=== PATIENT | female | born 1940 | race Caucasian/White ===

== ENCOUNTER 2017-04-15 09:30 | Observation (INO) | payer OTHER, BC ==
[2017-04-15] VITALS (7 sets, daily range): BP systolic 116–139; BP diastolic 72–84; PULSE 72–89; TEMP 36.6–36.8; O2SAT 93–98; Ht 172.7 cm; Wt 76.1 kg
[~2017-04-15] VITALS: Ht 172.7 cm; Wt 76.1 kg
[~2017-04-15 09:30] MED LIST: AMOX500C3 PO; vitamin c
[2017-04-15] MEDS ORDERED: SODIUM CHLORIDE 0.9% 1000ML 1,000 ML IV STA (09:48)
--- NOTE | 2017-04-15 10:01 | EMERGENCY ROOM VISIT NOTE ---
History Report prepared by Maura: Alexsandra Ortega Under the Supervision of: Dr. Ephraim Don M.D. First contact with patient: 09:34 Chief Complaint: OTHER COMPLAINT Stated Complaint: cramping History of Present Illness The patient is a 76 year old female who presents to the Emergency Room with complaints of intermittent left sided numbness that began around 0815 this morning. The patient states that she woke this morning shortly after 0800 and states that around 0815 she developed what she thought was a left sided leg cramp. She states that she then began noticing the numbness in her left leg and left arm. The patient states that she felt weak in her left leg, noting that she could not walk and thought that her leg would give out from under her. She states that her symptoms subsided, but then came back another time. The patient states that last night she took her first dose of an antibiotic for a sinus infection. Source of History: patient Onset: around 0815 this morning Position: other (left sided) Quality: numbness Timing: intermittent Associated Symptoms: + weakness (left leg) Note: Associated symptoms: left leg cramp Review of Systems See HPI for pertinent positives & negatives. A total of 10 systems reviewed and were otherwise negative. Past Medical & Surgical Medical Problems: (1) No Known Active Medical Problems Family History Cancer Social History Marital Status: Occupation Status: retired Current/Historical Medications Scheduled Cefdinir (Omnicef), 12 ML PO BID Vitamins C & E (Vitamin C), 1 CAP PO DAILY Allergies Coded Allergies: Amoxicillin (Unverified Allergy, Unknown, ., 04/15/17) Doxycycline (Unverified Allergy, Unknown, ., 04/15/17) Tetracycline (Unverified Allergy, Unknown, 04/15/17) Prednisone (Verified Adverse Reaction, Mild, LOSES HER TASTE, 04/15/17) Physical Exam Vital Signs Date Time Temp Pulse Resp B/P (MAP) Pulse Ox O2 Delivery O2 Flow Rate FiO2 04/15/17 12:46 79 20 167/95 97 Room Air 04/15/17 10:58 83 04/15/17 10:30 84 15 170/93 04/15/17 10:21 78 14 172/96 95 Room Air 04/15/17 09:58 96 Room Air 04/15/17 09:40 36.9 92 18 168/96 96 Room Air Physical Exam GENERAL: Patient appears acutely agitated, well-nourished female HEAD: Normocephalic atraumatic EYES: Ocular movements intact pupils equal and react to light OROPHARYNX mucous membranes are moist no exudates present no erythema or edema present NECK: Supple no nuchal rigidity CHEST: Good equal expansion LUNGS: Clear and equal to auscultation CARDIAC: Normal S1 and S2 ABDOMEN: Soft nontender no guarding BACK: No CVA tenderness EXTREMITIES: No pain upon palpation normal muscle strength in all groups no clubbing cyanosis or edema NEURO: Patient is following commands and answering questions appropriately. Alert and oriented x3 Cranial Nerves 2-12 grossly intact, 4/5 strength in left arm. Medical Decision & Procedures ER Provider Diagnostic Interpretation: Radiology results as stated below per my review and radiologist interpretation: CT HEAD WITHOUT CONTRAST (CT) CLINICAL HISTORY: Stroke LEFT ARM AND LEG NUMBNESS. COMPARISON STUDY: No previous studies for comparison. TECHNIQUE: Axial CT of the brain is performed from the vertex to the skull base. IV contrast was not administered for this examination. A dose lowering technique was utilized adhering to the principles of ALARA. CT DOSE: 729.78 mGycm FINDINGS: No intra or extra-axial mass lesions are visualized. There is no CT evidence of acute cortical infarction. There is no evidence of midline shift. There is no acute hemorrhage. No calvarial fractures are visualized. There is no evidence of pathologic ventricular dilatation. There is no evidence of acute sinusitis. There is mild mucosal thickening within the maxillary sphenoid and frontal sinuses. IMPRESSION: No acute intracranial findings Electronically signed by: Fabian Robles M.D. 04/15/2017 10:16 AM Dictated Date/Time: 04/15/2017 10:15 AM CHEST ONE VIEW PORTABLE CLINICAL HISTORY: Stroke COMPARISON STUDY: No previous studies for comparison. FINDINGS: The heart is at the upper limits of normal in size. There is aortic tortuosity. There is no failure. There is no focal pulmonary consolidation. No pleural effusions are visualized.[ IMPRESSION: No active disease in the chest. Electronically signed by: Fabian Robles M.D. 04/15/2017 10:12 AM Dictated Date/Time: 04/15/2017 10:[address] NECK ANGIO WITH CONTRAST CLINICAL HISTORY: Left-sided weakness. Possible stroke. COMPARISON STUDY: No previous studies for comparison. TECHNIQUE: CT angiography was performed from the aortic arch to the skull base. MIP imaging was performed. The patient was scanned in a dynamic helical fashion during intravenous administration of 120 cc of Optiray 320. A dose lowering technique was utilized adhering to the principles of ALARA. CT DOSE: 626.03 mGy.cm Technique: CT angiogram of the carotid and vertebral arteries was obtained using intravenous contrast and 3-D reconstruction. NASCET criteria was utilized. Findings: The right carotid revealed no evidence of aneurysm and no evidence of dissection. There is no evidence of hemodynamic significant stenosis. There is atheromatous plaque present within the common carotid resulting a 30% diameter stenosis. There is no evidence of hemodynamic significant internal carotid artery stenosis. There is no evidence of aneurysm or dissection. There is no evidence of hemodynamically significant vertebral stenosis. There is no evidence of vertebral dissection. 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 No evidence of hemodynamically significant carotid or vertebral artery stenosis. No evidence of dissection. Electronically signed by: Fabian Robles M.D. 04/15/2017 11:44 AM Dictated Date/Time: 04/15/2017 11:[address] HEAD ANGIO WITH CONTRAST CLINICAL HISTORY: Left-sided weakness. Possible stroke. TECHNIQUE: CT angiography of the head was performed in a dynamic helical fashion during intravenous administration of 120. cc of Optiray 320. A dose lowering technique was utilized adhering to the principles of ALARA. MIP imaging was performed. CT DOSE: COMPARISON STUDY: Noncontrast head CT dated 04/13/2017 FINDINGS: There are no lesion suspicious for aneurysm. There are no major intracranial branch occlusions. The dural venous sinuses appear patent. IMPRESSION: Normal study. Electronically signed by: Fabian Robles M.D. 04/15/2017 11:32 AM Dictated Date/Time: 04/15/2017 11:29 AM Laboratory Results 04/15/17 10:00 Red Blood Count 4.79, Mean Corpuscular Volume 96.9, Mean Corpuscular Hemoglobin 35.1, Mean Corpuscular Hemoglobin Concent 36.2, Mean Platelet Volume 9.2, Neutrophils (%) (Auto) 46.9, Lymphocytes (%) (Auto) 41.9, Monocytes (%) (Auto) 7.4, Eosinophils (%) (Auto) 3.0, Basophils (%) (Auto) 0.7, Neutrophils # (Auto) 3.17, Lymphocytes # (Auto) 2.84, Monocytes # (Auto) 0.50, Eosinophils # (Auto) 0.20, Basophils # (Auto) 0.05 04/15/17 10:00 Test 04/15/17 10:00 04/15/17 10:16 04/15/17 10:18 04/15/17 11:30 White Blood Count 6.77 K/uL (4.8-10.8) Red Blood Count 4.79 M/uL (4.2-5.4) Hemoglobin 16.8 g/dL (12.0-16.0) Hematocrit 46.4 % (37-47) Mean Corpuscular Volume 96.9 fL (80-100) Mean Corpuscular Hemoglobin 35.1 pg (25-34) Mean Corpuscular Hemoglobin Concent 36.2 g/dl (32-36) Platelet Count 325 K/uL (130-400) Mean Platelet Volume 9.2 fL (7.4-10.4) Neutrophils (%) (Auto) 46.9 % Lymphocytes (%) (Auto) 41.9 % Monocytes (%) (Auto) 7.4 % Eosinophils (%) (Auto) 3.0 % Basophils (%) (Auto) 0.7 % Neutrophils # (Auto) 3.17 K/uL (1.4-6.5) Lymphocytes # (Auto) 2.84 K/uL (1.2-3.4) Monocytes # (Auto) 0.50 K/uL (0.11-0.59) Eosinophils # (Auto) 0.20 K/uL (0-0.5) Basophils # (Auto) 0.05 K/uL (0-0.2) RDW Standard Deviation 44.5 fL (36.4-46.3) RDW Coefficient of Variation 12.6 % (11.5-14.5) Immature Granulocyte % (Auto) 0.1 % Immature Granulocyte # (Auto) 0.01 K/uL (0.00-0.02) Prothrombin Time 10.6 SECONDS (9.0-12.0) Prothromb Time International Ratio 1.0 (0.9-1.1) Activated Partial Thromboplast Time 26.9 SECONDS (21.0-31.0) Partial Thromboplastin Ratio 1.0 Anion Gap 11.0 mmol/L (3-11) Est Creatinine Clear Calc Drug Dose 54.7 ml/min Estimated GFR () 72.0 Estimated GFR (Non- 62.2 BUN/Creatinine Ratio 10.4 (10-20) Calcium Level 9.3 mg/dl (8.5-10.1) Magnesium Level 2.3 mg/dl (1.8-2.4) Total Creatine Kinase 201 U/L (26-192) Creatine Kinase MB 4.2 ng/ml (0.5-3.6) Creatine Kinase MB Ratio 2.1 (0-3.0) Troponin I < 0.015 ng/ml (0-0.045) Ethyl Alcohol mg/dL < 3.0 mg/dl (0-3) Bedside Glucose 99 mg/dl (70-90) Urine Color YELLOW Urine Appearance CLEAR (CLEAR) Urine pH 5.5 (4.5-7.5) Urine Specific [place] 1.022 (1.000-1.030) Urine Protein NEG (NEG) Urine Glucose (UA) NEG (NEG) Urine Ketones NEG (NEG) Urine Occult Blood NEG (NEG) Urine Nitrite NEG (NEG) Urine Bilirubin NEG (NEG) Urine Urobilinogen NEG (NEG) Urine Leukocyte Esterase SMALL (NEG) Urine WBC (Auto) 1-5 /hpf (0-5) Urine RBC (Auto) 0-4 /hpf (0-4) Urine Hyaline Casts (Auto) 0 /lpf (0-5) Urine Epithelial Cells (Auto) 10-20 /lpf (0-5) Urine Bacteria (Auto) NEG (NEG) Urine Opiates Screen NEG (NEG) Urine Methadone, Qualitative NEG (NEG) Urine Barbiturates NEG (NEG) Urine Phencyclidine (PCP) Level NEG (NEG) Ur Amphetamine/Methamphetamine NEG (NEG) MDMA (Ecstasy) Screen NEG (NEG) Urine Benzodiazepines Screen NEG (NEG) Urine Cocaine Metabolite NEG (NEG) Urine Marijuana (THC) NEG (NEG) Labs reviewed by ED physician. Medications Administered Medications (Trade) Dose Ordered Sig/Davin Route Start Time Stop Time Status Last Admin Dose Admin Sodium Chloride 1,000 ml @ 999 mls/hr Q1H1M STAT IV 04/15/17 09:48 04/15/17 10:48 DC 04/15/17 09:48 999 MLS/HR Aspirin (Aspirin Chew) 324 mg NOW STAT PO 04/15/17 10:40 04/15/17 10:41 DC 04/15/17 10:40 324 MG ECG Indication: weakness (and numbness) Rate (beats per minute): 73 Rhythm: normal sinus Findings: no acute ischemic change, no ectopy ED Course 0939: Past medical records reviewed. The patient was evaluated in room A11B. A complete history and physical examination was performed. 0948: Ordered Sodium Chloride 1000 ml @ 999 mls/hr IV. 1020: I spoke to Jazmyn Kenney Neurology. She states that she will evaluate the patient via TeleStroke. 1022: I updated the patient and her friends and family at this time. 1039: I spoke to Jazmyn Kenney Neurology at this time. She would like the patient to have a CTA of the head and neck and for the patient to receive aspirin. 1040: Ordered Aspirin 324 mg PO. 1200: I reevaluated the patient and she is resting. I discussed the exam findings with her and I discussed the treatment plan. She verbalized complete understanding and agreement. She is going to be evaluated for further treatment. 1204: I discussed the patients case with Dr. [facility]eno [facility] [place]. She is going to evaluate the patient for further treatment. Medical Decision Differential diagnosis: Etiologies such as metabolic, infection, hypo/hyperglycemia, electrolyte abnormalities, cardiac sources, intracerebral event, toxicologic, neurologic, as well as others were entertained. This is a 76-year-old female who presents emergency department unable to move her left arm and left leg this morning. The history is difficult to obtained from the female and she is very anxious. On physical exam she appears to have 4 -5 strength both to her left arm as well as her left leg. Based on this finding a stroke alert was immediately initiated. The patient was sent for CAT scan of the head which did not show any acute process. I did discuss the case with Jazmyn neurologist who asked that the patient be sent for CTA of the head and neck and to be given 324 of aspirin. She was also given a bolus of fluid. I did discuss the case with the hospitalist service who agreed to admit the patient. Patient was in agreement with the treatment plan. Medication Reconcilliation Current Medication List: was personally reviewed by me Blood Pressure Screening Patient's blood pressure: Elevated blood pressure Blood pressure disposition: Referred to PCP Consults Time Called: 1018 Consulting Physician: Ayo Kenney Neurology Returned Call: 1020 I spoke to Jazmyn Kenney Neurology. She states that she will evaluate the patient via TeleStroke. Additional Consults: Time Called: 1200 Consulted Physician: AYAKA Saavedra Returned Call: 1204 Additional Comments: I discussed the patients case with AYAKA Saavedra. She is going to evaluate the patient for further treatment. Impression Primary Impression: TIA (transient ischemic attack) Scribe Attestation The scribe's documentation has been prepared under my direction and personally reviewed by me in its entirety. I confirm that the note above accurately reflects all work, treatment, procedures, and medical decision making performed by me. Departure Information Dispostion Being Evaluated By Hospitalist Referrals Ange Cohen D.O. (PCP) Problem Qualifiers Primary Impression: TIA (transient ischemic attack) Transient cerebral ischemia type: unspecified Qualified Codes: G45.9 - Transient cerebral ischemic attack, unspecified
--- NOTE | 2017-04-15 10:13 | DIAGNOSTIC IMAGING REPORT ---
CHEST ONE VIEW PORTABLE CLINICAL HISTORY: Stroke COMPARISON STUDY: No previous studies for comparison. FINDINGS: The heart is at the upper limits of normal in size. There is aortic tortuosity. There is no failure. There is no focal pulmonary consolidation. No pleural effusions are visualized.[ IMPRESSION: No active disease in the chest. Electronically signed by: Fabian Robles M.D. 04/15/2017 10:12 AM Dictated Date/Time: 04/15/2017 10:11 AM
[2017-04-15 10:16] LABS: BASO % 0.7 %; BASO ABS # 0.05 K/uL (0-0.2); COMPLETE YES; HEMATOCRIT 46.4 % (37-47); IG% 0.1 %; LYMPH % 41.9 %; LYMPH ABS # 2.84 K/uL (1.2-3.4); MEAN CELL VOLUME 96.9 fL (80-100); MEAN CORPUSCULAR HEMOGLOBIN 35.1 pg (25-34); MEAN CORPUSCULAR HGB CONC 36.2 g/dl (32-36); MEAN PLATELET VOLUME 9.2 fL (7.4-10.4); MONO % 7.4 %; NEUT % 46.9 %; PLATELET COUNT 325 K/uL (130-400); RED BLOOD COUNT 4.79 M/uL (4.2-5.4); WHITE BLOOD COUNT 6.77 K/uL (4.8-10.8)
--- NOTE | 2017-04-15 10:17 | DIAGNOSTIC IMAGING REPORT ---
CT HEAD WITHOUT CONTRAST (CT) CLINICAL HISTORY: Stroke LEFT ARM AND LEG NUMBNESS. COMPARISON STUDY: No previous studies for comparison. TECHNIQUE: Axial CT of the brain is performed from the vertex to the skull base. IV contrast was not administered for this examination. A dose lowering technique was utilized adhering to the principles of ALARA. CT DOSE: 729.78 mGycm FINDINGS: No intra or extra-axial mass lesions are visualized. There is no CT evidence of acute cortical infarction. There is no evidence of midline shift. There is no acute hemorrhage. No calvarial fractures are visualized. There is no evidence of pathologic ventricular dilatation. There is no evidence of acute sinusitis. There is mild mucosal thickening within the maxillary sphenoid and frontal sinuses. IMPRESSION: No acute intracranial findings Electronically signed by: Fabian Robles M.D. 04/15/2017 10:16 AM Dictated Date/Time: 04/15/2017 10:15 AM
[2017-04-15 10:25] LABS: PROTHROMBIN TIME (PATIENT) 10.6 SECONDS (9.0-12.0)
[2017-04-15 10:36] LABS: BLOOD UREA NITROGEN 9 mg/dl (7-18); BUN/CREATININE RATIO 10.4 (10-20); CALCIUM 9.3 mg/dl (8.5-10.1); CARBON DIOXIDE 22 mmol/L (21-32); CHLORIDE 106 mmol/L (98-107); CREATININE 0.91 mg/dl (0.60-1.20); GLUCOSE 99 mg/dl (70-99); MAGNESIUM 2.3 mg/dl (1.8-2.4); POTASSIUM 3.9 mmol/L (3.5-5.1); SODIUM 139 mmol/L (136-145)
[2017-04-15] MEDS ORDERED: ASPIRIN 81 MG CHEW PO STA (10:40)
[2017-04-15 10:41] LABS: CKMB/CK RATIO 2.1 (0-3.0)
[2017-04-15] MEDS ORDERED: OPTIRAY 320 IV PRN (10:45)
[2017-04-15] MEDS ORDERED: CEFD125S19 PO (11:04)
[2017-04-15] MEDS ORDERED: VITACAP26 PO (11:04)
--- NOTE | 2017-04-15 11:34 | DIAGNOSTIC IMAGING REPORT ---
CT HEAD ANGIO WITH CONTRAST CLINICAL HISTORY: Left-sided weakness. Possible stroke. TECHNIQUE: CT angiography of the head was performed in a dynamic helical fashion during intravenous administration of 120. cc of Optiray 320. A dose lowering technique was utilized adhering to the principles of ALARA. MIP imaging was performed. CT DOSE: COMPARISON STUDY: Noncontrast head CT dated 04/13/2017 FINDINGS: There are no lesion suspicious for aneurysm. There are no major intracranial branch occlusions. The dural venous sinuses appear patent. IMPRESSION: Normal study. Electronically signed by: Fabian Robles M.D. 04/15/2017 11:32 AM Dictated Date/Time: 04/15/2017 11:29 AM
--- NOTE | 2017-04-15 11:45 | DIAGNOSTIC IMAGING REPORT ---
CT NECK ANGIO WITH CONTRAST CLINICAL HISTORY: Left-sided weakness. Possible stroke. COMPARISON STUDY: No previous studies for comparison. TECHNIQUE: CT angiography was performed from the aortic arch to the skull base. MIP imaging was performed. The patient was scanned in a dynamic helical fashion during intravenous administration of 120 cc of Optiray 320. A dose lowering technique was utilized adhering to the principles of ALARA. CT DOSE: 626.03 mGy.cm Technique: CT angiogram of the carotid and vertebral arteries was obtained using intravenous contrast and 3-D reconstruction. NASCET criteria was utilized. Findings: The right carotid revealed no evidence of aneurysm and no evidence of dissection. There is no evidence of hemodynamic significant stenosis. There is atheromatous plaque present within the common carotid resulting a 30% diameter stenosis. There is no evidence of hemodynamic significant internal carotid artery stenosis. There is no evidence of aneurysm or dissection. There is no evidence of hemodynamically significant vertebral stenosis. There is no evidence of vertebral dissection. 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 No evidence of hemodynamically significant carotid or vertebral artery stenosis. No evidence of dissection. Electronically signed by: Fabian Robles M.D. 04/15/2017 11:44 AM Dictated Date/Time: 04/15/2017 11:40 AM
[2017-04-15 12:29] LABS: URINE APPEARANCE CLEAR (CLEAR); URINE BILIRUBIN NEG (NEG); URINE COLOR YELLOW; URINE NITRITE NEG (NEG); URINE PH 5.5 (4.5-7.5); URINE SPECIFIC GRAVITY 1.022 (1.000-1.030); UROBILINOGEN NEG (NEG); ZZUR CULT IF INDIC CLEAN CATCH NO
[2017-04-15 12:30] LABS: MANUAL MICROSCOPIC REQUIRED? NO; REVIEW REQ? NO
[2017-04-15 13:14] LABS: BENZODIAZEPINE, URINE NEG (NEG); COCAINE,URINE NEG (NEG); PHENCYCLIDINE, URINE NEG (NEG)
[2017-04-15] MEDS ORDERED: PHARMACIST DISCHARGE MED REC CONSULT PRN (13:30)
[2017-04-15] MEDS ORDERED: ONDANSETRON INJ 2 MG/ML 2 ML VIAL IV PRN (13:30)
[2017-04-15] MEDS ORDERED: ACETAMINOPHEN 325 MG TAB PO PRN (13:30)
[2017-04-15] MEDS ORDERED: MAGNESIUM HYDROXIDE SUSP 30 ML UDC PO PRN (13:30)
--- NOTE | 2017-04-15 14:01 | History and Physical ---
History & Physical Date & Time of Service: Apr 15, 2017 at 13:32 Chief Complaint: cramping Primary Care Physician: Ange Cohen D.O. History of Present Illness Source: patient 76 y/o F c/o UE/LE numbness and weakness. Pt states she woke up around 8am. She got up to use the bathroom and had no issues. She got back into bed but then decided to get up for travel plans with her friend who is visiting from [place]. She noted her L UE was numb. She could move it around as per usual, but it felt numb with tingling. She then attempted to get out of bed and found that her L LE was weak and could not support her. She stubbled to a dresser and called for her friend. She was able to catch herself with her L UE. This happened around 815. They called an ambulance, but pt's sx resolved prior to the ambulance arrival. She thinks the sx last about 15 minutes. About 10 minutes later, her sx returned, the same as prior. The ambulance was called again. Pt's sx had resolved prior to the ambulance arrival, however she did agree to further eval given the recurrence. Pt denies any sort of confusion with this episode. Her friend did not note any sort of facial droop, however he did apparently tell her that her speech was just a bit slurred. Apparently a policewoman who arrived to her home said the same thing regarding her speech. Pt states that she was seen at her PCP office yesterday for a "cold". She states that she has been having upper respiratory sx: cough, congestion since and they were not resolving. She then developed head congestion and was seen for possible sinusitis. She was given a prescription for cefdinir, and she took the first dose last night. She did not take it this AM due to the stroke like sx. Pt otherwise has felt at her usual. Pt denies fever, SOB, chest pain, abd pain , n/v/c/d, LE pain or swelling. Pt was evaluated [facility] telemed in the ED and there is concern for stuttering TIA. They have recommended admission with MRI/MRA. Past Medical/Surgical History Breast cancer, in remission x7 years, treated with radiation only Family History Family history was reviewed; no changes noted. Younger sister with CVA 1 year ago No other relatives with CVA Social History Smoking Status: Current Every Day Smoker (1/2ppd) Alcohol Use: drinks wine daily "I'm not sure how much because it is in a box, but I don't drink the whole box. Maybe 1 bottle a day." No hx of shakiness, withdrawals, seizires Drug Use: marijuana (once per week) Marital Status: Housing status: lives alone Occupational Status: retired Multi-Drug Resistant Organisms History of MDRO: No Allergies Coded Allergies: Amoxicillin (Unverified Allergy, Unknown, ., 04/15/17) Doxycycline (Unverified Allergy, Unknown, ., 04/15/17) Tetracycline (Unverified Allergy, Unknown, 04/15/17) Prednisone (Verified Adverse Reaction, Mild, LOSES HER TASTE, 04/15/17) Home Medications Scheduled Cefdinir (Omnicef), 12 ML PO BID Vitamins C & E (Vitamin C), 1 CAP PO DAILY Review of Systems Pertinent positives and negatives reviewed in HPI--all others negative Physical Exam Vital Signs Date Time Temp Pulse Resp B/P (MAP) Pulse Ox O2 Delivery O2 Flow Rate FiO2 04/15/17 12:46 79 20 167/95 97 Room Air 04/15/17 10:58 83 04/15/17 10:30 84 15 170/93 04/15/17 10:21 78 14 172/96 95 Room Air 04/15/17 09:58 96 Room Air 04/15/17 09:40 36.9 92 18 168/96 96 Room Air General Appearance: WD/WN, no apparent distress Head: normocephalic, atraumatic Eyes: normal inspection, PERRL, EOMI Respiratory/Chest: normal breath sounds, no respiratory distress Cardiovascular: regular rate, rhythm, no edema Abdomen/GI: non tender, soft Extremities/Musculoskelatal: no calf tenderness, no pedal edema Neurologic/Psych: recreational resort manager II-XII nml as tested, alert, oriented x 3, + pertinent finding (= optometric assistant strength 5/5 b/l, ambulating without issues, UE ROM is WNL, speech is appropriate, conversation is normal but hard to direct at times) Skin: normal color, warm/dry Diagnostics Laboratory Results Results Past 24 Hours Test 04/15/17 10:00 04/15/17 10:16 04/15/17 10:18 04/15/17 11:30 Range/Units White Blood Count 6.77 4.8-10.8 K/uL Red Blood Count 4.79 4.2-5.4 M/uL Hemoglobin 16.8 12.0-16.0 g/dL Hematocrit 46.4 37-47 % Mean Corpuscular Volume 96.9 80-100 fL Mean Corpuscular Hemoglobin 35.1 25-34 pg Mean Corpuscular Hemoglobin Concent 36.2 32-36 g/dl Platelet Count 325 130-400 K/uL Mean Platelet Volume 9.2 7.4-10.4 fL Neutrophils (%) (Auto) 46.9 % Lymphocytes (%) (Auto) 41.9 % Monocytes (%) (Auto) 7.4 % Eosinophils (%) (Auto) 3.0 % Basophils (%) (Auto) 0.7 % Neutrophils # (Auto) 3.17 1.4-6.5 K/uL Lymphocytes # (Auto) 2.84 1.2-3.4 K/uL Monocytes # (Auto) 0.50 0.11-0.59 K/uL Eosinophils # (Auto) 0.20 0-0.5 K/uL Basophils # (Auto) 0.05 0-0.2 K/uL RDW Standard Deviation 44.5 36.4-46.3 fL RDW Coefficient of Variation 12.6 11.5-14.5 % Immature Granulocyte % (Auto) 0.1 % Immature Granulocyte # (Auto) 0.01 0.00-0.02 K/uL Prothrombin Time 10.6 9.0-12.0 SECONDS Prothromb Time International Ratio 1.0 0.9-1.1 Activated Partial Thromboplast Time 26.9 21.0-31.0 SECONDS Partial Thromboplastin Ratio 1.0 Sodium Level 139 136-145 mmol/L Potassium Level 3.9 3.5-5.1 mmol/L Chloride Level 106 98-107 mmol/L Carbon Dioxide Level 22 21-32 mmol/L Anion Gap 11.0 3-11 mmol/L Blood Urea Nitrogen 9 7-18 mg/dl Creatinine 0.91 0.60-1.20 mg/dl Est Creatinine Clear Calc Drug Dose 54.7 ml/min Estimated GFR () 72.0 Estimated GFR (Non- 62.2 BUN/Creatinine Ratio 10.4 10-20 Random Glucose 99 70-99 mg/dl Calcium Level 9.3 8.5-10.1 mg/dl Magnesium Level 2.3 1.8-2.4 mg/dl Total Creatine Kinase 201 26-192 U/L Creatine Kinase MB 4.2 0.5-3.6 ng/ml Creatine Kinase MB Ratio 2.1 0-3.0 Troponin I < 0.015 0-0.045 ng/ml Ethyl Alcohol mg/dL < 3.0 0-3 mg/dl Bedside Glucose 99 70-90 mg/dl Urine Color YELLOW Urine Appearance CLEAR CLEAR Urine pH 5.5 4.5-7.5 Urine Specific [place] 1.022 1.000-1.030 Urine Protein NEG NEG Urine Glucose (UA) NEG NEG Urine Ketones NEG NEG Urine Occult Blood NEG NEG Urine Nitrite NEG NEG Urine Bilirubin NEG NEG Urine Urobilinogen NEG NEG Urine Leukocyte Esterase SMALL NEG Urine WBC (Auto) 1-5 0-5 /hpf Urine RBC (Auto) 0-4 0-4 /hpf Urine Hyaline Casts (Auto) 0 0-5 /lpf Urine Epithelial Cells (Auto) 10-20 0-5 /lpf Urine Bacteria (Auto) NEG NEG Urine Opiates Screen NEG NEG Urine Methadone, Qualitative NEG NEG Urine Barbiturates NEG NEG Urine Phencyclidine (PCP) Level NEG NEG Ur Amphetamine/Methamphetamine NEG NEG MDMA (Ecstasy) Screen NEG NEG Urine Benzodiazepines Screen NEG NEG Urine Cocaine Metabolite NEG NEG Urine Marijuana (THC) NEG NEG Diagnostic Radiology CT head neg for acute CXR neg for acute CTA neck: IMPRESSION: Atheromatous changes, most pronounced within the left common carotid artery. No evidence of hemodynamically significant carotid or vertebral artery stenosis. No evidence of dissection. CTA head neg for acute EKG NSR Impression Assessment and Plan 76 y/o F who was admitted for observation on 04/15 for stuttering TIA. Stuttering TIA: concerning for possible evolving CVA CTA head/neck noted with some artherosclerosis on 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 Y/N: Yes Risk Level: Low
[2017-04-15 14:30] LABS: ESTIMATED AVERAGE GLUCOSE 114 mg/dl; HA1C FLAG Normal (Normal)
[2017-04-15] MEDS ORDERED: LORAZEPAM 2 MG/ML 1 ML VIAL IV SCH (14:45)
[2017-04-15] MEDS ORDERED: NICOTINE 14 MG/24 HR TDSY TD PRN (15:00)
[2017-04-15] MEDS ORDERED: IV FLUIDS COMPLETED PRN (15:15)
--- NOTE | 2017-04-15 17:21 | DIAGNOSTIC IMAGING REPORT ---
MR ANGIOGRAM OF THE BRAIN CLINICAL HISTORY: Strokelike symptoms. COMPARISON STUDY: MRI of the brain performed concurrently on 04/15/2017. TECHNIQUE: 3-D [id number] MR angiography of the intracranial circulation is performed. 3-D tumble views are created and assessed. IV contrast was not administered for this examination. The examination is modestly degraded by motion artifact. FINDINGS: The [place] of [place] is developmentally complete with large bilateral posterior communicating arteries. The internal carotid arteries are widely patent bilaterally, as are the anterior and middle cerebral arteries. The vertebrobasilar system is diminutive but widely patent. The posterior cerebral arteries are clear. The vertebral arteries are codominant. There is no aneurysm, high-grade stenosis, or focal vessel cutoff seen throughout the intracranial circulation. The brain parenchyma is normal as visualized. IMPRESSION: Unremarkable MR angiogram of the brain. Electronically signed by: Rishi Kwon M.D. 04/15/2017 5:20 PM Dictated Date/Time: 04/15/2017 5:18 PM
--- NOTE | 2017-04-15 17:27 | DIAGNOSTIC IMAGING REPORT ---
MR ANGIOGRAM OF THE NECK COMBO CLINICAL HISTORY: Stroke-like symptoms. COMPARISON STUDY: CT angiogram of the neck performed 04/15/2017. TECHNIQUE: Axial 2-D [id number] MR angiography of the neck is performed. Subsequently, following the IV administration of 7 cc of Gadavist. Coronal MR angiogram of the neck was performed to corroborate the findings. 3-D reformats are created and assessed. All measurements were calculated based on NASCET criteria. FINDINGS: Visualized portions of the thoracic aorta are normal in caliber. The aortic arch demonstrates bovine variant anatomy. The subclavian arteries are widely patent bilaterally. The right common carotid artery is widely patent, as are the right internal and external carotid arteries. The left common carotid artery is widely patent, as are the left internal and external carotid arteries. The vertebral arteries are widely patent. The left vertebral artery is dominant. The visualized intracranial vessels at the skull base appear patent. IMPRESSION: Unremarkable MR angiogram of the neck. Electronically signed by: Rishi Kwon M.D. 04/15/2017 5:26 PM Dictated Date/Time: 04/15/2017 5:21 PM
[2017-04-15] MEDS ORDERED: GADAVIST IV PRN (17:30)
--- NOTE | 2017-04-15 17:34 | DIAGNOSTIC IMAGING REPORT ---
MRI OF THE BRAIN WITHOUT AND WITH IV CONTRAST CLINICAL HISTORY: Left arm and leg numbness. Evaluate for stroke. COMPARISON STUDY: Head CT and CTA of the head April 20, 2017. TECHNIQUE: Utilizing a 1.5 Catherine magnet and dedicated coil, multiplanar, multiecho imaging of the brain was performed pre and postcontrast administration. IV administration of 7 mL of Gadavist contrast was uneventful. FINDINGS: There are no areas of restricted diffusion. No acute intracranial hemorrhage, midline shift or mass effect is present. Ventricular system is normal for age. Basilar cisterns are patent. There are no extra-axial collections. Flow-voids for the major intracranial vessels are present. There is no intracranial mass or pathologic enhancement. Exam is mildly compromised by motion artifact. There is mild mucosal thickening of the sinuses. IMPRESSION: 1. No acute intracranial findings. 2. No intracranial mass or pathologic enhancement. Electronically signed by: Barrie Worley M.D. 04/15/2017 5:33 PM Dictated Date/Time: 04/15/2017 5:20 PM
[2017-04-15] MEDS: CEFDINIR 125 MG/5 ML 60 ML BTL PO SCH (20:15)
[2017-04-15] MEDS ORDERED: CEFDINIR 125 MG/5 ML 60 ML BTL PO SCH (21:00)
[2017-04-16] VITALS (7 sets, daily range): BP systolic 128–146; BP diastolic 78–86; PULSE 61–76; TEMP 36.4–36.9; O2SAT 94–96
[2017-04-16 03:51] LABS: BUN/CREATININE RATIO 13.8 (10-20); CALCIUM 8.7 mg/dl (8.5-10.1); CARBON DIOXIDE 26 mmol/L (21-32); CHLORIDE 105 mmol/L (98-107); CREATININE 0.99 mg/dl (0.60-1.20); GLUCOSE 91 mg/dl (70-99); POTASSIUM 3.9 mmol/L (3.5-5.1); SODIUM 137 mmol/L (136-145)
[2017-04-16 03:56] LABS: CHOLESTEROL 182 mg/dl (0-200); CHOLESTEROL/HDL RATIO 2.9; HDL CHOLESTEROL 63 mg/dl; LDL CHOLESTEROL CALCULATED 103 mg/dl; TRIGLYCERIDES 80 mg/dl (0-150); VERY LOW DENSITY LIPOPROT CALC 16 mg/dl
[2017-04-16 04:14] LABS: BLOOD UREA NITROGEN 14 mg/dl (7-18)
[2017-04-16 07:12] LABS: BASO % 0.6 %; BASO ABS # 0.04 K/uL (0-0.2); COMPLETE YES; EOS % 4.1 %; HEMATOCRIT 42.3 % (37-47); LYMPH % 48.1 %; LYMPH ABS # 3.17 K/uL (1.2-3.4); MEAN CELL VOLUME 98.8 fL (80-100); MEAN CORPUSCULAR HEMOGLOBIN 33.6 pg (25-34); MEAN PLATELET VOLUME 9.5 fL (7.4-10.4); MONO % 9.4 %; NEUT % 37.8 %; PLATELET COUNT 311 K/uL (130-400); RED BLOOD COUNT 4.28 M/uL (4.2-5.4); WHITE BLOOD COUNT 6.59 K/uL (4.8-10.8)
[2017-04-16] MEDS: CEFDINIR 125 MG/5 ML 60 ML BTL PO SCH (07:47)
[2017-04-16] MEDS ORDERED: ATORVASTATIN 40 MG TAB PO SCH (09:00)
[2017-04-16] MEDS ORDERED: NON-FORMULARY MEDICATION (Vitamins C & E (Vitamin C) 1 CAP) PO SCH (09:00)
[2017-04-16] MEDS ORDERED: ASPIRIN 81 MG ECTAB PO SCH (09:00)
--- NOTE | 2017-04-16 09:40 | Neurology Consultation ---
Neurology Consultation Date of Consultation: Apr 16, 2017. Attending Physician: Radha Bueno DO Primary Care Physician: Ange Cohen D.O. Reason for Consultation: Consultation for TIA History of Present Illness Source: patient, hospital records This is a 76-year-old right-handed female who presents for acute onset of left- sided numbness and weakness. She reports that she woke up yesterday in her normal state of health except for having an upper respiratory cold. She was on antibiotics for it but no pseudoephedrine product. She reports that she laid down to try to get an extra hour of sleep, and when she tried to get up again she had significant weakness and numbness in her left upper and lower extremity. It lasted for about 10 minutes and then resolved and then after another 5 minutes came back. By the time she arrived at the emergency room it had resolved again. She is uncertain whether there was any facial involvement. She did report that her friend thought that her speech sounded slurred at that time. No changes in vision. She did have a stroke alert called and was evaluated. Patient reports that she feels like she is at her normal baseline this morning. She denies any previous strokelike events. Denies any chest pain or shortness of breath. Denies any heart palpitations. She has walked around with physical therapy and feels stable. CTA of the head and neck was reviewed and noted some atherosclerotic changes but no critical stenosis MRI of the brain report and images reviewed by myself and appears normal for age. No signs of acute stroke Tox screen was negative Total cholesterol 182, LDL 103, HDL 63, triglycerides 80, hemoglobin A1c 5.6 Patient denies that she is taking any medications other than vitamins supplements at the time of this event. She does admit to smoking marijuana about one per week. She does smoke about half pack of cigarettes per day. She also admits to drinking approximately a bottle of wine per day. She denies ever having any DTs or withdrawal. She sometimes gets withdrawal caffeine headaches but otherwise denies any significant or new headaches. Past Medical/Surgical History Medical Problems: (1) TIA (transient ischemic attack) Status: Acute History of breast cancer in remission Family History Sister with a stroke Social History Patient is normally independent in her activities of daily living. Smokes about a half pack per day. Drinks about one bottle of wine. Smokes marijuana about one per week. Alcohol Use: drinks wine daily "I'm not sure how much because it is in a box, but I don't drink the whole box. Maybe 1 bottle a day." No hx of shakiness, withdrawals, seizires Drug Use: marijuana (once per week) Marital Status: Occupation Status: retired Allergies Coded Allergies: Amoxicillin (Unverified Allergy, Unknown, ., 04/15/17) Doxycycline (Unverified Allergy, Unknown, ., 04/15/17) Tetracycline (Unverified Allergy, Unknown, 04/15/17) Prednisone (Verified Adverse Reaction, Mild, LOSES HER TASTE, 04/15/17) Current Inpatient Medications Current Inpatient Medications Medications (Trade) Dose Ordered Sig/Davin Route Start Time Stop Time Status Last Admin Dose Admin Ioversol (Optiray 320) 100 ml UD PRN IV 04/15/17 10:45 04/19/17 10:44 Atorvastatin Calcium (Lipitor Tab) 40 mg QAM PO 04/16/17 09:00 05/16/17 08:59 04/16/17 07:46 40 MG Aspirin (Ecotrin Tab) 81 mg QAM PO 04/16/17 09:00 05/16/17 08:59 04/16/17 07:46 81 MG Miscellaneous Information (Pharmacist Discharge Med Rec Consult) 1 ea UD PRN N/A 04/15/17 13:30 05/15/17 13:29 Acetaminophen (Tylenol Tab) 650 mg Q4H PRN PO 04/15/17 13:30 05/15/17 13:29 Magnesium Hydroxide (Milk Of Magnesia Susp) 30 ml Q12H PRN PO 04/15/17 13:30 05/15/17 13:29 Ondansetron HCl (Zofran Inj) 4 mg Q6H PRN IV 04/15/17 13:30 05/15/17 13:29 Nicotine (Nicoderm Cq 14MG Patch) 1 patch QAM PRN TD 04/15/17 15:00 05/15/17 14:59 Miscellaneous (Remove Nicoderm Patch) 1 ea HS N/A 04/15/17 21:00 05/15/17 20:59 Miscellaneous (Iv Fluids Completed) 1 ea PRN PRN N/A 04/15/17 15:15 04/15/18 15:14 Gadobutrol (Gadavist) 7 mmol UD PRN IV 04/15/17 17:30 04/19/17 17:29 Cefdinir (Omnicef Susp) 300 mg BID PO 04/15/17 21:00 04/25/17 20:59 04/16/17 07:47 300 MG Review of Systems Complete review of systems otherwise negative except for the above-noted history of present illness Physical Exam Vital Signs (Past 24 Hrs): Date Time Temp Pulse Resp B/P (MAP) Pulse Ox O2 Delivery O2 Flow Rate FiO2 04/16/17 08:00 95 Room Air 04/16/17 07:12 36.9 76 18 132/78 (96) 95 Room Air 04/16/17 04:00 36.6 61 18 128/80 (96) 95 Room Air 04/16/17 04:00 Room Air 04/16/17 00:04 36.9 69 18 130/86 (101) 96 Room Air 04/15/17 23:59 Room Air 04/15/17 22:34 36.6 72 20 137/81 (99) 96 Room Air 04/15/17 20:00 36.7 87 16 116/72 (87) 93 Room Air 04/15/17 20:00 98 Room Air 04/15/17 18:34 36.8 89 18 118/80 (93) 95 Room Air 04/15/17 18:10 36.7 87 16 116/72 (87) 93 Room Air 04/15/17 14:34 36.6 76 18 139/84 (102) 96 Room Air 04/15/17 14:30 36.6 76 18 139/84 (102) 96 Room Air 04/15/17 14:19 36.6 76 18 139/84 96 Room Air 04/15/17 12:46 79 20 167/95 97 Room Air 04/15/17 10:58 83 04/15/17 10:30 84 15 170/93 04/15/17 10:21 78 14 172/96 95 Room Air 04/15/17 09:58 96 Room Air 04/15/17 09:40 36.9 92 18 168/96 96 Room Air Gen.: Patient is alert and sitting on the side of the bed, in no acute distress. HEENT: Normocephalic /atraumatic, no scleral icterus Heart: Regular rate and rhythm Extremities: No gross deformities or rashes noted Neurological examination: Mental status: Patient is alert and oriented x3. Attention and concentration normal for the situation. Good fund of knowledge. Remote and recent memory intact. Speech is fluent without any dysarthria or aphasia noted Cranial nerve: Funduscopic examination was unremarkable. No papilledema. Pupils equally round and reactive to light. Extraocular muscles intact without nystagmus. No facial asymmetry noted. Facial sensation intact. Tongue is midline. Good palatal elevation. Good shoulder shrug bilaterally. Hearing grossly intact to voice. Strength: 5/5 both proximal and distally in all extremities. There is no arm drift. Tone is normal. Sensation: Grossly intact to light touch in all extremities. Deep tendon reflexes: +1 in bilateral biceps, brachioradialis and patellar. Coordination: Patient had good finger to nose without dysmetria Station within the bed and standing was normal Laboratory Results Past 24 Hours: 04/16/17 05:50 Red Blood Count 4.28, Mean Corpuscular Volume 98.8, Mean Corpuscular Hemoglobin 33.6, Mean Corpuscular Hemoglobin Concent 34.0, Mean Platelet Volume 9.5, Neutrophils (%) (Auto) 37.8, Lymphocytes (%) (Auto) 48.1, Monocytes (%) (Auto) 9.4, Eosinophils (%) (Auto) 4.1, Basophils (%) (Auto) 0.6, Neutrophils # (Auto) 2.49, Lymphocytes # (Auto) 3.17, Monocytes # (Auto) 0.62, Eosinophils # (Auto) 0.27, Basophils # (Auto) 0.04 04/16/17 03:22 Test 04/15/17 10:00 04/15/17 10:16 04/15/17 11:30 04/15/17 20:22 Prothrombin Time 10.6 SECONDS (9.0-12.0) Prothromb Time International Ratio 1.0 (0.9-1.1) Activated Partial Thromboplast Time 26.9 SECONDS (21.0-31.0) Partial Thromboplastin Ratio 1.0 Estimated Average Glucose 114 mg/dl Hemoglobin A1c 5.6 % (4.5-5.6) Magnesium Level 2.3 mg/dl (1.8-2.4) Total Creatine Kinase 201 U/L (26-192) Creatine Kinase MB 4.2 ng/ml (0.5-3.6) Creatine Kinase MB Ratio 2.1 (0-3.0) Ethyl Alcohol mg/dL < 3.0 mg/dl (0-3) Urine Color YELLOW Urine Appearance CLEAR (CLEAR) Urine pH 5.5 (4.5-7.5) Urine Specific [place] 1.022 (1.000-1.030) Urine Protein NEG (NEG) Urine Glucose (UA) NEG (NEG) Urine Ketones NEG (NEG) Urine Occult Blood NEG (NEG) Urine Nitrite NEG (NEG) Urine Bilirubin NEG (NEG) Urine Urobilinogen NEG (NEG) Urine Leukocyte Esterase SMALL (NEG) Urine WBC (Auto) 1-5 /hpf (0-5) Urine RBC (Auto) 0-4 /hpf (0-4) Urine Hyaline Casts (Auto) 0 /lpf (0-5) Urine Epithelial Cells (Auto) 10-20 /lpf (0-5) Urine Bacteria (Auto) NEG (NEG) Urine Opiates Screen NEG (NEG) Urine Methadone, Qualitative NEG (NEG) Urine Barbiturates NEG (NEG) Urine Phencyclidine (PCP) Level NEG (NEG) Ur Amphetamine/Methamphetamine NEG (NEG) MDMA (Ecstasy) Screen NEG (NEG) Urine Benzodiazepines Screen NEG (NEG) Urine Cocaine Metabolite NEG (NEG) Urine Marijuana (THC) NEG (NEG) Bedside Glucose 109 mg/dl (70-90) Test 04/16/17 03:22 04/16/17 05:50 Anion Gap 6.0 mmol/L (3-11) Est Creatinine Clear Calc Drug Dose 50.3 ml/min Estimated GFR () 65.1 Estimated GFR (Non- 56.1 BUN/Creatinine Ratio 13.8 (10-20) Calcium Level 8.7 mg/dl (8.5-10.1) Troponin I < 0.015 ng/ml (0-0.045) Triglycerides Level 80 mg/dl (0-150) Cholesterol Level 182 mg/dl (0-200) HDL Cholesterol 63 mg/dl LDL Cholesterol, Calculated 103 mg/dl VLDL Cholesterol, Calculated 16 mg/dl Cholesterol/HDL Ratio 2.9 White Blood Count 6.59 K/uL (4.8-10.8) Red Blood Count 4.28 M/uL (4.2-5.4) Hemoglobin 14.4 g/dL (12.0-16.0) Hematocrit 42.3 % (37-47) Mean Corpuscular Volume 98.8 fL (80-100) Mean Corpuscular Hemoglobin 33.6 pg (25-34) Mean Corpuscular Hemoglobin Concent 34.0 g/dl (32-36) Platelet Count 311 K/uL (130-400) Mean Platelet Volume 9.5 fL (7.4-10.4) Neutrophils (%) (Auto) 37.8 % Lymphocytes (%) (Auto) 48.1 % Monocytes (%) (Auto) 9.4 % Eosinophils (%) (Auto) 4.1 % Basophils (%) (Auto) 0.6 % Neutrophils # (Auto) 2.49 K/uL (1.4-6.5) Lymphocytes # (Auto) 3.17 K/uL (1.2-3.4) Monocytes # (Auto) 0.62 K/uL (0.11-0.59) Eosinophils # (Auto) 0.27 K/uL (0-0.5) Basophils # (Auto) 0.04 K/uL (0-0.2) RDW Standard Deviation 45.4 fL (36.4-46.3) RDW Coefficient of Variation 12.7 % (11.5-14.5) Immature Granulocyte % (Auto) 0.0 % Immature Granulocyte # (Auto) 0.00 K/uL (0.00-0.02) Imaging As noted above in history of present illness Impression This is a 76-year-old female with a stuttering course of left-sided weakness and numbness which has resolved consistent with a TIA. Likely small vessel etiology based on history. Stroke risk factors include tobacco use and very mild dyslipidemia. Patient appears to also drink more than 3 glasses of wine on a regular basis which could also place her at increased risk for hemorrhagic strokes. Plan Follow-up echocardiogram results. If echocardiogram cannot be done today, reasonably could be done tomorrow as an outpatient if possible. Agree with initiation of aspirin 81 mg daily and statin medication for stroke prevention. Discussed importance of these medications in reducing her stroke risk. Also discussed other risk factor modifications with the patient including smoking cessation. I encouraged regular cardiovascular exercise. Also discussed that excess alcohol consumption greater than 3 glasses a day for women can't increase her risk for hemorrhagic strokes. Follow-up PT/OT for discharge planning. (My understanding is that physical therapy has not found any physical therapy needs at this time.) Blood pressure recommendations while in hospital 175/95-150/80 Avoid hypotension and dehydration Stroke risk factor modifications and recommendations: Blood pressure recommendations for the first month post hospital discharge 150/ 90-130/80, and after that blood pressure recommendations 130/80-110/70 Total cholesterol goal 100- 200 and LDL goal less than 100 Hemoglobin A1c goal less than 7 (at goal) Encourage cardiovascular exercise at least 3 times a week for 30 minutes. Follow-up in neurology clinic in 1 month for post TIA hospital follow-up. Instructed the patient that if she has any new acute strokelike symptoms, should go to the emergency room immediately for evaluation. If there is any questions or concerns, feel free to call/page me.
--- NOTE | 2017-04-16 12:26 | ECHOCARDIOGRAM REPORT ---
*NOTICE TO RECEIVING CONSTITUTION PARTY AGENCY This information is strictly Confidential and protected under [place] law. [place] law prohibits you from making any further disclosure of this information unless further disclosure is expressly permitted by the written consent of the person to whom it pertains or is authorized by law. A general authorization for the release of medical or other information is not sufficient for this purpose. Hospital accepts no responsibility if the information is made available to any other person, INCLUDING THE PATIENT. Interpretation Summary * Name: MARTY MCKEON Study Date: 04/16/2017 10:26 AM BP: 128/80 mmHg * Patient Location: .2T\S\S230\S\2 HR: 61 * : 1940 (M/d/yy) Gender: Female Height: 68 in * Age: 76 yrs Ethnicity: CA Weight: 165 lb * Ordering Physician: Radha Bueno * Referring Physician: Self, Referred * Performed By: Pamela Aguilar RDCS * * Reason For Study: Stroke like symptoms * BSA: 1.9 m2 * -- Conclusions -- * 1. Normal LV size and wall thickness. * 2. Normal LV systolic function. LVEF 60-65%. No regional wall motion abnormalities. * 3. Normal RV size and function. * 4. Mild aortic regurgitation. * 5. Negative saline contrast study for interatrial shunt. No cardioembolic sources indentified. * 6. Normal estimated CVP. * 7. No prior studies for comparison. Procedure Details * A complete two-dimensional transthoracic echocardiogram was performed (2D, M-mode, Doppler and color flow Doppler). * A saline contrast injection was performed to assess for cardiac shunting. * The injection was performed through an intravenous line in the right arm. * The attending nurse who injected the saline contrast was Heath Mclain RN. * A total of 20 cc of agitated saline was given. Left Ventricle * The left ventricle is grossly normal size. * There is normal left ventricular wall thickness. * Ejection Fraction = 60-65%. * No regional wall motion abnormalities noted. Right Ventricle * The right ventricle is grossly normal size. * The right ventricular systolic function is normal as assessed by tricuspid annular plane systolic excursion (TAPSE) (normal >1.5 cm). Atria * The left atrial size is normal. * Right atrial size is normal. * Injection of contrast documented no interatrial shunt. Mitral Valve * The mitral valve is grossly normal. * Mitral stenosis is absent. * There is trace mitral regurgitation. Tricuspid Valve * The tricuspid valve is not well visualized, but is grossly normal. * Tricuspid stenosis is absent. * Significant tricuspid regurgitation is absent. Aortic Valve * The aortic valve opens well. * The aortic valve is trileaflet. * No hemodynamically significant valvular aortic stenosis. * Mild aortic regurgitation. Pulmonic Valve * The pulmonary valve is inadequately visualized, but the Doppler data is adequate for interpretation. * There is no pulmonic valvular stenosis. * Trace pulmonic valvular regurgitation. Great Vessels * The aortic root and proximal ascending aorta are normal sized. Pericardium/Pleural * There is no pericardial effusion. Great Vessels * Normal inferior vena cava size and collapsability with sniff indicates a normal right atrial pressure of 3 mmHg MMode 2D Measurements and Calculations IVSd 0.90 cm LVIDd 4.8 cm LVIDs 3.0 cm LVPWd 0.84 cm IVS/LVPW 1.1 FS 36.9 % EDV(Teich) 107.3 ml ESV(Teich) 35.8 ml EF(Teich) 66.7 % EDV(cubed) 110.2 ml ESV(cubed) 27.7 ml EF(cubed) 74.9 % LV mass(C)d 141.1 grams LV mass(C)dI 74.9 grams/m\S\2 SV(Teich) 71.5 ml SI(Teich) 38.0 ml/m\S\2 SV(cubed) 82.5 ml SI(cubed) 43.8 ml/m\S\2 Ao root diam 3.2 cm Ao root area 8.1 cm\S\2 ACS 1.9 cm LA dimension 2.6 cm asc Aorta Diam 3.5 cm LA/Ao 0.82 LVOT diam 2.0 cm LVOT area 3.0 cm\S\2 LVAd ap4 25.7 cm\S\2 LVLd ap4 6.9 cm EDV(MOD-sp4) 78.4 ml EDV(sp4-el) 80.8 ml LVAs ap4 14.3 cm\S\2 LVLs ap4 5.6 cm ESV(MOD-sp4) 31.9 ml ESV(sp4-el) 30.9 ml EF(MOD-sp4) 59.3 % EF(sp4-el) 61.7 % LVAd ap2 24.2 cm\S\2 LVLd ap2 6.4 cm EDV(MOD-sp2) 76.7 ml EDV(sp2-el) 77.3 ml LVAs ap2 14.1 cm\S\2 LVLs ap2 5.8 cm ESV(MOD-sp2) 31.3 ml ESV(sp2-el) 29.2 ml EF(MOD-sp2) 59.2 % EF(sp2-el) 62.2 % LVLd %diff -7.42 % EDV(MOD-bp) 80.7 ml LVLs %diff 2.9 % ESV(MOD-bp) 31.9 ml EF(MOD-bp) 60.5 % SV(MOD-sp4) 46.5 ml SI(MOD-sp4) 24.7 ml/m\S\2 SV(MOD-sp2) 45.4 ml SI(MOD-sp2) 24.1 ml/m\S\2 SV(MOD-bp) 48.8 ml SI(MOD-bp) 25.9 ml/m\S\2 SV(sp4-el) 49.9 ml SI(sp4-el) 26.5 ml/m\S\2 SV(sp2-el) 48.0 ml SI(sp2-el) 25.5 ml/m\S\2 Doppler Measurements and Calculations MV E max jocelin 56.3 cm/sec MV A max jocelin 74.7 cm/sec MV E/A 0.75 MV dec time 0.21 sec Ao V2 max 116.4 cm/sec Ao max PG 5.4 mmHg Ao max PG (full) 2.4 mmHg CHATA(V,A) 2.3 cm\S\2 CHAAT(V,D) 2.3 cm\S\2 AI max jocelin 275.1 cm/sec AI max PG 30.3 mmHg AI dec slope 103.8 cm/sec\S\2 AI P1/2t 775.9 msec LV V1 max PG 3.0 mmHg LV V1 max 86.3 cm/sec PA V2 max 67.9 cm/sec PA max PG 1.8 mmHg PA acc slope 503.5 cm/sec\S\2 PA acc time 0.10 sec PI max jocelin 111.5 cm/sec PI max PG 5.0 mmHg PI dec slope 129.8 cm/sec\S\2 PI P1/2t 251.7 msec TR max jocelin 165.3 cm/sec PA pr(Accel) 33.1 mmHg
[2017-04-16] MEDS ORDERED: ASPEC81 PO (12:38)
[2017-04-16] MEDS ORDERED: NICO14DI5 TD (12:38)
[2017-04-16] MEDS ORDERED: LPT40 PO (12:38)
--- NOTE | 2017-04-16 12:46 | Discharge Instructions ---
Discharge Instructions Date of Service Apr 16, 2017. Admission Reason for Admission: TIA Discharge Discharge Diagnosis / Problem: TIA Discharge Goals Goal(s): Improve disease control, Diagnostic testing, Therapeutic intervention Activity Recommendations Activity Limitations: resume your previous activity Lifting Limitations: none Exercise/Sports Limitations: none Shower/Bathe: no limitations Driving or Machine Use: no limitations . Instructions / Follow-Up Instructions / Follow-Up You were admitted with left sided weakness and diagnosed with a Transient Ischemic Attack (TIA). It is very important that you take a baby Aspirin 81 mg once daily, a new medicine to lower cholesterol called Lipitor (atorvastatin), and QUIT SMOKING. You should have follow up with your PCP within 1-2 weeks. The Neurologist, Dr. Marcia Winter, also would like to see you in her office in 1 month. Risk Factors for Stroke: You can reduce your chances of stroke by working with your medical provider to adopt a healthy lifestyle. Some specific ways to lower your chance of stroke are: * If you are a smoker, now is the time to stop smoking cigarettes * If you are diabetic, improve the control of your blood sugars * Avoid excessive amounts of alcohol * Control high blood pressure * Lose weight if you are overweight * Be sure to lead an active lifestyle * Eat a healthy diet low in salt, cholesterol and fat You should know about other risk factors for stroke that you are unable to control. These include: * Age 55 years or older * Male gender * Certain racial groups: , or / * Family History of Stroke, Mini stroke or Heart Attack * Sickle Cell Disease Follow Up: It is important for you to keep your follow up appointments with your medical provider. Current Hospital Diet Patient's current hospital diet: AHA Diet (Heart Healthy), Vegetarian Diet Discharge Diet Recommended Diet: AHA Diet (Heart Healthy), Vegetarian Diet Procedures Procedures Performed: MRI Brain MRA Head/Neck CTA head/neck Echocardiogram Chest xrya CT Head Pending Studies Studies pending at discharge: no Laboratory Results Hemoglobin A1c Test 04/15/17 10:00 Range/Units Estimated Average Glucose 114 mg/dl Hemoglobin A1c 5.6 4.5-5.6 % Lipid Panel Test 04/16/17 03:22 Range/Units Triglycerides Level 80 0-150 mg/dl Cholesterol Level 182 0-200 mg/dl HDL Cholesterol 63 mg/dl Cholesterol/HDL Ratio 2.9 LDL Cholesterol, Calculated 103 mg/dl Medical Emergencies . Who to Call and When: Medical Emergencies: Call 911 immediately if you experience any of the following warning signs and symptoms of Stroke: * Sudden numbness or weakness of the face, arm or leg, especially on one side of the body * Sudden confusion, trouble speaking or understanding * Sudden trouble seeing in one or both eyes * Sudden trouble walking, dizziness, loss of balance or coordination * Sudden severe headache with no cause Do not delay calling 911 if you experience any warning signs or symptoms of a stroke. Delay in seeking medical attention may affect what treatments can be given to you. . Non-Emergent Contact Non-Emergency issues call your: Primary Care Provider Call Non-Emergent contact if: you have any medication questions you have severe muscle aches or for any other acute concerns. . . "Provider Documentation" section prepared by Leslie Demarco. . Stroke Core Measures Reason no t-PA for Stroke: Treatment not indicated Reason no antithrom by day 2: Treatment provided - N/A Reason no antithrom at D/C: Treatment provided - N/A Reason no statin at D/C: Treatment provided - N/A Reason no anticoag w/a fib: Treatment not indicated VTE Core Measure Inpt VTE Proph given/why not?: SCD's
--- NOTE | 2017-04-16 12:59 | Discharge Summary ---
Discharge Summary Date of Service Apr 16, 2017. Discharge Summary Admission Date: Apr 15, 2017 at 13:32 Discharge Date: Apr 16, 2017 Discharge Disposition: Home Principal Diagnosis: TIA Problems/Secondary Diagnoses: Current smoker alcohol abuse Mild aortic insufficiency Marijuana abuse Acute sinusitis Procedures: MRI Brain MRA Head/Neck CTA Head/Neck CXR ECHO CT Head Consultations: Neurologist Medication Reconciliation New Medications: Aspirin (Aspirin EC Low Dose) 81 Mg Ectab 81 MG PO QAM for 30 Days Atorvastatin (Atorvastatin Calcium) 40 Mg Tab 40 MG PO QAM for 30 Days, #30 TAB Nicotine (Nicoderm Cq 14MG Patch) 14 Mg/24 Hr Dis 1 PATCH TD QAM PRN for nicotine withdrawal for 14 Days Can buy this OTC Continued Medications: Cefdinir (Omnicef) 125 Mg/5 Ml Susp 12 ML PO BID Vitamins C & E (Vitamin C) 1 Cap Cap 1 CAP PO DAILY Referrals At Discharge Follow up Referrals: Neurologist Referral - Within a Month with Marcia Winter D.O. Discharge Exam Pt feels completely normal. Tele with a brief 5 beat run of atrial tachycardia. Pt denies any weakness or numbness, no CP. She is committed to quitting smoking and EtOH. Review of Systems: Constitutional: No fever Eyes: No problem reported ENT: No problem reported Respiratory: No problem reported Cardiovascular: No problem reported Abdomen: No problem reported Musculoskeletal: No problem reported Genitourinary - Female: No problem reported Neurologic: No problem reported Psychiatric: + substance abuse (marijuana smoking) Endocrine: No problem reported Hematologic / Lymphatic: No problem reported Integumentary: No problem reported Physical Exam: General Appearance: WD/WN, no apparent distress Eyes: normal inspection, EOMI, sclerae normal ENT: hearing grossly normal Neck: trachea midline Respiratory/Chest: lungs clear, normal breath sounds, no respiratory distress, no accessory muscle use Cardiovascular: regular rate, rhythm, no edema, no gallop, no murmur Abdomen / GI: normal bowel sounds, non tender, soft, no organomegaly Extremities: normal inspection, no calf tenderness, normal capillary refill , no pedal edema, normal range of motion Neurologic/Psychiatric: cam maker II-XII nml as tested, no motor/sensory deficits , alert, normal mood/affect, oriented x 3 Skin: normal color, warm/dry, no rash Hospital Course This pt is a 76 y/o female who was admitted for observation on 04/15 for stuttering TIA after having a couple episodes of left sided weakness. Stuttering TIA: MRI Brain, MRA Head/Neck, CTA Head/Neck all normal, no acute CVA. Seen by Neuro and diagnosed with TIA. ECHO with mild AI, no thrombus. Telemetry with only 5 beats atrial tachycardia, not significant. ECG NSR, troponin negative x 3. Urine tox screen and UA, CBC, BMP within normal limits. -plan to continue aspirin 81mg (pt not taking [employer]) indefinitely for future CVA prevention -started atorvastatin 40mg daily, check LFTs and lipid panel in 4-6 weeks with PCP -Highly encouraged smoking cessation which she is committed to doing -f/u Neuro in 1 month -Neuro recommendations: "Stroke risk factor modifications and recommendations: Blood pressure recommendations for the first month post hospital discharge 150/90-130/80, and after that blood pressure recommendations 130/80-110/70 Total cholesterol goal 100- 200 and LDL goal less than 100 Hemoglobin A1c goal less than 7 (at goal) Encourage cardiovascular exercise at least 3 times a week for 30 minutes." Elevated BP on admission: no known dx of HTN BP at PCP yesterday was 124/84 Likely labile in the setting of acute stressor, monitored and normalized after admission Tobacco use: advised session Declines patch, ordered PRN Alcohol abuse: declines hx of withdrawal sx, however cannot clearly define her daily intake -pt committed to quitting EtOH use after discharge Acute Sinus infection: continue abx as prescribed prior to admission CT head neg for acute, however does have sinus thickening Discharged to home, no PT/OT needs identified Total Time Spent: Greater than 30 minutes This includes examination of the patient, discharge planning, medication reconciliation, and communication with other providers. Discharge Instructions Please refer to the electronic Patient Visit Report (Discharge Instructions) for additional information. Follow-Up Neuro in 1 month PCP within 1-2 weeks Additional Copies To Ange Cohen D.O.; Marcia Winter D.O.
--- NOTE | 2017-04-16 13:27 | Pharmacy Progress Note ---
Pharmacist Stroke Counseling Date of Service Apr 16, 2017. Scope Pharmacy has been consulted to provide medication discharge counseling for this patient admitted with ischemic stroke/hemorrhagic stroke/ transient ischemic attack as per the Pharmacist Discharge Counseling for Stroke Patients Protocol. Medications on Discharge New Medications: Aspirin (Aspirin EC Low Dose) 81 Mg Ectab 81 MG PO QAM for 30 Days Atorvastatin (Atorvastatin Calcium) 40 Mg Tab 40 MG PO QAM for 30 Days, #30 TAB Nicotine (Nicoderm Cq 14MG Patch) 14 Mg/24 Hr Dis 1 PATCH TD QAM PRN for nicotine withdrawal for 14 Days Can buy this OTC Continued Medications: Cefdinir (Omnicef) 125 Mg/5 Ml Susp 12 ML PO BID Vitamins C & E (Vitamin C) 1 Cap Cap 1 CAP PO DAILY Action The above medications, specifically ones for stroke treatment/prophylaxis, have been reviewed in detail with the patient prior to discharge. This includes indication, common adverse reactions, drug interactions, and medication administration. Medication counseling has been employed using the teach-back method to ensure understanding. Patient plans to buy aspirin as a chewable and put atorvastatin in applesauce to be able to swallow. Outcome The patient has demonstrated understanding of the medications. Please note, they are aware that the pharmacist will call them within 72 hours post-discharge to confirm that the appropriate medications are being taken and answer any further medication related questions the patient might have at that time. Pt aware we will call on Thursday d/t Thanksving holiday and weekend. Contact information Individual to be contacted: PATIENT Phone number: [phone] Best time to call: anytime Thank you for allowing pharmacy to be involved in the care of this patient. Please call [phone] or [phone] with any additional questions
--- NOTE | 2017-04-21 16:09 | Pharmacy Progress Note ---
Pharmacist Post D/C Phone Note April 21, 2017 The patient and/or patient car sales representative(s) were unable to be reached for a follow-up phone call within the 72 hour time frame. Attempted to reach patient via telephone on 04.20 and 04/21. Each phone attempt a message was left for the patient to call when available. Discharge counseling pharmacist contact information has already been provided to the patient should questions arise. Thank you for allowing us to be involved in the care of this patient.
== END 2017-04-16 13:21 | disposition home or self-care (01) ==
LOC: EDBD 09:30 → C.EDA 09:33 → C.2T 13:32 → EDBEDREQ 13:38 → ENRESERV 13:45
PROVIDERS: ADMIT Family Medicine; ATTEND Family Medicine
DX: G45.9 Transient cerebral ischemic attack, unspecified (principal); F17.200 Nicotine dependence, unspecified, uncomplicated; F10.10 Alcohol abuse, uncomplicated; J01.90 Acute sinusitis, unspecified; E78.5 Hyperlipidemia, unspecified; Z79.899 Other long term (current) drug therapy; Z79.82 Long term (current) use of aspirin; Z88.1 Allergy status to other antibiotic agents; Z88.0 Allergy status to penicillin; Z80.9 Family history of malignant neoplasm, unspecified; Z82.3 Family history of stroke

== ENCOUNTER 2021-04-08 15:17 | Inpatient (IN) ==
[2021-04-08 17:39] LABS: Basophils # (auto) 0.06 K/uL (0-0.2); Basophils % (auto) 0.7 %; Eosinophils # (auto) 0.24 K/uL (0-0.5); Eosinophils % (auto) 2.6 %; Hematocrit (blood only) 46.1 % (37-47); Hemoglobin 15.6 g/dL (12.0-16.0); Immature Granulocytes # (auto) 0.01 K/uL (0.00-0.02); Immature Granulocytes % (auto) 0.1 %; Lymphocytes # (auto) 2.26 K/uL (1.2-3.4); Lymphocytes % (auto) 24.5 %; Mean Corpuscular Hemoglobin 29.7 pg (25-34); Mean Corpuscular Hgb Conc 33.8 g/dL (32-36); Mean Corpuscular Volume 87.8 fL (80-100); Mean Platelet Volume 9.6 fL (7.4-10.4); Monocytes # (auto) 0.77 K/uL (0.11-0.59); Monocytes % (auto) 8.4 %; Neutrophils # (auto) 5.88 K/uL (1.4-6.5); Neutrophils % (auto) 63.7 %; Platelet Count 431 K/uL (130-400); RDW Coefficient of Variation 14.2 % (11.5-14.5); RDW Standard Deviation 45.8 fL (36.4-46.3); Red Blood Count 5.25 M/uL (4.2-5.4); White Blood Count 9.22 K/uL (4.8-10.8)
[2021-04-08 17:58] LABS: Albumin Level 3.6 gm/dl (3.4-5.0); BUN Creatinine Ratio 7.8 (10-20); Calcium 10.5 mg/dl (8.5-10.1); Creatinine Clr Calc Pharmacy 44.1 ml/min; Est GFR (African American) 56.9 ml/min; Est GFR (Non-African American) 49.1 ml/min
[2021-04-08 18:03] LABS: Albumin Globulin Ratio 0.7 (0.9-2); Bilirubin,Total 3.6 mg/dl (0.2-1); Total Protein 8.6 gm/dl (6.4-8.2)
--- NOTE | 2021-04-08 19:54 | History & Physical Report ---
Date of Service April 08, 2021 Assessment & Plan (1) Abdominal pain: Plan: Abdominal pain -Elevated bilirubin 3.6, alkaline phosphatase 185- suggestive of biliary obstruction/pathology -CTAP: gallbladder distension with extra/intrahepatic biliary ductal dilation, narrowing at CBD without stone visualized -Low suspicion for acute cholangitis/cholecystitis given afebrile, normal CBC, hemodynamic stability- holding off on antibiotics for now. 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 GI consulted, Possible ERCP will keep patient NPO at midnight -Toradol PRN for pain Liver metastasis with history of breast cancer -R breast lumpectomy 10+ years ago -CTAP: multifocal hepatic metastases new from 01/2020 CT -Will need staging CT Chest this admission -Oncology consulted -INR level ordered, calculate MELD score once obtained Transaminitis -AST/ALT 198/173, likely due to liver metastasis, low suspicion for acute liver failure at this time -Trend LFTs History of TIA -Holding home aspirin for ERCP tomorrow Anxiety -Not on any home medications (2) Liver metastases: (3) Transaminitis: (4) History of right breast cancer: (5) Transient ischemic attack (TIA): History of Present Illness Chief Complaint: Abdominal pain Primary Care Provider: Ange Cohen, DO 80 yo F with PMH R breast cancer s/p lumpectomy with radiation 10+ years ago, chronic neuropathic pain, TIA, previous alcohol use disorder presenting with abdominal pain. Over past several weeks pt has had mild-moderate generalized abdominal pain, bloating, nausea, vomiting, decreased appetite and feelings of indigestion that responded minimally to antacids. Also some minor RUQ pain. 2 days prior pt experienced severe RUQ pain at night and called [facility]'s on-call nursing service who assessed her and recommended going to ED if symptoms continued. Pt's pain slightly decreased over next day as she was taking Tylenol every 6 hours and saw PCP Ange Cohen for appt at clinic earlier today. Pt sent to ED for emergency CT scan by PCP. Denies fevers, chills, fatigue, night sweats, diarrhea, yellowing of skin over this time. Did not have any vomiting over past few days. On evaluation, pt reports mild discomfort and feeling bloated but explicitly denies pain. Denies any associated symptoms at present. Allergies Allergy/AdvReac Type Severity Reaction Status Date / Time amoxicillin Allergy Unknown . Verified 01/29/20 13:54 doxycycline Allergy Unknown . Verified 01/29/20 13:54 tetracycline Allergy Unknown Verified 01/29/20 13:54 prednisone AdvReac Mild LOSES HER Verified 01/29/20 13:54 TASTE Home Medications Medication Instructions Recorded Confirmed Type aspirin 81 mg tablet,delayed 81 mg PO QAM 07/02/18 01/29/20 History release ascorbic acid 1,000 1 ea PO QAM 01/26/20 01/29/20 History nv-yhgfgbejklmi-zhdsyvqv powder effervescent pack (Emergen-C) multivitamin 2 tab PO QAM 01/26/20 01/29/20 History hydrocodone 5 mg-acetaminophen 325 1 tab PO Q6H PRN #10 tab 01/29/20 Rx mg tablet ([place]) Past Med/Surg History Medical History (Updated 04/09/21 @ 00:16 by Alexsandra Moran DO) Acute anxiety Alcohol abuse Chronic back pain Chronic neuropathic pain Herniated disc History of right breast cancer S/P LUMPECTOMY, RADIATION Hyperlipidemia Marijuana abuse Osteoarthritis Spinal stenosis Severe at L4-5 Tinnitus Transient ischemic attack (TIA) X 2 (03/2017 & 09/2017) Surgical History History of breast biopsy History of colonoscopy History of dilatation and curettage Hx of lumpectomy RT BREAST Social History Smoking Status: Never smoker Tobacco Type: Cigarettes Second Hand Exposure: No; Hx Alcohol Use: Yes Alcohol type: wine Hx Substance Use: Yes Last Used Substance Other:: 1 WEEK AGO Preferred Language: Bangladeshi Communication Ability: Effective Head Banquet Waitress Required: No Beliefs That Will Affect Care: None Current Living Situation: Alone Current Living Situation Comment: [facility]ATE Other Information That Helps Us Care for You: Yes Feels Safe at Home: Yes Safety Concerns: Feels Safe At This Time Assistive Devices: Contacts and Glasses Review of Systems Review of Systems: Per HPI- +bloating, RUQ abdominal pain Physical Exam Physical Exam: General: well-appearing, laying in bed in no acute distress HEENT: anicteric sclerae, moist mucous membranes, no lymphadenopathy CV: RRR, normal S1 and S2, no murmurs noted Resp: CTAB, no accessory muscle use, unlabored respirations Abdomen: moderate tenderness of RUQ, negative Huang's sign, slight distension, no fluid wave or tympany on percussion, no rebound or guarding, no hepatomegaly Neuro: AOx3, no gross focal motor deficits, no sensory deficits Psych: +anxious, sardonic affect Skin: no jaundice or rashes, warm and dry Extremities: no peripheral edema, cap refill <2s, +2 distal pulses Breast exam per Dr. Moran: firm immobile mass on right lower outer quadrant of R breast Results & Data Results & Data ([facility]) Vital Signs (Past 12 Hours) Vital Signs Temp Pulse Pulse Resp BP BP Pulse Ox 04/08/21 19:15 93 H 20 162/92 H 97 04/08/21 15:51 36.6 C 97 H 18 104/85 95 Laboratory Results Laboratory Results WBC 9.22 K/uL (4.8-10.8) 04/08/21 17:32 RBC 5.25 M/uL (4.2-5.4) 04/08/21 17:32 Hgb 15.6 g/dL (12.0-16.0) 04/08/21 17:32 Hct 46.1 % (37-47) 04/08/21 17:32 MCV 87.8 fL (80-100) 04/08/21 17:32 MCH 29.7 pg (25-34) 04/08/21 17:32 MCHC 33.8 g/dL (32-36) 04/08/21 17:32 RDW Std Deviation 45.8 fL (36.4-46.3) 04/08/21 17:32 RDW Coeff of Marques 14.2 % (11.5-14.5) 04/08/21 17:32 Plt Count 431 K/uL (130-400) H 04/08/21 17:32 MPV 9.6 fL (7.4-10.4) 04/08/21 17:32 Immature Gran % (Auto) 0.1 % 04/08/21 17:32 Neut % (Auto) 63.7 % 04/08/21 17:32 Lymph % (Auto) 24.5 % 04/08/21 17:32 [place] % (Auto) 8.4 % 04/08/21 17:32 Eos % (Auto) 2.6 % 04/08/21 17:32 Baso % (Auto) 0.7 % 04/08/21 17:32 Neut # (Auto) 5.88 K/uL (1.4-6.5) 04/08/21 17:32 Lymph # (Auto) 2.26 K/uL (1.2-3.4) 04/08/21 17:32 [place] # (Auto) 0.77 K/uL (0.11-0.59) H 04/08/21 17:32 Eos # (Auto) 0.24 K/uL (0-0.5) 04/08/21 17:32 Baso # (Auto) 0.06 K/uL (0-0.2) 04/08/21 17:32 Immature Gran # (Auto) 0.01 K/uL (0.00-0.02) 04/08/21 17:32 Sodium 137 mmol/L (136-145) 04/08/21 17:32 Potassium 4.0 mmol/L (3.5-5.1) 04/08/21 17:32 Chloride 105 mmol/L (98-107) 04/08/21 17:32 Carbon Dioxide 25 mmol/L (21-32) 04/08/21 17:32 Anion Gap 7.0 (3-11) 04/08/21 17:32 BUN 8 mg/dl (7-18) 04/08/21 17:32 Creatinine 1.08 mg/dl (0.6-1.2) 04/08/21 17:32 Est Cr Clr Drug Dosing 44.1 ml/min 04/08/21 17:32 Est GFR ( Amer) 56.9 ml/min 04/08/21 17:32 Est GFR (Non-Af Amer) 49.1 ml/min 04/08/21 17:32 BUN/Creatinine Ratio 7.8 (10-20) L 04/08/21 17:32 Glucose 96 mg/dl (70-99) 04/08/21 17:32 Calcium 10.5 mg/dl (8.5-10.1) H 04/08/21 17:32 Total Bilirubin 3.6 mg/dl (0.2-1) H 04/08/21 17:32 AST 198 U/L (15-37) H 04/08/21 17:32 ALT 173 U/L (12-78) H 04/08/21 17:32 Alkaline Phosphatase 185 U/L (45-117) H 04/08/21 17:32 Total Protein 8.6 gm/dl (6.4-8.2) H 04/08/21 17:32 Albumin 3.6 gm/dl (3.4-5.0) 04/08/21 17:32 Globulin 5.0 gm/dl (2.5-4.0) H 04/08/21 17:32 Albumin/Globulin Ratio 0.7 (0.9-2) L 04/08/21 17:32 COVID-19 Eval Order Covid19 at [facility] 04/08/21 18:42 SARS-CoV-2 (PCR) NEGATIVE (Negative) 04/08/21 18:42 Laboratory Results WBC 9.22 K/uL (4.8-10.8) 04/08/21 17:32 RBC 5.25 M/uL (4.2-5.4) 04/08/21 17:32 Hgb 15.6 g/dL (12.0-16.0) 04/08/21 17:32 Hct 46.1 % (37-47) 04/08/21 17:32 MCV 87.8 fL (80-100) 04/08/21 17:32 MCH 29.7 pg (25-34) 04/08/21 17:32 MCHC 33.8 g/dL (32-36) ABDOMEN AND PELVIS CT WITH IV CONTRAST CT DOSE: 692.73 mGycm HISTORY: Acute severe generalized abdominal pain SEVERE ABD PAIN, R/O MASS TECHNIQUE: Multiaxial CT images of the abdomen and pelvis were performed following the IV administration of 98 cc of Optiray, A dose lowering technique was utilized adhering to the principles of ALARA. COMPARISON STUDY: CT abdomen and pelvis 01/31/2020 and 01/26/2020. FINDINGS: Imaged inferior cardiac chambers are mildly enlarged. Mild subsegmental bibasilar atelectasis. No pneumatosis or pneumoperitoneum. Unremarkable spleen, pancreas and adrenal glands. Moderately distended gallbladder without associated wall thickening. There is intrahepatic and extrahepatic biliary ductal dilation with abrupt narrowing of the common bile duct on image 155 series 3. No obstructing lesion or definite stone identified. The common bile duct measures up to 1.5 cm transversely. No pancreatic ductal dilation. Multifocal confluent hepatic metastasis are new from prior. The main portal vein appears patent. Unremarkable kidneys. No hydronephrosis. Unremarkable urinary bladder with mild wall thickening and partial distention. 2.0 cm calcification involving the right fundal aspect of a calcified leiomyoma. No adnexal mass lesions. Atherosclerosis of the aorta without aneurysm. There is no definite adenopathy identified. No bowel obstruction or bowel wall thickening. Colonic diverticulosis. Moderate fecal retention. Normal appendix. Air and fluid-filled nondilated loops of small bowel likely physiologic. Unremarkable soft tissues. The previously described mass of the right breast is not imaged on this study. Healed chronic left-sided rib fractures. Severe multilevel facet arthrosis. No acute fracture, subluxation or suspicious bone lesion identified. IMPRESSION: 1. Multifocal hepatic metastasis are new from the 01/29/2020 exam. This may be secondary to the right breast mass described on the 01/29/[address] Mammographic workup recommended if not already conducted. 2. Moderately distended gallbladder with intrahepatic and extrahepatic biliary ductal dilation. There is abrupt narrowing at the level of the mid common bile duct without obstructing stone or lesion identified. This could be correlated with ERCP. 3. No bowel obstruction or bowel wall thickening. 4. Colonic diverticulosis. 5. Additional findings as above. Supervising Physician Co-Signing Physician Notes Patient seen and examined, chart reviewed, case discussed with Dr. Obrien and I agree with his assessment and plan as documented above. In brief, patient is a 80yo female with history of infiltrating ductal carcinoma of the right breast diagnosed in March 2008. ER+, VT+ and HER2/eduardo NEGATIVE. She had a right breast lumpectomy with sentinel node biopsy which revealed well differentiated infiltrating ductal carcinoma. One central node showed focal histocytosis. Patient completed XRT. She had been doing well. Reports noting a firm mass of her right breast "a while ago". She was seen by her PCP today for worsening abdominal pain and fullness. CT was ordered, findings suggestive of metastases to liver Labs as above with cholestatic pattern - elevated AP and Tbili On exam she is afebrile, HD stable, nontoxic in appearance Firm, fixed mass in right breast palpated RUQ tenderness Labs and images reviewed INR=1.1 Acetaminophen level - send out due to icteric specimen Lipase = 280 MRCP - per STAT rad - multiple hepatic masses, consistent with metastatic disease. Medial left lobe mass projects towards the chiki hepatis compressing and obstructing the upper common bile duct. Resulting in marked biliary dilation. Assessment/Plan - 80yo female with remote history of infiltrating ductal carcinoma of the right breast (03/2008) ER+, VT+, HER2/eduardo NEG s/p lumpectomy, XRT presenting with abdominal discomfort. Found with multiple lesions of the liver most consistent with hepatic metastases resulting in biliary obstruction -Admit to medical -GI consultation for possible ERCP with stent placement -Will keep patient NPO -Oncology consultation appreciated -Remainder of plan as above Resident Activity Tracking Resident Involvement: Resident Care Provided Care Provided: Adult Hospital Medicine (1) Abdominal pain Abdominal location: right upper quadrant Qualified Code(s): R10.11 - Right upper quadrant pain
--- NOTE | 2021-04-08 20:17 | Emergency Department Note ---
Impression & Plan Total bilirubin, elevated, Abdominal pain, Transaminitis, Liver metastases, Common bile duct (CBD) stricture, Nausea ED Provider Note Provider: Dustin Chery MD DATE OF SERVICE: 04/08/2021 CHIEF COMPLAINT: Abdominal pain, CT abnormalities HISTORY OF PRESENT ILLNESS: Patient is a 80-year-old female history of right- sided breast cancer lumpectomy over a decade ago presenting here today referred after an abnormal outpatient CT. Patient evidently reports over the past several weeks to months has been experiencing some nausea and vomiting with eating and decreased intake as well as some pain in the right upper back and right upper abdominal region. Given worsening she saw her doctor's office this morning and an outpatient CT scan. CT was concerning for new finding of liver metastasis as well as some gallbladder enlargement and possible CBD stenosis. Radiology report questions possible metastatic disease. Patient states he received some pain medicine earlier and the pain is not too bad now after shot at the office. Patient denies severe nausea at this time but states she has not been eating well. States she is had some bump an issue around her right breast for a while but had bad experiences before and has not followed up on this and now is angry at herself as this is likely causing her issue today. REVIEW OF SYSTEMS: A total of 10 review of systems was obtained and negative except as stated above in the HPI. PAST MEDICAL HISTORY: As noted above MEDICATIONS: Reviewed home medications SOCIAL HISTORY: Former smoker, lives at home PHYSICAL EXAM: GENERAL: alert and oriented in no acute distress on stretcher Head: normocephalic and atraumatic EYES: No injection, discharge or icterus. NECK: Trachea midline. LUNGS: Airway patent. No retractions no tachypnea HEART: Regular rate and rhythm. ABDOMEN: Soft minimal right upper quadrant tenderness. No guarding or rebound. Not peritoneal. SKIN: Acyanotic, warm, dry, without rashes EXTREMITIES: Without swelling, tenderness or deformity NEUROLOGICAL: No focal deficits. No aphasia. No facial droop or slurred speech. Ambulatory. EK bpm normal sinus rhythm with sinus arrhythmia. QTc 429. No acute ST segment elevation or depression. Patient's laboratory studies and imaging reviewed. Differential includes Infection, dehydration, metabolic abnormality, hypo/hyperglycemia, electrolyte disturbance, anemia, hypoxia, cardiac sources, intracerebral event, toxicologic, neurologic, as well as other pathologies. IMPRESSION/MEDICAL DECISION MAKING: Patient presents abnormal CT finding. Records reviewed. Blood work shows an elevated bilirubin LFTs concerning for possible CBD either stenosis or de veloping occlusion from likely metastatic liver disease. Question of this may be result of prior breast cancer. Patient not severely anemic. Not peritoneal and do not believe requires emergent surgery. Do not believe this is cholangitis or infected at this point. Given the elevated bilirubin and CBD findings feel that further observation here and GI consultation the morning for possible ERCP and biopsy/stent placement may be very beneficial for the patient. Patient was in agreement with this. We did discuss at length the findings and likely oncological process behind this. DIAGNOSIS: Elevated bilirubin, liver metastasis, common bile duct stricture DISPOSITION: Hospitalist will evaluate Patient was agreeable with this plan. Past Med/Surg History Medical History (Updated 04/08/21 @ 20:17 by Dustin Chery M.D.) Abdominal pain Acute anxiety Alcohol abuse Chronic back pain Chronic neuropathic pain Herniated disc History of right breast cancer S/P LUMPECTOMY, RADIATION Hyperlipidemia Hyperlipidemia Marijuana abuse Osteoarthritis Spinal stenosis Severe at L4-5 Tinnitus Transient ischemic attack (TIA) X 2 (03/2017 & 09/2017) Surgical History History of breast biopsy History of colonoscopy History of dilatation and curettage Hx of lumpectomy RT BREAST Social History Smoking Status: Never smoker Tobacco Type: Cigarettes Second Hand Exposure: No; Hx Alcohol Use: Yes Alcohol type: wine Hx Substance Use: Yes Last Used Substance Other:: 1 WEEK AGO Preferred Language: Jordanian Communication Ability: Effective Photo Offset Printer Required: No Beliefs That Will Affect Care: None Current Living Situation Comment: [facility] Feels Safe at Home: Yes Assistive Devices: Contacts Allergies Allergies Allergy/AdvReac Type Severity Reaction Status Date / Time amoxicillin Allergy Unknown . Verified 01/29/20 13:54 doxycycline Allergy Unknown . Verified 01/29/20 13:54 tetracycline Allergy Unknown Verified 01/29/20 13:54 prednisone AdvReac Mild LOSES HER Verified 01/29/20 13:54 TASTE Home Meds Home Medications Medication Instructions Recorded Confirmed aspirin 81 mg tablet,delayed 81 mg PO QAM 07/02/18 01/29/20 release ascorbic acid 1,000 1 ea PO QAM 01/26/20 01/29/20 dk-prtcpiuzrvct-toezszmu powder effervescent pack (Emergen-C) multivitamin 2 tab PO QAM 01/26/20 01/29/20 Previous Rx's Medication Instructions Recorded hydrocodone 5 mg-acetaminophen 325 1 tab PO Q6H PRN #10 tab 01/29/20 mg tablet ([place]) Results & Data (ED) Vital Signs Vital Signs - 24 hr 04/08/21 15:51 04/08/21 19:15 Temperature 36.6 C Temperature Source Temporal Artery Scan Pulse Rate 97 H Pulse Rate [Right Finger] 93 H Respiratory Rate 18 20 Respiratory Effort / Characteristics Non-Labored Respiratory Depth Normal Blood Pressure 104/85 Blood Pressure [Right Arm] 162/92 H Blood Pressure Mean 91 Blood Pressure Mean [Right Arm] 115 Blood Pressure Position [Right Arm] Sitting Pulse Oximetry 95 97 Oxygen Delivery Method Room Air Sepsis Recent Fever Within 48 Hours No Sepsis New/Unexplained Change in Mental Status No Sepsis Action Taken by Nursing No Action Required Laboratory Data Result diagrams: 04/08/21 17:32 04/08/21 17:32 Lab Results 04/08/21 04/08/21 04/08/21 Range/Units 17:32 17:32 17:32 WBC 9.22 (4.8-10.8) K/uL RBC 5.25 (4.2-5.4) M/uL Hgb 15.6 (12.0-16.0) g/dL Hct 46.1 (37-47) % MCV 87.8 (80-100) fL MCH 29.7 (25-34) pg MCHC 33.8 (32-36) g/dL RDW Std Deviation 45.8 (36.4-46.3) fL RDW Coeff of Marques 14.2 (11.5-14.5) % Plt Count 431 H (130-400) K/uL MPV 9.6 (7.4-10.4) fL Immature Gran % (Auto) 0.1 % Neut % (Auto) 63.7 % Lymph % (Auto) 24.5 % [place] % (Auto) 8.4 % Eos % (Auto) 2.6 % Baso % (Auto) 0.7 % Neut # (Auto) 5.88 (1.4-6.5) K/uL Lymph # (Auto) 2.26 (1.2-3.4) K/uL [place] # (Auto) 0.77 H (0.11-0.59) K/uL Eos # (Auto) 0.24 (0-0.5) K/uL Baso # (Auto) 0.06 (0-0.2) K/uL Immature Gran # (Auto) 0.01 (0.00-0.02) K/uL Sodium 137 (136-145) mmol/L Potassium 4.0 (3.5-5.1) mmol/L Chloride 105 (98-107) mmol/L Carbon Dioxide 25 (21-32) mmol/L Anion Gap 7.0 (3-11) BUN 8 (7-18) mg/dl Creatinine 1.08 (0.6-1.2) mg/dl Est Cr Clr Drug Dosing 44.1 ml/min Est GFR ( Amer) 56.9 ml/min Est GFR (Non-Af Amer) 49.1 ml/min BUN/Creatinine Ratio 7.8 L (10-20) Glucose 96 (70-99) mg/dl Calcium 10.5 H (8.5-10.1) mg/dl Total Bilirubin 3.6 H (0.2-1) mg/dl AST 198 H (15-37) U/L ALT 173 H (12-78) U/L Alkaline Phosphatase 185 H (45-117) U/L Total Protein 8.6 H (6.4-8.2) gm/dl Albumin 3.6 (3.4-5.0) gm/dl Globulin 5.0 H (2.5-4.0) gm/dl Albumin/Globulin Ratio 0.7 L (0.9-2) Lipase 280 (73-393) U/L COVID-19 Eval Order SARS-CoV-2 (PCR) (Negative) 04/08/21 04/08/21 Range/Units 18:42 18:42 WBC (4.8-10.8) K/uL RBC (4.2-5.4) M/uL Hgb (12.0-16.0) g/dL Hct (37-47) % MCV (80-100) fL MCH (25-34) pg MCHC (32-36) g/dL RDW Std Deviation (36.4-46.3) fL RDW Coeff of Marques (11.5-14.5) % Plt Count (130-400) K/uL MPV (7.4-10.4) fL Immature Gran % (Auto) % Neut % (Auto) % Lymph % (Auto) % [place] % (Auto) % Eos % (Auto) % Baso % (Auto) % Neut # (Auto) (1.4-6.5) K/uL Lymph # (Auto) (1.2-3.4) K/uL [place] # (Auto) (0.11-0.59) K/uL Eos # (Auto) (0-0.5) K/uL Baso # (Auto) (0-0.2) K/uL Immature Gran # (Auto) (0.00-0.02) K/uL Sodium (136-145) mmol/L Potassium (3.5-5.1) mmol/L Chloride (98-107) mmol/L Carbon Dioxide (21-32) mmol/L Anion Gap (3-11) BUN (7-18) mg/dl Creatinine (0.6-1.2) mg/dl Est Cr Clr Drug Dosing ml/min Est GFR ( Amer) ml/min Est GFR (Non-Af Amer) ml/min BUN/Creatinine Ratio (10-20) Glucose (70-99) mg/dl Calcium (8.5-10.1) mg/dl Total Bilirubin (0.2-1) mg/dl AST (15-37) U/L ALT (12-78) U/L Alkaline Phosphatase (45-117) U/L Total Protein (6.4-8.2) gm/dl Albumin (3.4-5.0) gm/dl Globulin (2.5-4.0) gm/dl Albumin/Globulin Ratio (0.9-2) Lipase (73-393) U/L COVID-19 Eval Order Covid19 at [facility] SARS-CoV-2 (PCR) NEGATIVE (Negative) Administered Medications Lorazepam (Ativan) 1 mg in 2 mls @ 2 mls/min IV PRN ONE Stop: 04/09/21 21:16 Last Admin: 04/08/21 21:48 Dose: 2 mls/min Documented by: [id number] Discharge Plan Visit Data Chief Complaint: Abnormal Labs/Diagnostic Testing Stated Complaint: POSITIVE CT SCAN ED Provider: Dustin Chery Discharge Problem: Total bilirubin, elevated, Abdominal pain, Transaminitis, Liver metastases, Common bile duct (CBD) stricture, Nausea Patient Disposition: Admitted As Inpatient Discharge Instructions Interventions: ED Discharge Assessment Last Done: 04/08/21 22:09 Discharge Problem: Abdominal pain Qualifiers: Abdominal location: right upper quadrant Qualified Code(s): R10.11 - Right upper quadrant pain
[2021-04-08] MEDS ORDERED: KETOROLAC TROMETHAMINE 15 MG/ML VIAL IV PRN (20:24)
[2021-04-08 21:32] LABS: INR 1.1 (0.9-1.1); Prothrombin Time 11.2 Seconds (9.0-12.0)
[2021-04-08] MEDS ORDERED: LORazepam 2 MG/4 ML VIAL ONE (21:40)
[2021-04-09] MEDS ORDERED: POLYETHYLENE (MIRALAX) 17 GM PACK PO PRN (00:13)
[2021-04-09] MEDS ORDERED: ONDANSETRON INJ 2 MG/ML 2 ML VIAL IV PRN ×2 (00:13→15:37)
[2021-04-09] MEDS ORDERED: ZOLPIDEM TARTRATE 5 MG TAB PO PRN (00:13)
[2021-04-09] MEDS: MAGNESIUM HYDROXIDE SUSP 30 ML UDC PO PRN ×2 (00:46→23:41)
--- NOTE | 2021-04-09 01:34 | Billing Data ---
Date of Service April 08, 2021 Coding Level of Care Code 27667 Initial Inpt Care Lvl 2
[2021-04-09 03:05] LABS: Appearance Urine Clear (Clear); Bacteria Urine Automated Negative (Negative); Blood Urine Negative (Negative); Color Urine Dark Yellow; Epithelial Cell Urine Auto >30 /lpf (0-5); Glucose Urine UA Negative (Negative); Ketones Urine Trace (Negative); Leukocyte Esterase Urine 1+ (Negative); Nitrite Urine Positive (Negative); Protein Urine 1+ (Negative); Specific Gravity Urine > 1.045 (1.000-1.030); Urobilinogen Urine Negative (Negative)
[2021-04-09 03:13] LABS: Bilirubin Urine 2+ (Negative)
[2021-04-09 03:23] LABS: Cast Urine Automated 0 /lpf (0-5)
--- NOTE | 2021-04-09 07:43 | Electrocardiogram Report ---
Test Reason : Blood Pressure : / mmHG Vent. Rate : 072 BPM Atrial Rate : 072 BPM P-R Int : 174 ms QRS Dur : 088 ms QT Int : 392 ms P-R-T Axes : 062 -28 009 degrees QTc Int : 429 ms Poor data quality, interpretation may be adversely affected Normal sinus rhythm with sinus arrhythmia Minimal voltage criteria for LVH, may be normal variant Nonspecific T wave abnormality Anterior leads Abnormal ECG When compared with ECG of 25-OCT-2017 21:02, QRS axis Shifted left Nonspecific T wave abnormality now evident in Anterior leads Confirmed by Winston Feldman ([id number]) on 04/09/2021 7:43:35 AM Referred By: Ange Cohen Confirmed By:Winston Feldman
[2021-04-09] MEDS ORDERED: INFLUENZA VACCINE HIGH DOSE PF 65+ 0.7 ML SYR IM ONE (08:00)
--- NOTE | 2021-04-09 08:38 | Gastrointestinal Consultation ---
Date of Consultation April 09, 2021 Assessment & Plan (1) Elevated LFTs: Elevated LFTs and abnormal imaging most likely secondary to metastatic liver lesions encroaching the bile ducts. ERCP today by Dr. Morales with tissue sampling if possible. ERCP was explained in detail. Patient agrees with going forward with the procedure. Keep n.p.o. until after the procedure. Further recommendations to follow procedure. (2) Bile duct obstruction: Supervising Physician Co-Signing Physician Notes Attg add: I interviewed and examined pt, reviewed chart and labs. Pt with remote h/o breast cancer now with breast mass, and imaging which showed liver mass, glenys dil, labs show increased LFT's. No cholangitis by exam/labs. Plan ERCP, consider EUS of liver bx if amenable. History of Present Illness Reason for Consultation: Potential biliary obstruction requiring ERCP Requesting Physician: Dr. Ry Cohen Attending Physician: José Miguel Johnson History of Present Illness Ms. Alexsandra Griffin is a 80 yr old female pt of Dr. Ange Cohen with a hx infiltrating ductal carcinoma of the right breast (2007, S/P lumpectomy, XRT) who has had recent abdominal pain. OP CT yesterday with suggestion of liver mets and possible bile duct obstruction, though w/o specific lesion, the bile duct is dilated to 1.5 cm and there is an abrupt cut off. MRCP is pending. On arrival, LFTs are elevated:T Bili 3.6, AST 198, ALT 173, Alk Phos 175. Pt tells us that she has had abdominal bloating times approximately 2 weeks. Believes she noticed some yellow eyes and skin a few days ago. No nausea vomiti ng diarrhea or fevers, has had some constipation. Allergies Allergy/AdvReac Type Severity Reaction Status Date / Time amoxicillin Allergy Unknown . Verified 01/29/20 13:54 doxycycline Allergy Unknown . Verified 01/29/20 13:54 tetracycline Allergy Unknown Verified 01/29/20 13:54 prednisone AdvReac Mild LOSES HER Verified 01/29/20 13:54 TASTE Home Medications Medication Instructions Recorded Confirmed Type aspirin 81 mg tablet,delayed 81 mg PO QAM 07/02/18 01/29/20 History release ascorbic acid 1,000 1 ea PO QAM 01/26/20 01/29/20 History yt-fweqjtqoujiu-brdibnuf powder effervescent pack ([facility]) multivitamin 2 tab PO QAM 01/26/20 01/29/20 History hydrocodone 5 mg-acetaminophen 325 1 tab PO Q6H PRN #10 tab 01/29/20 Rx mg tablet ([place]) Patient History Medical History (Updated 04/09/21 @ 11:22 by AC Nina) Acute anxiety Alcohol abuse Chronic back pain Chronic neuropathic pain Herniated disc History of right breast cancer S/P LUMPECTOMY, RADIATION Hyperlipidemia Marijuana abuse Osteoarthritis Spinal stenosis Severe at L4-5 Tinnitus Transient ischemic attack (TIA) X 2 (03/2017 & 09/2017) Surgical History History of breast biopsy History of colonoscopy History of dilatation and curettage Hx of lumpectomy RT BREAST Social History Smoking Status: Never smoker Tobacco Type: Cigarettes Second Hand Exposure: No; Hx Alcohol Use: Yes Alcohol type: wine Hx Substance Use: Yes Last Used Substance Other:: 1 WEEK AGO Preferred Language: Citizen Of [place] Communication Ability: Effective Supplier Quality Specialist Required: No Beliefs That Will Affect Care: None Current Living Situation: Alone Current Living Situation Comment: [facility] Other Information That Helps Us Care for You: Yes Feels Safe at Home: Yes Safety Concerns: Feels Safe At This Time Assistive Devices: None Review of Systems Review of Systems: ROS: Gen: Denies weakness, fevers, weight loss Eyes: No eye redness, or pain, no recent vision changes Resp: No SOB, no cough Cardio: No palpitations/irregular beats, no chest pain GI: As per HPI, otherwise (-) : Denies pain on urination Skin: No jaundice, itching or new rashes Physical Exam Constitutional: well developed and cooperative Eyes: PERRL, conjunctivae normal, anicteric sclerae Respiratory: normal respiratory effort, lungs clear to auscultation Cardiovascular: RRR, no murmur, no edema Gastrointestinal (Abdomen): Percussion/Palpation: + abdomen tender (Mild diffuse adbdominal msk tenderness. No signs of acute abdomen.) and abdomen soft; no guarding and abdomen not rigid Skin: no rashes, warm and dry normal turgor Neurologic: PERRL, EOMI, accommodation nl, no face palsy, no dysarthria awake; not confused Psychiatric: A+Ox3, euthymic affect Orientation: alert, oriented x 3 and cooperative Results & Data ([facility]) Vital Signs (Past 12 Hours) Vital Signs Temp Pulse Resp BP Pulse Ox 04/09/21 07:29 36.8 C 78 16 108/67 95 04/08/21 23:00 36.3 C L 91 H 18 146/92 H 95 Laboratory Results WBC 9.2, Hb 15.6, Hct46.1, plts 431. Na 137, K 4.0, Cl 105, CO2 25, BUN 8, Cr 1.08. INR 1.1 Diagnostic Findings CTAP 04/08/21: . Multifocal hepatic metastasis are new from the 01/29/2020 exam. This may be secondary to the right breast mass described on the 01/29/[address] Mammographic workup recommended if not already conducted. 2. Moderately distended gallbladder with intrahepatic and extrahepatic biliary ductal dilation. There is abrupt narrowing at the level of the mid common bile duct without obstructing stone or lesion identified. This could be correlated with ERCP. 3. No bowel obstruction or bowel wall thickening. 4. Colonic diverticulosis. 5. Additional findings as above.
[2021-04-09] MEDS ORDERED: NON-FORMULARY MEDICATION (Ascorbic Acid-Multivit-Min [Emergen-C] 1,000 mg Powder Effervesc PO SCH (09:00)
[2021-04-09] MEDS: MULTIVITAMIN CHEWABLE TAB PO SCH (09:22)
--- NOTE | 2021-04-09 09:43 | Emergency Department Note ---
Impression & Plan Total bilirubin, elevated, Abdominal pain, Transaminitis, Liver metastases, Common bile duct (CBD) stricture, Nausea ED Provider Note This note has been copied without alteration from the original completed for IT purposes other than to remove a co-signer (somehow that was added to the note in the EMR) from the note who is from the inpatient team who did not provide care with myself in the ER but provided inpatient care here. Provider: Dustin Chery MD DATE OF SERVICE: 04/08/2021 CHIEF COMPLAINT: Abdominal pain, CT abnormalities HISTORY OF PRESENT ILLNESS: Patient is a 80-year-old female history of right- sided breast cancer lumpectomy over a decade ago presenting here today referred after an abnormal outpatient CT. Patient evidently reports over the past several weeks to months has been experiencing some nausea and vomiting with eating and decreased intake as well as some pain in the right upper back and right upper abdominal region. Given worsening she saw her doctor's office this morning and an outpatient CT scan. CT was concerning for new finding of liver metastasis as well as some gallbladder enlargement and possible CBD stenosis. Radiology report questions possible metastatic disease. Patient states he received some pain medicine earlier and the pain is not too bad now after shot at the office. Patient denies severe nausea at this time but states she has not been eating well. States she is had some bump an issue around her right breast for a while but had bad experiences before and has not followed up on this and now is angry at herself as this is likely causing her issue today. REVIEW OF SYSTEMS: A total of 10 review of systems was obtained and negative except as stated above in the HPI. PAST MEDICAL HISTORY: As noted above MEDICATIONS: Reviewed home medications SOCIAL HISTORY: Former smoker, lives at home PHYSICAL EXAM: GENERAL: alert and oriented in no acute distress on stretcher Head: normocephalic and atraumatic EYES: No injection, discharge or icterus. NECK: Trachea midline. LUNGS: Airway patent. No retractions no tachypnea HEART: Regular rate and rhythm. ABDOMEN: Soft minimal right upper quadrant tenderness. No guarding or rebound. Not peritoneal. SKIN: Acyanotic, warm, dry, without rashes EXTREMITIES: Without swelling, tenderness or deformity NEUROLOGICAL: No focal deficits. No aphasia. No facial droop or slurred speech. Ambulatory. EK bpm normal sinus rhythm with sinus arrhythmia. QTc 429. No acute ST segment elevation or depression. Patient's laboratory studies and imaging reviewed. Differential includes Infection, dehydration, metabolic abnormality, hypo/hyperglycemia, electrolyte disturbance, anemia, hypoxia, cardiac sources, intracerebral event, toxicologic, neurologic, as well as other pathologies. IMPRESSION/MEDICAL DECISION MAKING: Patient presents abnormal CT finding. Records reviewed. Blood work shows an elevated bilirubin LFTs concerning for possible CBD either stenosis or developing occlusion from likely metastatic liver disease. Question of this may be result of prior breast cancer. Patient not severely anemic. Not peritoneal and do not believe requires emergent surgery. Do not believe this is cholangitis or infected at this point. Given the elevated bilirubin and CBD findings feel that further observation here and GI consultation the morning for possible ERCP and biopsy/stent placement may be very beneficial for the patient . Patient was in agreement with this. We did discuss at length the findings and likely oncological process behind this. DIAGNOSIS: Elevated bilirubin, liver metastasis, common bile duct stricture DISPOSITION: Hospitalist will evaluate Patient was agreeable with this plan. Past Med/Surg History Medical History (Updated 04/09/21 @ 00:16 by Alexsandra Moran DO) Acute anxiety Alcohol abuse Chronic back pain Chronic neuropathic pain Herniated disc History of right breast cancer S/P LUMPECTOMY, RADIATION Hyperlipidemia Marijuana abuse Osteoarthritis Spinal stenosis Severe at L4-5 Tinnitus Transient ischemic attack (TIA) X 2 (03/2017 & 09/2017) Surgical History History of breast biopsy History of colonoscopy History of dilatation and curettage Hx of lumpectomy RT BREAST Social History Smoking Status: Never smoker Tobacco Type: Cigarettes Second Hand Exposure: No; Hx Alcohol Use: Yes Alcohol type: wine Hx Substance Use: Yes Last Used Substance Other:: 1 WEEK AGO Preferred Language: E[place] Communication Ability: Effective High School Tutor Required: No Beliefs That Will Affect Care: None Current Living Situation: Alone Current Living Situation Comment: [place] Other Information That Helps Us Care for You: Yes Feels Safe at Home: Yes Safety Concerns: Feels Safe At This Time Assistive Devices: Contacts and Glasses Allergies Allergies Allergy/AdvReac Type Severity Reaction Status Date / Time amoxicillin Allergy Unknown . Verified 01/29/20 13:54 doxycycline Allergy Unknown . Verified 01/29/20 13:54 tetracycline Allergy Unknown Verified 01/29/20 13:54 prednisone AdvReac Mild LOSES HER Verified 01/29/20 13:54 TASTE Home Meds Home Medications Medication Instructions Recorded Confirmed aspirin 81 mg tablet,delayed 81 mg PO QAM 07/02/18 01/29/20 release ascorbic acid 1,000 1 ea PO QAM 01/26/20 01/29/20 qr-plaguhuijqso-ihttcfki powder effervescent pack ([facility]) multivitamin 2 tab PO QAM 01/26/20 01/29/20 Previous Rx's Medication Instructions Recorded hydrocodone 5 mg-acetaminophen 325 1 tab PO Q6H PRN #10 tab 01/29/20 mg tablet ([place]) Results & Data (ED) Vital Signs Vital Signs - 24 hr 04/08/21 15:51 04/08/21 19:15 Temperature 36.6 C Temperature Source Temporal Artery Scan Pulse Rate 97 H Pulse Rate [Right Finger] 93 H Respiratory Rate 18 20 Respiratory Effort / Characteristics Non-Labored Respiratory Depth Normal Blood Pressure 104/85 Blood Pressure [Right Arm] 162/92 H Blood Pressure Mean 91 Blood Pressure Mean [Right Arm] 115 Blood Pressure Position [Right Arm] Sitting Pulse Oximetry 95 97 Oxygen Delivery Method Room Air Sepsis Recent Fever Within 48 Hours No Sepsis New/Unexplained Change in Mental Status No Sepsis Action Taken by Nursing No Action Required Laboratory Data Result diagrams: 04/08/21 17:32 04/08/21 17:32 Lab Results 04/08/21 04/08/21 04/08/21 Range/Units 17:32 17:32 17:32 WBC 9.22 (4.8-10.8) K/uL RBC 5.25 (4.2-5.4) M/uL Hgb 15.6 (12.0-16.0) g/dL Hct 46.1 (37-47) % MCV 87.8 (80-100) fL MCH 29.7 (25-34) pg MCHC 33.8 (32-36) g/dL RDW Std Deviation 45.8 (36.4-46.3) fL RDW Coeff of [place] 14.2 (11.5-14.5) % Plt Count 431 H (130-400) K/uL MPV 9.6 (7.4-10.4) fL Immature Gran % (Auto) 0.1 % Neut % (Auto) 63.7 % Lymph % (Auto) 24.5 % [place] % (Auto) 8.4 % Eos % (Auto) 2.6 % Baso % (Auto) 0.7 % Neut # (Auto) 5.88 (1.4-6.5) K/uL Lymph # (Auto) 2.26 (1.2-3.4) K/uL [place] # (Auto) 0.77 H (0.11-0.59) K/uL Eos # (Auto) 0.24 (0-0.5) K/uL Baso # (Auto) 0.06 (0-0.2) K/uL Immature Gran # (Auto) 0.01 (0.00-0.02) K/uL Sodium 137 (136-145) mmol/L Potassium 4.0 (3.5-5.1) mmol/L Chloride 105 (98-107) mmol/L Carbon Dioxide 25 (21-32) mmol/L Anion Gap 7.0 (3-11) BUN 8 (7-18) mg/dl Creatinine 1.08 (0.6-1.2) mg/dl Est Cr Clr Drug Dosing 44.1 ml/min Est GFR ( Amer) 56.9 ml/min Est GFR (Non-Af Amer) 49.1 ml/min BUN/Creatinine Ratio 7.8 L (10-20) Glucose 96 (70-99) mg/dl Calcium 10.5 H (8.5-10.1) mg/dl Total Bilirubin 3.6 H (0.2-1) mg/dl AST 198 H (15-37) U/L ALT 173 H (12-78) U/L Alkaline Phosphatase 185 H (45-117) U/L Total Protein 8.6 H (6.4-8.2) gm/dl Albumin 3.6 (3.4-5.0) gm/dl Globulin 5.0 H (2.5-4.0) gm/dl Albumin/Globulin Ratio 0.7 L (0.9-2) Lipase 280 (73-393) U/L COVID-19 Eval Order SARS-CoV-2 (PCR) (Negative) 04/08/21 04/08/21 Range/Units 18:42 18:42 WBC (4.8-10.8) K/uL RBC (4.2-5.4) M/uL Hgb (12.0-16.0) g/dL Hct (37-47) % MCV (80-100) fL MCH (25-34) pg MCHC (32-36) g/dL RDW Std Deviation (36.4-46.3) fL RDW Coeff of Marques (11.5-14.5) % Plt Count (130-400) K/uL MPV (7.4-10.4) fL Immature Gran % (Auto) % Neut % (Auto) % Lymph % (Auto) % [place] % (Auto) % Eos % (Auto) % Baso % (Auto) % Neut # (Auto) (1.4-6.5) K/uL Lymph # (Auto) (1.2-3.4) K/uL [place] # (Auto) (0.11-0.59) K/uL Eos # (Auto) (0-0.5) K/uL Baso # (Auto) (0-0.2) K/uL Immature Gran # (Auto) (0.00-0.02) K/uL Sodium (136-145) mmol/L Potassium (3.5-5.1) mmol/L Chloride (98-107) mmol/L Carbon Dioxide (21-32) mmol/L Anion Gap (3-11) BUN (7-18) mg/dl Creatinine (0.6-1.2) mg/dl Est Cr Clr Drug Dosing ml/min Est GFR ( Amer) ml/min Est GFR (Non-Af Amer) ml/min BUN/Creatinine Ratio (10-20) Glucose (70-99) mg/dl Calcium (8.5-10.1) mg/dl Total Bilirubin (0.2-1) mg/dl AST (15-37) U/L ALT (12-78) U/L Alkaline Phosphatase (45-117) U/L Total Protein (6.4-8.2) gm/dl Albumin (3.4-5.0) gm/dl Globulin (2.5-4.0) gm/dl Albumin/Globulin Ratio (0.9-2) Lipase (73-393) U/L COVID-19 Eval Order Covid19 at [facility] SARS-CoV-2 (PCR) NEGATIVE (Negative) Administered Medications Lorazepam (Ativan) 1 mg in 2 mls @ 2 mls/min IV PRN ONE Stop: 04/09/21 21:16 Last Admin: 04/08/21 21:48 Dose: 2 mls/min Documented by: [id number] Magnesium Hydroxide (Magnesium Hydroxide Susp 30 Ml Udc) 30 ml PO Q6H PRN PRN Reason: Constipation Stop: 05/09/21 00:12 Last Admin: 04/09/21 00:46 Dose: 30 ml Documented by: [id number] Multivitamins/Folic Acid/Vitamin C (Multivitamin Chewable Tab) 2 tab PO QAM ELYSE Stop: 05/09/21 08:59 Last Admin: 04/09/21 09:22 Dose: Not Given Documented by: [id number] Zolpidem Tartrate (Zolpidem Tartrate 5 Mg Tab) 5 mg PO HS PRN PRN Reason: Sleep Stop: 05/09/21 00:12 Last Admin: 04/09/21 00:50 Dose: 5 mg Documented by: [id number] Discontinued Medications Influenza Virus Vaccine (Influenza Vaccine High Dose Pf 65+ 0.7 Ml Syr) 0.7 ml IM .ONCE ONE Stop: 04/09/21 08:01 Last Admin: 04/09/21 09:22 Dose: Not Given Documented by: [id number] Lorazepam (Lorazepam 2 Mg/4 Ml Vial) Confirm Administered Dose 2 mg .ROUTE .STK- MED ONE Stop: 04/08/21 21:41 Last Admin: 04/09/21 00:15 Dose: Not Given Documented by: [id number] Discharge Plan Visit Data Chief Complaint: Abnormal Labs/Diagnostic Testing Stated Complaint: POSITIVE CT SCAN ED Provider: Dustin Chery Discharge Problem: Total bilirubin, elevated, Abdominal pain, Transaminitis, Liver metastases, Common bile duct (CBD) stricture, Nausea Patient Disposition: Admitted As Inpatient Discharge Instructions Interventions: ED Discharge Assessment Last Done: 04/08/21 22:09 Discharge Problem: Abdominal pain Qualifiers: Abdominal location: right upper quadrant Qualified Code(s): R10.11 - Right upper quadrant pain
--- NOTE | 2021-04-09 10:22 | Magnetic Resonance Report ---
MRCP CLINICAL HISTORY: Biliary obstruction. COMPARISON STUDY: Abdominal CT dated 04/08/2021. TECHNIQUE: Abdominal MRCP is performed utilizing various T1 and T2-weighted sequences in the axial an d coronal planes. IV contrast was not administered for this examination. 3-D reformats are created an d assessed. The examination is compromised by motion artifact. FINDINGS: The liver is top normal in size and there is evidence of diffuse/multifocal hepatic metastatic diseas e. Lesions measure up to 8 cm with associated mass effect. There is moderate to severe intrahepatic b iliary ductal dilatation. The common bile duct is dilated measuring up to 1.6 cm in diameter. There i s focal beaking of the distal common bile duct above the ampulla, and an obstructing mass lesion is n ot excluded. There are no intraluminal filling defects to suggest choledocholithiasis. The pancreatic duct is normal in caliber. The unenhanced spleen, adrenal glands, and kidneys are grossly unremarkable. The gallbladder is diste nded but otherwise normal in appearance. No gallstones are identified. The abdominal aorta is normal in caliber. No bowel obstruction is identified. There is no evidence of destructive bony lesion. No p leural effusion is identified. IMPRESSION: 1. There is moderate to severe intra and extrahepatic biliary ductal dilatation as above. There is fo terrance beaking of the common bile duct above the ampulla, and findings are suspicious for an obstructing mass lesion. This may be related to extrinsic mass effect from a left lobe hepatic mass abutting the common bile duct. ERCP correlation is recommended. 2. There is no clear evidence of choledocholithiasis. 3. There is evidence of multifocal hepatic metastatic disease. 4. The pancreatic duct is normal in caliber. 5. Additional findings as above. Dictated: 04/09/2021 9:49 AM Transcribed: 04/09/2021 10:12 AM Mena [id number] [email or web address] Electronically signed by: Rishi Kwon M.D. 04/09/2021 10:20 AM
--- NOTE | 2021-04-09 15:08 | History & Physical Bridge Note ---
Date of Service April 09, 2021 History & Physical Bridge Note I have examined the patient, reviewed the History & Physical and in the interval since the performance of the History & Physical I have noted the following changes of clinical significance: no changes noted EUS and ERCP today Patient was explained in detail regarding risks, benefits, limitations and alternatives of the above endoscopic procedure. Risks of intravenous sedation used for procedure were also explained. Risks include, but not limited to perforation, bleeding, infection, respiratory distress, cardiac arrest and . Patient is also aware about the possibility of missed lesion. Patient's questions were answered. The patient verbalized understanding the information and agreed to undergo the procedure.
[2021-04-09] MEDS ORDERED: fentaNYL citrate 100 MCG/2 ML VIAL ONE (15:11)
[2021-04-09] MEDS ORDERED: SUCCINYLCHOLINE CHLORIDE 20 MG/ML 10 ML VIAL IV ONE (15:11)
[2021-04-09] MEDS ORDERED: DEXAMETHASONE SOD INJ 4 MG/ML VIAL ONE (15:11)
[2021-04-09] MEDS ORDERED: ONDANSETRON INJ 2 MG/ML 2 ML VIAL ONE (15:11)
[2021-04-09] MEDS ORDERED: PROPOFOL IV EMULSION 10 MG/ML 20 ML VIAL IV ONE (15:11)
[2021-04-09] MEDS ORDERED: CIPROFLOXACIN / D5W 400 MG/200 ML BAG IV STA (15:12)
[2021-04-09] MEDS ORDERED: CIPROFLOXACIN 400MG / 200ML D5W IV ONE (15:13)
[2021-04-09] MEDS ORDERED: INDOMETHACIN 50 MG SUPP PR ONE (15:16)
--- NOTE | 2021-04-09 15:36 | Anesthesiology Consultation ---
Date of Service April 09, 2021 Assessment & Plan Chart Review Chart Review: Acceptable Risk for Surgery and Patient NOT seen in Pre Admission Testing Consults Requested none ASA ASA4 Proposed Anesthesia Anesthesia Type: General Risk / Benefits Reviewed With: PT / POA / Parent / Guardian, Accepts Plan and Informed Consent Obtained History Surgery Operation Date: 04/09/21 09:10 Proposed Procedures p Endoscopic Retrograde Cholangiopancreatogram - Dong Morales MD s Endoscopic Ultrasonography Upper - Dong Morales MD Height/Weight Height: 5 ft 8.5 in Weight: 69.4 kg Allergies Allergy/AdvReac Type Severity Reaction Status Date / Time amoxicillin Allergy Unknown . Verified 01/29/20 13:54 doxycycline Allergy Unknown . Verified 01/29/20 13:54 tetracycline Allergy Unknown Verified 01/29/20 13:54 prednisone AdvReac Mild LOSES HER Verified 01/29/20 13:54 TASTE Medications Home Medications Medication Instructions Recorded Confirmed Last Taken aspirin 81 mg tablet,delayed 81 mg PO QAM 07/02/18 01/29/20 01/29/20 release ascorbic acid 1,000 1 ea PO QAM 01/26/20 01/29/20 01/29/20 yj-qgfrkzykywcu-rpyieyiz powder effervescent pack ([facility]) multivitamin 2 tab PO QAM 01/26/20 01/29/20 01/29/20 hydrocodone 5 mg-acetaminophen 325 1 tab PO Q6H PRN #10 tab 01/29/20 Unknown mg tablet ([place]) Active Medications Generic Name Dose Route Start Last Admin Trade Name Freq PRN Reason Stop Dose Admin Lorazepam 1 mg in 2 mls @ 2 mls/min 04/09/21 21:15 04/08/21 21:48 Ativan IV 04/09/21 21:16 2 mls/min PRN ONE Administration Ciprofloxacin 400 mg in 200 mls @ 100 mls/hr 04/09/21 15:12 04/09/21 15:25 Cipro / D5w IV 04/09/21 17:11 100 mls/hr NOW STA Administration Protocol Magnesium Hydroxide 30 ml 04/09/21 00:13 04/09/21 00:46 Magnesium Hydroxide Susp 30 Ml Udc PO 05/09/21 00:12 30 ml Q6H PRN Administration Constipation Multivitamins/Folic Acid/Vitamin C 2 tab 04/09/21 09:00 04/09/21 09:22 Multivitamin Chewable Tab PO 05/09/21 08:59 Not Given QAM ELYSE Zolpidem Tartrate 5 mg 04/09/21 00:13 04/09/21 00:50 Zolpidem Tartrate 5 Mg Tab PO 05/09/21 00:12 5 mg HS PRN Administration Sleep NPO Date Last Intake of Fluids: 04/08/21 Time Last Intake of Fluids: 18:30 Date Last Intake of Solids: 04/08/21 Time Last Intake of Solids: 18:30 Past Medical History Medical History Acute anxiety Alcohol abuse Chronic back pain Chronic neuropathic pain Herniated disc History of right breast cancer S/P LUMPECTOMY, RADIATION Hyperlipidemia Marijuana abuse Osteoarthritis Spinal stenosis Severe at L4-5 Tinnitus Transient ischemic attack (TIA) X 2 (03/2017 & 09/2017) Exercise / Class Metabolic Activity II 4-5 Yardwork/Stairs/Walk up hill Past Surgical History Surgical History History of breast biopsy History of colonoscopy History of dilatation and curettage Hx of lumpectomy RT BREAST Past Anesthesia History No Hx of Anesthesia Complications and No Family Hx of Anesthesia Complications History of PONV No Hx of PONV and No Hx of Motion Sickness Social History Smoking Status: Never smoker Hx Alcohol Use: Yes Alcohol type: wine alcohol intake frequency: a few times a week Hx Substance Use: Yes substance use type: marijuana Last Used Substance Other:: 1 WEEK AGO Physical Exam Vital Signs Last Vital Signs Temp 36 C L 04/09/21 14:41 Pulse 81 04/09/21 14:41 Resp 20 04/09/21 14:41 BP 133/88 04/09/21 14:41 Pulse Ox 97 04/09/21 14:41 ENMT Mouth: no dentition abnormality Thyromental Distance: > or= 3.5 Finger Breadths Mallampati Class: II Neck normal visual inspection Respiratory normal respiratory effort Auscultation: lungs clear to auscultation bilaterally Cardiovascular Rate/Rhythm: regular rate and regular rhythm Psychiatric Orientation: alert Testing Laboratory Results 04/08/21 17:32 04/08/21 17:32 PT 11.2 Seconds (9.0-12.0) 04/08/21 21:13 INR 1.1 (0.9-1.1) 04/08/21 21:13 Urine Color Dark Yellow 04/09/21 02:45 Urine Appearance Clear (Clear) 04/09/21 02:45 Urine pH 5.0 (4.5-7.5) 04/09/21 02:45 Ur Specific [place] > 1.045 (1.000-1.030) H 04/09/21 02:45 Urine Protein 1+ (Negative) H 04/09/21 02:45 Urine Glucose (UA) Negative (Negative) 04/09/21 02:45 Urine Ketones Trace (Negative) H 04/09/21 02:45 Urine Nitrite Positive (Negative) A 04/09/21 02:45 Ur Leukocyte Esterase 1+ (Negative) H 04/09/21 02:45 Urine WBC (Auto) 5-10 /hpf (0-5) H 04/09/21 02:45 Urine RBC (Auto) 5-10 /hpf (0-4) H 04/09/21 02:45 U Hyaline Cast (Auto) 0 /lpf (0-5) 04/09/21 02:45 U Epithel Cells (Auto) >30 /lpf (0-5) H 04/09/21 02:45 Urine Bacteria (Auto) Negative (Negative) 04/09/21 02:45
[2021-04-09] MEDS ORDERED: fentaNYL citrate 100 MCG/2 ML VIAL IV PRN (15:37)
[2021-04-09] MEDS ORDERED: ePHEDrine sulfate 50 MG/ML AMP IV PRN (15:37)
[2021-04-09] MEDS ORDERED: ATROPINE SULFATE 0.1 MG/ML 10ML SYR IV PRN (15:37)
--- NOTE | 2021-04-09 16:00 | Consultation Report ---
MEDICAL ONCOLOGY CONSULTATION DATE OF SERVICE: 04/09/2021 REASON FOR CONSULTATION: Metastatic carcinoma, primary unknown, suspect breast origin. HISTORY OF PRESENT ILLNESS: Alexsandra is a pleasant 80-year-old postmenopausal female with history o f right-sided breast cancer, status post lumpectomy and adjuvant radiation therapy, she estimates, 10 years ago. She was admitted to [facility] on 04/08 because of increased abdominal pain and bloating, specifically over the past couple of days experienced some minor right upper quad rant pain and she had contacted [facility]'s manager transportation planning nursing service who assessed her and recommended s he come to the Emergency Room. Apparently, radiograph (CT scan) was done by her primary provider, ich revealed multiple hepatic mets, prompting her admission. Again, I tried to extract specifics reg arding her breast cancer and will go to our pathology department to see if records from decade plus a go can be obtained. From what she is saying, her breast cancer was early stage. She underwent lumpe ctomy by Dr. Nader Felton who has since retired followed by adjuvant radiation therapy. She does n ot recall if endocrine therapy was recommended or taken. She does not report skeletal pain, but defi nitely her appetite has waned over the past several weeks. She sees Dr. Ange Cohen primarily. Cheryl louie is on very few prescription medications and she readily admits had not followed with medical oncolo gy for at least 5 or 6 years. PAST MEDICAL HISTORY: Significant for alcohol abuse, chronic back pain, chronic neuropathic pain, he rniated disk, right-sided breast cancer, hyperlipidemia, marijuana abuse, osteoarthritis, spinal sten osis, tinnitus, and TIA x2. PAST SURGICAL HISTORY: Includes a lumpectomy, original breast biopsy, colonoscopy and dilatation and curettage. MEDICATIONS PRIOR TO ADMISSION: Include aspirin 81 mg p.o. daily, vitamin C 1000 mg p.o. daily, mult ivitamin 2 tablets p.o. daily, hydrocodone 5/325 one tablet p.o. q.6 hours p.r.n. ALLERGIES: LISTED INCLUDE PREDNISONE, TETRACYCLINE, DOXYCYCLINE AND AMOXICILLIN. SOCIAL HISTORY: The patient is . She is actively drinking alcohol, she prefers wine. She i s a nonsmoker and does use marijuana. She apparently has a daughter who is engaged with helping her out on occasion. REVIEW OF SYSTEMS: CONSTITUTIONAL: As per HPI, most notably for bloating, abdominal pain, some nausea, mild anorexia, u ndefined weight loss. SKIN: No rashes or lesions. No history of dermatoses. HEENT: She reports no headaches, lightheadedness or dizziness. No dysphagia or sore throat. No sin us symptoms. LYMPH NODES: No history of lymphoproliferative disease. CARDIAC: No history of coronary artery disease, no angina or palpitations. PULMONARY: Negative for COPD. She is not short of breath, dyspneic or orthopneic. No cough or hemo ptysis reported. GASTROINTESTINAL: As per HPI. GENITOURINARY: No hematuria, dysuria, or urinary incontinence. PSYCHIATRIC: Positive for anxiety by history. Positive for substance abuse. ENDOCRINE: No diabetes or thyroid disease. NEUROLOGIC: Negative for seizure, stroke or migraine headache. MUSCULOSKELETAL: No arthralgias or myalgias. No focal muscle weakness. HEMATOLOGIC: Negative for anemia, thrombophilia or bleeding diathesis. PHYSICAL EXAMINATION: GENERAL: Very pleasant 80-year-old female, awake, alert, appropriate, in no acute distress. VITAL SIGNS: Temperature 36.8, pulse 78, respiratory rate 16, blood pressure 108/67. SKIN: Warm, dry, noncyanotic without petechia, rash or ecchymosis. HEENT: Atraumatic, normocephalic. Eyes: PERRLA. EOMI. Sclerae are nonicteric. No conjunctival in jection. Nares patent without rhinorrhea or discharge. Throat clear. Tongue midline. Mucous membr anes are moist. NECK: Supple without JVD or thyromegaly. LYMPH NODES: No cervical or supraclavicular palpable nodes. HEART: Regular rate and rhythm. No clicks, rubs, murmurs or gallops. LUNGS: Clear to auscultation bilaterally. ABDOMEN: Some tenderness in the right upper quadrant. No rigidity or guarding. Bowel sounds are hy poactive. EXTREMITIES: Musculoskeletal strength and pulses are equal in all 4 quadrants. No clubbing, cyanosis or edema. NEUROLOGIC: Grossly intact. LABORATORY DATA: WBC count 9220, hemoglobin 15.6, platelet count 431,000. PT and INR are normal. S odium 137, potassium 4.0, chloride 105, carbon dioxide 25, creatinine 1.08, BUN 8. Calcium is mildly elevated at 10.5, albumin 3.6, total bilirubin 3.6, AST 198, ALT 173, alkaline phosphatase 185. RADIOGRAPHIC DATA: CT scan of the abdomen and pelvis with IV contrast reveals multifocal hepatic met astatic disease, which is new as compared to scans from 01/2020. Reviewed report from a CT scan done in 01/2020, which also pointed out a spiculated mass in the right breast of 2.9 cm suggestive of neop lasia. There were also nondisplaced fractures of the lateral left sixth and seventh ribs. These iss ues apparently were not followed upon per the patient. IMPRESSION: 1. Right upper quadrant abdominal pain. 2. Liver metastatic disease, primary unknown, suspect breast origin. 3. Liver transaminitis. 4. History of transient ischemic attack. 5. Anxiety. PLAN: It was my pleasure to visit with Alexsandra Griffin who is a 80-year-old postmenopausal femal e, not yet established at [facility]. The patient was diagnosed with what she claims as early stage breast cancer she estimates in 2007 or 2008, underwent lumpectomy by Dr. Nader Felton who subsequently is retired. She recalls undergoing adjuvant radiation therapy, did not receive chemo nor does she recal l endocrine therapy. We will petition our pathology department to see if I can locate her original b reast cancer diagnostic report. This will not alleviate the need for a liver biopsy moving forward. My suspicion is significant for metastatic breast cancer. I advised Alexsandra at the bedside that c ertainly this is not a favorable picture, but would be happy to offer her palliative treatment with t he goal to extend life while perhaps maintaining some life quality moving forward. The patient is am enable to outpatient followup. In the meantime, we will obtain a CA 27-29 and 15-3 and plan for outp atient pet scanning to evaluate her bones as well as visceral involvement. I have nothing further to add and agree with current medical management. Any questions or concerns, please feel free to conta ct me at any time. Job ID: [id number]
--- NOTE | 2021-04-09 16:35 | Operative Report ---
Post Operative Report Pre & Post Diagnosis Operation Date: 04/09/21 09:10 Pre-Op Diagnosis: Elevated Liver Function Tests Post-Op Diagnosis: Elevated Liver Function Tests, Common Bile Duct Obstruction, Liver Metastasis I identified the patient and participated in the time-out.: Yes Procedure Operation Date: 04/09/21 09:10 Actual Procedures p Endoscopic Retrograde Cholangiopancreatography, Common Bile Duct Stent Placement(Not Applicable) - Dong Morales MD s Upper Endoscopic Ultrasonography with Biopsies(Not Applicable) - Dong Morales MD Surgeon Dong Morales MD Heating Operators Engineer None Estimated Blood Loss 0 Findings See Below (Liver mets, biliary obstruction, pancreas mass, CBD stent placed) Specimens Liver mass FNA Description of Procedure EUS/ERCP I attest to the content of the Intraoperative Record and any orders documented therein. Any exceptions are noted below.
--- NOTE | 2021-04-09 16:46 | GI REPORT ---
Patient Name: Alexsandra Griffin Procedure Date: 04/09/2021 3:20 PM Date of : 1940 Admit Type: Inpatient Age: 80 Gender: Female Attending MD: Dong Morales MD Procedure: Upper GI endoscopy Providers: Dong Morales MD Referring MD: José Miguel Fair M.d. Indications: Abnormal CT of the GI tract Medicines: Propofol per Anesthesia Complications: No immediate complications. Estimated Blood Loss: Estimated blood loss: none. Procedure: Pre-Anesthesia Assessment: - Prior to the procedure, a History and Physical was performed, and patient medications, allergies and sensitivities were reviewed. The patient's tolerance of previous anesthesia was reviewed. - The risks and benefits of the procedure and the sedation options and risks were discussed with the patient. All questions were answered and informed consent was obtained. - Patient identification and proposed procedure were verified prior to the procedure by the physician and the nurse. The procedure was verified in the procedure room. - Pre-procedure physical examination revealed no contraindications to sedation. After obtaining informed consent, the endoscope was passed under direct vision. Throughout the procedure, the patient's blood pressure, pulse, and oxygen saturations were monitored continuously. The Endoscope was introduced through the mouth, and advanced to the second part of duodenum. The upper GI endoscopy was accomplished without difficulty. The patient tolerated the procedure well. Findings: The examined esophagus was normal. The entire examined stomach was normal. The duodenal bulb and second portion of the duodenum were normal. Impression: - Normal esophagus. - Normal stomach. - Normal duodenal bulb and second portion of the duodenum. Recommendation: - Perform an upper endoscopic ultrasound (UEUS) today. Dong Morales MD 04/09/2021 4:46:05 PM This report has been signed electronically. Note Initiated On: 04/09/2021 3:20 PM Number of Addenda: 0 I attest to the content of the Intraoperative Record and orders documented therein, exceptions below {[id number]}
--- NOTE | 2021-04-09 16:57 | GI REPORT ---
Patient Name: Alexsandra Griffin Procedure Date: 04/09/2021 3:39 PM Date of : 1940 Admit Type: Inpatient Age: 80 Gender: Female Attending MD: Dong Morales MD Procedure: Upper EUS Providers: Dong Morales MD Referring MD: José Miguel Fair M.d. Indications: Suspected mass in liver on CT scan Medicines: General Anesthesia Complications: No immediate complications. Estimated Blood Loss: Estimated blood loss: none. Procedure: Pre-Anesthesia Assessment: - Prior to the procedure, a History and Physical was performed, and patient medications, allergies and sensitivities were reviewed. The patient's tolerance of previous anesthesia was reviewed. - The risks and benefits of the procedure and the sedation options and risks were discussed with the patient. All questions were answered and informed consent was obtained. - Patient identification and proposed procedure were verified prior to the procedure by the physician and the nurse. The procedure was verified in the procedure room. - Pre-procedure physical examination revealed no contraindications to sedation. After obtaining informed consent, the endoscope was passed under direct vision. Throughout the procedure, the patient's blood pressure, pulse, and oxygen saturations were monitored continuously. The scope was introduced through the mouth, and advanced to the second part of duodenum. The upper EUS was accomplished without difficulty. The patient tolerated the procedure well. Findings: ENDOSONOGRAPHIC FINDING: : There was no sign of significant endosonographic abnormality in the ampulla. No masses were identified. There was dilation in the common bile duct which measured up to 15 mm. There was a suggestion of a stricture in the lower third of the main bile duct. Moderate amount of hyperechoic material consistent with sludge was visualized endosonographically in the common bile duct and in the gallbladder. Multiple round lesions were identified endosonographically in the left lobe of the liver. The endosonographic appearance was suggestive of metastases. The lesions were hypoechoic. The largest lesion measured 20 mm in maximal cross-sectional diameter. The endosonographic borders were well-defined. Fine needle biopsy was performed. Color Doppler imaging was utilized prior to needle puncture to confirm a lack of significant vascular structures within the needle path. Four passes were made with the 25 gauge Hammerless EchoTip biopsy needle using a transgastric approach. A visible core of tissue was obtained. A preliminary cytologic examination was performed. The cellularity of the specimen was adequate. Final cytology results are pending. Verification of patient identification for the specimen was done by the physician and nurse using the patient's name and date. A round mass was identified in the pancreatic head. The mass was hypoechoic. The mass measured 25 mm in maximal cross-sectional diameter. The endosonographic borders were well-defined. An intact interface was seen between the mass and the adjacent structures suggesting a lack of invasion. This was staged T3 N1 M1 (based on endosonographic criteria of metastasis to the liver). The staging applies if malignancy is confirmed. There was no sign of significant endosonographic abnormality in the visualized portion of the left adrenal gland. There was no sign of significant endosonographic abnormality involving the celiac trunk. Impression: - Multiple metastatic lesions were found in the liver. Fine needle biopsy performed. - A mass was identified in the pancreatic head causing biliary obstruction. This could be a either a primary malignancy Vs metastatic lesion. - There was dilation in the common bile duct which measured up to 15 mm due to distal stricture. . - Hyperechoic material consistent with sludge was visualized endosonographically in the common bile duct and in the gallbladder. Recommendation: - Await cytology results. - Perform an ERCP today. Dong Morales MD 04/09/2021 4:56:58 PM This report has been signed electronically. Note Initiated On: 04/09/2021 3:39 PM Number of Addenda: 0 I attest to the content of the Intraoperative Record and orders documented therein, exceptions below {[id number]}
--- NOTE | 2021-04-09 16:59 | Fluoroscopy Report ---
FL ERCP biliary ductal HISTORY: 80 years-old Female EXPLORE DUCTS COMPARISON: CT abdomen and pelvis and MRCP 04/08/2021 TECHNIQUE: 12 spot fluoroscopic images of the abdominal right upper quadrant were obtained utilizing 86.8 seconds fluoroscopy time. FINDINGS: Endoscope is noted within the duodenum. Cannulation of the common bile duct with retrograde injection of contrast. Intrahepatic and extrahepatic biliary ductal dilation redemonstrated with abrupt narrow ing at the level of the mid common bile duct. Subsequent images demonstrate deployment of a metallic common bile duct stent which appears to be in satisfactory positioning. IMPRESSION: Fluoroscopic assistance as above. ACT 112: Negative or not required by law. The above report was generated using voice recognition software. It may contain grammatical, syntax o r spelling errors. Electronically signed by: Gregg Sifuentes M.D. 04/09/2021 4:57 PM
--- NOTE | 2021-04-09 17:03 | GI REPORT ---
Patient Name: Alexsandra Griffin Procedure Date: 04/09/2021 4:05 PM Date of : 1940 Admit Type: Inpatient Age: 80 Gender: Female Attending MD: Dong Morales MD Procedure: ERCP Providers: Dong Morales MD Referring MD: José Miguel Fair M.d. Indications: Jaundice, Bile duct stricture Medicines: General Anesthesia Complications: No immediate complications. Estimated Blood Loss: Estimated blood loss: none. Procedure: Pre-Anesthesia Assessment: - Prior to the procedure, a History and Physical was performed, and patient medications, allergies and sensitivities were reviewed. The patient's tolerance of previous anesthesia was reviewed. - The risks and benefits of the procedure and the sedation options and risks were discussed with the patient. All questions were answered and informed consent was obtained. - Patient identification and proposed procedure were verified prior to the procedure by the physician and the nurse. The procedure was verified in the procedure room. - Pre-procedure physical examination revealed no contraindications to sedation. After obtaining informed consent, the scope was passed under direct vision. Throughout the procedure, the patient's blood pressure, pulse, and oxygen saturations were monitored continuously. The Scope was introduced through the mouth, and advanced to the duodenum and used to inject contrast into the bile duct. The ERCP was accomplished without difficulty. The patient tolerated the procedure well. Findings: The health information technician film was normal. The esophagus was successfully intubated under direct vision. The scope was advanced to a normal major papilla in the descending duodenum without detailed examination of the pharynx, larynx and associated structures, and upper GI tract. The upper GI tract was grossly normal. A 0.025 inch x 270 cm angled Visiglide wire was passed into the biliary tree. The Fusion OMNI sphincterotome was passed over the guidewire and the bile duct was then deeply cannulated. Contrast was injected. I personally interpreted the bile duct images. Ductal flow of contrast was adequate. Image quality was adequate. Contrast extended to the main bile duct. Opacification of the entire biliary tree was successful. The maximum diameter of the ducts was 15 mm. The lower third of the main bile duct contained a single severe stenosis 30 mm in length. Biliary sphincterotomy was made with a monofilament traction (standard) sphincterotome using ERBE electrocautery. There was no post-sphincterotomy bleeding. One 10 mm by 8 cm uncovered metal biliary stent was placed into the common bile duct. Bile flowed through the stent. The stent was in good position. Impression: - A single severe malignant appearing biliary stricture was found in the lower third of the main bile duct with upstream ductal dilation. - A biliary sphincterotomy was performed. - One uncovered metal biliary stent was placed into the common bile duct. Recommendation: - Return patient to [facility] for ongoing care. - Refer to an oncologist. Dong Morales MD 04/09/2021 5:02:30 PM This report has been signed electronically. Note Initiated On: 04/09/2021 4:05 PM Number of Addenda: 0 I attest to the content of the Intraoperative Record and orders documented therein, exceptions below {[id number]}
--- NOTE | 2021-04-09 17:40 | Anesthesiology Progress Note ---
Date of Service April 09, 2021 Anesthesia Post Procedure Vital Signs Vital Signs: Temp Pulse Pulse Resp BP BP Pulse Ox 04/09/21 17:35 70 25 H 151/87 H 94 04/09/21 17:25 36.4 C L 66 23 152/91 H 95 04/09/21 17:15 68 18 158/93 H 100 04/09/21 17:05 69 22 161/96 H 100 04/09/21 16:55 72 25 H 167/100 H 100 04/09/21 16:45 36.9 C 80 14 167/97 H 96 04/09/21 14:41 36 C L 81 20 133/88 97 04/09/21 14:00 36.4 C L 93 H 16 156/94 H 97 04/09/21 07:29 36.8 C 78 16 108/67 95 04/08/21 23:00 36.3 C L 91 H 18 146/92 H 95 04/08/21 19:15 93 H 20 162/92 H 97 Pain Intensity Right Abdomen: Pain Intensity: 5 Abdomen: Pain Intensity: 4 Transfer of Care Handoff Completed per policy Notes Mental Status: alert / awake / arousable and participated in evaluation Patient Amnestic to Procedure: Yes Nausea / Vomiting: adequately controlled Pain: adequately controlled Airway Patency, RR, SpO2: stable & adequate BP & HR: stable & adequate Hydration State: stable & adequate Anesthetic Complications: no major complications apparent and Pt Satisfied with anesthetic care
[2021-04-09] MEDS: ALUMINUM/MAGNESIUM SUSP 30 ML UDC PO PRN (19:47)
[2021-04-09] MEDS: HYDROCODONE/ACETAMOPHEN 5/325MG TAB PO PRN (19:57)
--- NOTE | 2021-04-09 20:50 | Hospitalist Progress Note ---
Date of Service April 09, 2021 Assessment & Plan (1) Abdominal pain: Plan: Abdominal pain -Elevated bilirubin 3.6, alkaline phosphatase 185- suggestive of biliary obstruction/pathology -CTAP: gallbladder distension with extra/intrahepatic biliary ductal dilation, n arrowing at CBD without stone visualized -Low suspicion for acute cholangitis/cholecystitis given afebrile, normal CBC, hemodynamic stability- holding off on antibiotics for now. Likely choledocholith iasis -Lipase level, acetaminophen level ordered -MRCP ordered. GI consulted, -Will obtain ERCP today. -Patient states she may seek second opinion and followup at [facility] where her daughter lives. -explained that for now most improtant thing is to obtain abiopsy. D/W radioolgy that biopsy with ultrasound guidance sole be plan B if ERCP is unsuccessful. -Toradol PRN for pain Liver metastasis with history of breast cancer -R breast lumpectomy 10+ years ago -CTAP: multifocal hepatic metastases new from 01/2020 CT -Will need staging CT Chest this admission -Oncology consulted -INR level ordered, calculate MELD score once obtained Transaminitis -AST/ALT 198/173, likely due to liver metastasis, low suspicion for acute liver failure at this time -Trend LFTs History of TIA -Holding home aspirin for ERCP today Anxiety -Not on any home medications (2) Liver metastases: Plan: as above, will obtain biopsy through ERCP (3) Transaminitis: (4) History of right breast cancer: Plan: Patient has h/o of lumpectomy and hamm radiation treatment. This occurred 10 years ago and patient was lost to followup after 5 years as she did not feel the need to get mammograms. Lat year patient was told she had a lesion in her breast, but was noncompliant with workup. (5) Transient ischemic attack (TIA): Admission and Anticipated Discharge Date Admission Date: April 08, 2021 Subjective 80 yo female reports feeling well. She has no new complaints. Review of Systems Review of Systems: All systems reviewed & are unremarkable except as noted in HPI & below Physical Exam Physical Exam: General: well-appearing, laying in bed in no acute distress HEENT: anicteric sclerae, moist mucous membranes, no lymphadenopathy CV: RRR, normal S1 and S2, no murmurs noted Resp: CTAB, no accessory muscle use, unlabored respirations Abdomen: moderate tenderness of RUQ, negative Huang's sign, slight distension Neuro: AOx3, no gross focal motor deficits, no sensory deficits Psych: +anxious Skin: no jaundice or rashes, warm and dry Extremities: no peripheral edema, cap refill <2s, +2 distal pulses Results & Data Results & Data ([facility]) Vital Signs (Past 12 Hours) Vital Signs Temp Pulse Pulse Resp BP BP Pulse Ox 04/09/21 20:14 36.2 C L 96 H 16 150/97 H 95 04/09/21 18:49 36.2 C L 79 16 166/94 H 92 04/09/21 18:12 76 16 156/90 H 95 04/09/21 17:45 36.5 C 67 16 145/81 H 97 04/09/21 17:35 70 25 H 151/87 H 94 04/09/21 17:25 36.4 C L 66 23 152/91 H 95 04/09/21 17:15 68 18 158/93 H 100 04/09/21 17:05 69 22 161/96 H 100 04/09/21 16:55 72 25 H 167/100 H 100 04/09/21 16:45 36.9 C 80 14 167/97 H 96 04/09/21 14:41 36 C L 81 20 133/88 97 04/09/21 14:00 36.4 C L 93 H 16 156/94 H 97 PG Care Time/CCT Total # of Minutes Spent Total Time Spent with Patient: Total time spent is greater than 50% in coordination of care (as documented) at patient's floor/unit and/or counseling patient: Coding Level of Care Code 01814 Subseq Hosp Care Lvl 3 Diagnoses Abdominal pain R10.11 Abdominal location: right upper quadrant Liver metastases C78.7 Transaminitis R74.01 History of right breast cancer Z85.3 Transient ischemic attack (TIA) G45.9 Time Spent (min) 35 (1) Abdominal pain Abdominal location: right upper quadrant Qualified Code(s): R10.11 - Right upper quadrant pain
[2021-04-09] MEDS ORDERED: LORazepam 1 MG/2 ML VIAL IV ONE (21:15)
[2021-04-10] MEDS ORDERED: bisacodyL 10 MG SUPP PR STA (02:15)
[2021-04-10] MEDS: ALUMINUM/MAGNESIUM SUSP 30 ML UDC PO PRN ×2 (02:34→09:41)
[2021-04-10] MEDS: HYDROCODONE/ACETAMOPHEN 5/325MG TAB PO PRN (02:42)
[2021-04-10 06:23] LABS: Hematocrit (blood only) 39.9 % (37-47); Hemoglobin 13.4 g/dL (12.0-16.0); Mean Corpuscular Hemoglobin 29.1 pg (25-34); Mean Corpuscular Hgb Conc 33.6 g/dL (32-36); Mean Corpuscular Volume 86.7 fL (80-100); Mean Platelet Volume 9.7 fL (7.4-10.4); Platelet Count 401 K/uL (130-400); RDW Coefficient of Variation 14.3 % (11.5-14.5); RDW Standard Deviation 45.8 fL (36.4-46.3); White Blood Count 12.37 K/uL (4.8-10.8)
[2021-04-10 06:52] LABS: Calcium 9.5 mg/dl (8.5-10.1); Creatinine Clr Calc Pharmacy 46.2 ml/min; Est GFR (African American) 60.3 ml/min; Potassium 4.1 mmol/L (3.5-5.1)
[2021-04-10 06:56] LABS: Albumin Globulin Ratio 0.7 (0.9-2); Bilirubin,Total 1.7 mg/dl (0.2-1); Globulin 4.4 gm/dl (2.5-4.0); Total Protein 7.4 gm/dl (6.4-8.2)
[2021-04-10] MEDS: MULTIVITAMIN CHEWABLE TAB PO SCH (08:51)
[2021-04-10] MEDS: MAGNESIUM HYDROXIDE SUSP 30 ML UDC PO PRN (09:00)
--- NOTE | 2021-04-10 13:11 | Gastroenterology Progress Note ---
Date of Service April 10, 2021 Assessment & Plan (1) Mass of pancreas: Plan: With bile duct obstruction - relieved with stenting of the main bile duct, yesterday by ERCP. WBC 12 today but doubt new cholangitis - pt instructed to seek medical attn if any fevers, chills, body aches, yellow eyes/skin or other signs of infection. We will watch for path results. OP f/u with oncology and PCP for further w/u tx of pancreas mass and breast mass (per pt there is a breast mass requiring f/u mammography). Admission and Anticipated Discharge Date Admission Date: April 08, 2021 Subjective 80 yr old female admitted on 04/08 with diffuse abd discomfort and elevated LFTs. MRCP with bile duct obstruction. EUS yesterday with pancreas head mass ? new malignancy vs related to remote hx of breast cancer (S/P lumpectomy and radiation). ERCP yesterday by Dr. Morales with placement of metal stent in the main bile duct. Saw the pt this morning prior to her discharge. Was feeling much better. Up walking around. Tolerated a regular consistency breakfast though not much appetite. LFTs much better today, though WBC 12. Pt denying and chills. Afebrile. Has not been other evidence of cholangitis, so likely secondary to stress of undergoing procedure. Review of Systems Review of Systems: ROS: (today's symptoms): Gen: Denies weakness, fevers, weight loss Eyes: No eye redness, or pain, no recent vision changes Resp: No SOB, no cough Cardio: No palpitations/irregular beats, no chest pain GI: No abdominal pain, no nausea/vomiting : Denies pain on urination Skin: No jaundice, itching or new rashes Ext: No edema Physical Exam Constitutional: well developed, + ill appearing and cooperative Eyes: PERRL, conjunctivae normal, anicteric sclerae Respiratory: normal respiratory effort, lungs clear to auscultation Cardiovascular: RRR, no murmur, no edema Gastrointestinal (Abdomen): Percussion/Palpation: + abdomen tender (Mild diffuse adbdominal msk tenderness. No signs of acute abdomen.) and abdomen soft; no guarding and abdomen not rigid Skin: no rashes, warm and dry normal turgor Neurologic: PERRL, EOMI, accommodation nl, no face palsy, no dysarthria awake; not confused Psychiatric: A+Ox3, euthymic affect Orientation: alert, oriented x 3 and cooperative Results & Data ([facility]) Vital Signs (Past 12 Hours) Vital Signs Temp Pulse Resp BP BP Pulse Ox 04/10/21 08:41 36.6 C 69 16 160/81 H 96 04/10/21 03:42 36.5 C 68 20 168/95 H 96 Laboratory Results T Bili 3.6->1.7, AST 198->150, ALT 173->131, Alk Phos 185->167, WBC 12, Hb 13, Hct 39, Plts 401, Na 134, K 4.1, Cl 103, CO2 26, BUN 15, Cr 1.03, glucose 182. Diagnostic Findings ERCP yesterday: A single severe malignant appearing biliary stricture was found in the lower third of the main bile duct with upstream ductal dilation. - A biliary sphincterotomy was performed. - One uncovered metal biliary stent was placed into the common bile duct.
--- NOTE | 2021-04-15 00:37 | Discharge Summary ---
Date of Service April 10, 2021 Admission HPI Per Admitting Provider 80 yo F with PMH R breast cancer s/p lumpectomy with radiation 10+ years ago, chronic neuropathic pain, TIA, previous alcohol use disorder presenting with abdominal pain. Over past several weeks pt has had mild-moderate generalized abdominal pain, bloating, nausea, vomiting, decreased appetite and feelings of indigestion that responded minimally to antacids. Also some minor RUQ pain. 2 days prior pt experienced severe RUQ pain at night and called [facility] on-call nursing service who assessed her and recommended going to ED if symptoms continued. Pt's pain slightly decreased over next day as she was taking Tylenol every 6 hours and saw PCP Ange Cohen for appt at clinic earlier today. Pt sent to ED for emergency CT scan by PCP. Denies fevers, chills, fatigue, night sweats, diarrhea, yellowing of skin over this time. Did not have any vomiting over past few days. On evaluation, pt reports mild discomfort and feeling bloated but explicitly denies pain. Denies any associated symptoms at present. Principal Diagnosis breast cancer mets to liver. Discharge Exam General: well-appearing, laying in bed in no acute distress HEENT: anicteric sclerae, moist mucous membranes, no lymphadenopathy CV: RRR, normal S1 and S2, no murmurs noted Resp: CTAB, no accessory muscle use, unlabored respirations Abdomen: moderate tenderness of RUQ, negative Huang's sign, slight distension Neuro: AOx3, no gross focal motor deficits, no sensory deficits Psych: +anxious Skin: no jaundice or rashes, warm and dry Extremities: no peripheral edema, cap refill <2s, +2 distal pulses Discharge Data Allergies Allergy/AdvReac Type Severity Reaction Status Date / Time amoxicillin Allergy Unknown . Verified 01/29/20 13:54 doxycycline Allergy Unknown . Verified 01/29/20 13:54 tetracycline Allergy Unknown Verified 01/29/20 13:54 prednisone AdvReac Mild LOSES HER Verified 01/29/20 13:54 TASTE Consultations 04/08/21 19:23 ED Decision to Admit Stat 04/08/21 20:23 Consult Oncology Routine 04/09/21 00:13 Consult Gastroenterology Routine Procedures Performed Operation Date: 04/09/21 09:10 Actual Procedures p Endoscopic Retrograde Cholangiopancreatography, Common Bile Duct Stent Placement(Not Applicable) - Dong Morales MD s Upper Endoscopic Ultrasonography with Biopsies(Not Applicable) - Dong Morales MD Ordered Studies 04/08/21 20:33 MR MRCP Urgent 04/09/21 15:00 FL ERCP biliary ductal Routine 04/09/21 15:18 US upper EUS PACS images Routine Hospital Course (1) Abdominal pain: Abdominal pain -Elevated bilirubin 3.6, alkaline phosphatase 185- suggestive of biliary obstruction/pathology -CTAP: gallbladder distension with extra/intrahepatic biliary ductal dilation, narrowing at CBD without stone visualized -Low suspicion for acute cholangitis/cholecystitis given afebrile, normal CBC, hemodynamic stability- holding off on antibiotics for now. Likely choledocholithiasis -Lipase level, acetaminophen level ordered -MRCP ordered. GI consulted, -Will obtain ERCP today. -Patient states she may seek second opinion and followup at [facility] where her daughter lives. -explained that for now most improtant thing is to obtain a biopsy. D/W radioolgy that biopsy with ultrasound guidance sole be plan B if ERCP is unsuccessful. Thankfully, ERCP appears to have been successful in obtaining a biopsy. 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 - The metastatic adenocarcinoma is estrogen receptor positive and progesterone receptor negative. - The metastatic adenocarcinoma fails to over-express the HER-2/eduardo protein and a fluorescent in situ hybridization test in search of amplification of the HER- 2/eduardo gene is pending in this case. - The Ki-67 proliferation index is 20%. - Please see microscopic description. Liver metastasis with history of breast cancer -R breast lumpectomy 10+ years ago -CTAP: multifocal hepatic metastases new from 01/2020 CT -Will need staging CT Chest this admission -Oncology consulted -will followup with Oncology at discharge. Transaminitis -AST/ALT 198/173, likely due to liver metastasis, low suspicion for acute liver failure at this time History of TIA -Holding home aspirin for ERCP today. will resume at discharge. Anxiety -Not on any home medications (2) Liver metastases: as above, will obtain biopsy through ERCP (3) Transaminitis: (4) History of right breast cancer: Patient has h/o of lumpectomy and hamm radiation treatment. This occurred 10 years ago and patient was lost to followup after 5 years as she did not feel the need to get mammograms. Lat year patient was told she had a lesion in her breast, but was noncompliant with workup. (5) Transient ischemic attack (TIA): Total Time Total Time Spent Total Time Spent (In Minutes): 32 Discharge Plan Discharge Items Patient Disposition: Home - Self-Care Reason For Visit: POSITIVE CT SCAN Discharge Diagnosis: lesions Activity: Resume your previous activity Non-emergency contact: Primary Care Provider Call non-emergency contact if: you have any medication questions Follow-up/Referrals: Ramon Patino DO [Physician] - 04/23/21 2:10 pm Ange Cohen DO [Primary Care Provider] - 04/17/21 1:30 pm (APPT WITH DR TYLER) Diet: Regular and Low Fat Addtl Attending Provider Instructions: Sadly we found multiple lesions in your liver. This is likely to be malignant. We obtained a tissue biopsy through the ERCP. Your biliary duct was also opened. You will need to followup with Oncology in a week or 2 once tissue results are obtained. Will recommend followup with PCP in 1-[address] for next 5 days while taking tramadol Pending Studies at Discharge: No Stand-Alone Forms: My [facility], Opioid Pain Management, Smoking Cessation Medications and DC Order Prescriptions: New polyethylene glycol 3350 [Miralax] 17 gram Powder In Packet 17 g PO DAILY PRN (Reason: constipation) Qty: 30 RF: 0 tramadol 50 mg tablet 50 mg PO Q8H PRN (Reason: severe pain (scale score 7-10)) Qty: 14 RF: 0 Continued multivitamin Tablet,Chewable 2 tab PO QAM RF: 0 Emergen-C 1,000 mg Powder Effervescent In Packet 1 ea PO QAM RF: 0 aspirin 81 mg Tablet,Delayed Release (Dr/Ec) 81 mg PO QAM RF: 0 Discontinued hydrocodone-acetaminophen [G[place]on] 5-325 mg tablet 1 tab PO Q6H PRN (Reason: pain) Qty: 10 RF: 0 Discharge Orders: Discharge Order (Routine); Ordered 04/10/21 Ordered By: José Miguel Johnson Admission Data Admit Date/Time: 04/08/21 20:23 Attending Provider: José Miguel Johnson Admit Provider: Ry Obrien Primary Care Provider: Ange Cohen Other Providers: Alexsandra Moran ; Ramon Patino V. ; Danielle Duenas Other Interventions: Discharge Summary Assessment (RN) Last Done: 04/10/21 09:46 Coding Level of Care Code D/C DAY MANAGEMENT >30 MINS Diagnoses Abdominal pain R10.11 Abdominal location: right upper quadrant Liver metastases C78.7 Transaminitis R74.01 History of right breast cancer Z85.3 Transient ischemic attack (TIA) G45.9
[2021-04-16 10:57] LABS: CA 27.29 66 U/mL (<38); CA15-3 Breast Antigen 43 U/mL (<32)
== END 2021-04-10 12:21 | disposition home or self-care (01) | DRG 420 ==
LOC: ED 15:17 → 3E 20:23 → SUATTDRO 20:23 → 3E 22:09

== ENCOUNTER 2022-04-25 20:50 | Inpatient (IN) ==
[2022-04-25] MEDS ORDERED: MEROPENEM 1,000 MG in SYRINGE 0 ML IV STA (22:04)
[2022-04-25] MEDS ORDERED: SODIUM CHLORIDE 0.9% 500 ML IV ONE (22:21)
[2022-04-25 22:23] LABS: Hematocrit (blood only) 30.5 % (34.1-44.9); Hemoglobin 11.2 g/dl (12.0-16.0); Mean Corpuscular Hemoglobin 37.8 pg (25.0-34.0); Mean Corpuscular Hgb Conc 36.7 g/dL (32.0-36.0); Mean Platelet Volume 9.8 fL (9.4-12.3); Nucleated RBC # (auto) 0.09 K/uL (0-0); Nucleated RBC % (auto) 0.5 %; Platelet Count 225 K/uL (130-400); RDW Coefficient of Variation 19.4 % (11.5-14.5); Red Blood Count 2.96 M/uL (3.93-5.22); White Blood Count 16.64 K/ul (4.8-10.8)
[2022-04-25] MEDS ORDERED: ALBUT/IPRATROP 3MG/0.5MG NEB 3 ML VIAL NEB STA (22:33)
[2022-04-25 22:34] LABS: INR 1.3 (0.9-1.1); Partial Thromboplastin Ratio 1.1; Partial Thromboplastin Time 29.4 Seconds (21.0-31.0); Prothrombin Time 13.5 Seconds (9.0-12.0)
[2022-04-25 22:41] LABS: Albumin Globulin Ratio 0.9 (0.9-2); BUN Creatinine Ratio 60.8 (10-20); Bilirubin,Total 1.4 mg/dl (0.2-1.0); Creatinine Clr Calc Pharmacy 37.1 ml/min; Est GFR (African American) 64.4 ml/min; Est GFR (Non-African American) 55.5 ml/min; Globulin 3.5 gm/dl (2.5-4.0); Magnesium 2.3 mg/dl (1.7-2.4); Potassium 3.2 mmol/L (3.5-5.1); Total Protein 6.5 gm/dl (6.0-8.3)
--- NOTE | 2022-04-25 22:45 | XRay Report ---
SINGLE VIEW CHEST CLINICAL HISTORY: Dyspnea FINDINGS: An AP, portable, upright chest radiograph is compared to study dated 04/22/2022. Correlatio n is made with chest CT dated 01/29/2020. The examination is degraded by portable technique and patient rotation. The heart is enlarged noting atherosclerotic calcification of the thoracic aorta. The pul monary vasculature is noncongested. Airspace consolidation is present in both lung bases. A small rig ht pleural effusion is noted. No pneumothorax is seen. The skeletal structures are osteopenic. There are chronic rib fractures. A bile duct stent is noted in the right upper quadrant. IMPRESSION: 1. Bibasilar airspace consolidation is typical for pneumonia/aspiration pneumonitis. Clinical correla tion will be required and radiographic follow-up to resolution is recommended. 2. Small right pleural effusion. 3. Cardiomegaly without radiographic evidence of congestive failure.. ACT 112: Negative or not required by law. Electronically signed by: Rishi Kwon M.D. 04/25/2022 10:43 PM
[2022-04-25 22:57] LABS: Basophils # (auto) 0.08 K/uL (0-0.2); Basophils % (auto) 0.5 %; Echinocytes 1+; Eosinophils # (auto) 0.01 K/uL (0-0.50); Eosinophils % (auto) 0.1 %; Immature Granulocytes % (auto) 4.8 %; Lymphocytes # (auto) 0.46 K/uL (1.2-3.4); Lymphocytes % (auto) 2.8 %; Monocytes # (auto) 0.71 K/uL (0.24-0.82); Monocytes % (auto) 4.3 %; Neutrophils # (auto) 14.58 K/uL (1.4-6.5); Neutrophils % (auto) 87.5 %
[2022-04-25 23:06] LABS: Base Excess VBG 8.6 mEq/L; HCO3 VBG 34 mmol/L; Oxygen Saturation VBG < 60.0 %; PCO2 VBG 46 mmHg (38-50); PO2 VBG 29 mmHg; pH VBG 7.47 (7.36-7.41)
[2022-04-25] MEDS ORDERED: OPTIRAY 320 500ml IV ONE (23:13)
[2022-04-26 00:03] LABS: Adenovirus PCR Not Detected (NotDetected); Bordetella parapertussis PCR Not Detected (NotDetected); Bordetella pertussis PCR Not Detected (NotDetected); Chlamydia pneumoniae PCR Not Detected (NotDetected); Coronavirus 229E PCR Not Detected (NotDetected); Coronavirus CoV-2 (COVID19)PCR Not Detected (NotDetected); Coronavirus HKU1 PCR Not Detected (NotDetected); Coronavirus NL63 PCR Not Detected (NotDetected); Coronavirus OC43PCR Not Detected (NotDetected); Human Metapneumovirus PCR Not Detected (NotDetected); Influenza A PCR Not Detected (NotDetected); Influenza B PCR Not Detected (NotDetected); Mycoplasma pneumoniae PCR Not Detected (NotDetected); Parainfluenza Virus 1 PCR Not Detected (NotDetected); Parainfluenza Virus 2 PCR Not Detected (NotDetected); Parainfluenza Virus 3 PCR Not Detected (NotDetected); Parainfluenza Virus 4 PCR Not Detected (NotDetected); Respiratory Syncytial VirusPCR Not Detected (NotDetected); Rhinovirus/Enterovirus PCR Not Detected (NotDetected)
--- NOTE | 2022-04-26 00:15 | CT Scan Report ---
UNENHANCED CT OF THE BRAIN; CT ANGIOGRAM OF THE BRAIN; CT ANGIOGRAM OF THE NECK CLINICAL HISTORY: Strokelike symptoms. COMPARISON STUDY: CT of the brain dated 01/29/2020. PET CT dated 05/01/2021. MR angiogram of the head a nd neck dated 04/15/2017. TECHNIQUE: Unenhanced axial CT scan of the brain is performed. Subsequently, following the IV adminis tration of 106 of [address] 320, CT angiogram of the head and neck was performed from the aortic arch t o the vertex. Images are reviewed in the axial, sagittal, and coronal planes. 3-D MIPS images are cre ated and assessed. IV contrast was administered without complication. All measurements were calculate d based on NASCET criteria. A dose lowering technique was utilized adhering to the principles of ALA RA. FINDINGS: Brain parenchyma: There is age-related involutional change noting mild subcortical and periventricula r microangiopathic disease. There is no hemorrhage, mass effect, or evidence of acute territorial isc hemia by CT criteria. There is no evidence of enhancing mass lesion on the angiogram phase images. Th e ventricles, sulci, and cisterns are normal in configuration. Myrick-white matter differentiation is p reserved. No extra-axial fluid collection is seen. Thoracic aorta: Visualized portions of the thoracic aorta are normal in caliber. The aortic arch demo nstrates standard 3-vessel anatomy. Right carotid arterial system: The right common carotid artery is widely patent, as are the right int ernal and external carotid arteries. Left carotid arterial system: The left common carotid artery is widely patent, as are the left international tax manager al and external carotid arteries. Minimal calcified plaque is seen in the carotid bulb. Vertebral arteries: The right vertebral artery is widely patent. The proximal and mid portions of the T11 are patent. 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 This is reconstituted at the skull base. Subclavian arteries: Widely patent bilaterally. Intracranial vasculature: The internal carotid arteries are patent at the skull base, as are the ante rior and middle cerebral arteries bilaterally. The vertebrobasilar system and posterior cerebral yani lupe are widely patent. There are bilateral posterior communicating arteries. The right vertebral art afsaneh is dominant. There is no aneurysm, high-grade stenosis, or focal vessel cut off seen throughout t he intracranial circulation. Jugular veins: Patent bilaterally. Dural sinuses: Patent. Lung apices: Partially visualized upper lobe lung parenchyma appears clear. Soft tissues: The visualized pharyngeal soft tissues are normal in appearance noting angiographic pha se technique. The oropharyngeal airway appears widely patent. The thyroid gland is heterogeneous. The salivary glands are normal in appearance. No cervical lymphadenopathy is seen. Skeletal structures: The skeletal structures are osteopenic. The calvarium appears intact. The cervic al spine is maintained noting moderate multilevel cervical spondylosis. There are numerous osteolytic foci throughout the calvarium and cervical spine which are new from previous and typical for bony me tastatic disease. Orbits: The bony orbits are intact. Orbital contents are normal as visualized. Sinuses and mastoids: The paranasal sinuses are clear. The mastoid air cells are well pneumatized. IMPRESSION: 1. There is no hemorrhage, mass effect, or evidence of acute territorial ischemia by CT criteria. 2. Unremarkable CT angiogram of the brain. 3. 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 This is marisela nstituted at the skull base. 4. Otherwise unremarkable CT angiogram of the neck. The carotid arteries and right vertebral artery a re widely patent. 5. 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 ACT 112: Negative or not required by law. Electronically signed by: Rishi Kwon M.D. 04/26/2022 12:12 AM
--- NOTE | 2022-04-26 00:17 | History & Physical Report ---
Date of Service April 26, 2022 Assessment & Plan (1) Pneumonia: Plan: 81yo female with history of breast cancer with metastases to the liver, spine and bone presenting with sepsis (Tachycardic, Leukocytosis, Tachypnea), elevated procalcitonin at 8.76, secondary to multifocal PNA. Patient hypoxic on arrival requiring supplemental O2, brief use of BiPAP. -Admit to PCU -Follow cultures -Check MRSA nares -Supplemental O2 as needed with humidity -Tylenol PRN -Mucinex BID -Ceftriaxone 1gm IV daily -Azithromycin -Albuterol nebs as needed (2) Atrial fibrillation with rapid ventricular response: Plan: Patient with atrial fibrillation with RVR s/p diltiazem bolus and gtt. HR now controlled, presently 83 bpm -Continue Diltiazem -Telemetry monitoring (3) Elevated LFTs: Plan: Patient with known liver metastases. Not significantly worse than prior. -Repeat LFTs in AM (4) History of right breast cancer: Plan: Patient with metastatic breast cancer with involvement of liver and spine as well as skull. No brain mets to the knowledge of patient's daughter. However, her history of gait imbalance and speech deficit is concerning. -Xeloda on hold while being treated for active infection -Continue home Dilaudid as needed - 2mg po q 4 hours. Daughter states she doesn't typically need this -Continue Methadone 5mg po BID -Continue Compazine as needed -Continue Calcitonin nasal spray BID -Zofran as needed -Magic Mouthwash for oral discomfort -Consider MRI brain to evaluate for metastatic disease when patient is more clinically stable from a HD and respiratory standpoint. (5) Depression: Plan: Chronic -Continue Duloxetine 60mg po daily F/E/N -LR at 100mL/hr + 20mEq KCL x 2 liters, repeat chemistry in AM, pureed diet as tolerated Ppx - Lovenox 30mg daily Code - Full. Given her advanced disease with progression while on Xeloda tx, patient may benefit from a Palliative Care consultation. Did not discuss this option with daughter at time of admission. Dispo - Admit to PCU History of Present Illness Chief Complaint: somnolent Primary Care Provider: DO Mukesh Crowleymeg Griffin is a 81yo female with metastatic breast cancer with involvement of the liver and spine. Patient receives her cancer [facility] at [facility]. She has received XRT to spinal lesions in her thoracic as well as cervical spine. She is on Xeloda currently. Patient was seen by her PCP several days ago with complaint of imbalance and difficulty with speech ongoing for the last several weeks. She has had progressive decline in her balance and ambulation, however, daughter notes a marked decline over the last week. She also has difficulty speaking. She was told that she has PNA and was started on Levaquin on 04/23. Her Xeloda was held during acute infection. This evening patient developed shortness of breath. Also with some confusion and somnolence. She has not had fever or chills. No cough. No complaint of abdominal pain, nausea, vomiting. She did have a loose stool x 1, otherwise no GI complaints. No additional complaints at this time. In the ER she is tachycardic, hypoxic to 85% on room air. She was placed on 5L Oxymask. Patient had an episode of atrial fibrillation and decline in saturation. She was given Cardizem bolus and started on a drip and placed on BiPAP. ER Course: Azithromycin 500mg IV Ceftriaxone 1gm IV LR + KCl Diltiazem 10mg IV then gtt Albuterol neb NSS x 1.5L Meropenem x 1 gm Allergies Allergy/AdvReac Type Severity Reaction Status Date / Time amoxicillin Allergy Unknown . Verified 04/26/22 00:54 doxycycline Allergy Unknown . Verified 04/26/22 00:54 tetracycline Allergy Unknown Unknown Verified 04/26/22 00:54 prednisone AdvReac Mild LOSES HER Verified 04/26/22 00:54 TASTE Home Medications Medication Instructions Recorded Confirmed Type aspirin 81 mg tablet,delayed 81 mg PO QAM 07/02/18 04/26/22 History release polyethylene glycol 3350 17 gram 17 g PO DAILY PRN constipation #30 04/10/21 04/26/22 Rx oral powder packet (Miralax) ea calcitonin (salmon) 200 1 spray intranasal (ALT) DAILY 04/25/22 04/26/22 History unit/actuation nasal spray duloxetine 60 mg capsule,delayed 60 mg PO DAILY 04/25/22 04/26/22 History release furosemide 40 mg tablet 80 mg PO QAM 04/25/22 04/26/22 History hydromorphone 2 mg tablet 2 - 4 mg PO Q4 PRN Pain 04/25/22 04/26/22 History levofloxacin 500 mg tablet 500 mg PO DAILY 04/25/22 04/26/22 History methadone 5 mg tablet 5 mg PO BID 04/25/22 04/26/22 History multivitamin-ferrous 1 tab PO DAILY 04/25/22 04/26/22 History fumarate-folic acid 18 mg-400 mcg tablet (Sentry) pantoprazole 40 mg tablet,delayed 40 mg PO DAILY 04/25/22 04/26/22 History release prochlorperazine maleate 5 mg 5 mg PO Q6 PRN Nausea 04/25/22 04/25/22 History tablet sennosides 8.6 mg tablet (senna) 17 mg PO BID 04/25/22 04/26/22 History vit C 250 mg-vit E 90 mg-zinc 40 1 tab PO BID 04/26/22 04/26/22 History mg-copper 1 [id number] capsule (PreserVision AREDS-2) vitamin B complex 1 tab PO DAILY 04/26/22 04/26/22 History Past Med/Surg History Medical History Acute anxiety Alcohol abuse Chronic back pain Chronic neuropathic pain Herniated disc History of right breast cancer S/P LUMPECTOMY, RADIATION Hyperlipidemia Marijuana abuse Osteoarthritis Spinal stenosis Severe at L4-5 Tinnitus Transient ischemic attack (TIA) X 2 (03/2017 & 09/2017) Surgical History History of breast biopsy History of colonoscopy History of dilatation and curettage Hx of lumpectomy RT BREAST Family History Aunt Breast cancer Social History Smoking Status: Former smoker Tobacco Type: Cigarettes Second Hand Exposure: No; Do You Dip or Chew Tobacco: No; Tobacco Cessation Education Requested by Patient: No Hx Alcohol Use: Yes Alcohol type: wine Hx Substance Use: Yes Last Used Substance Other:: 1 WEEK AGO Preferred Language: [place] Citizen Communication Ability: Effective Professional Development Director Required: No Beliefs That Will Affect Care: None marital status: / Current Living Situation: Alone Current Living Situation Comment: [facility] How many Children do You have: 2 Other Information That Helps Us Care for You: No Feels Safe at Home: Yes Safety Concerns: Feels Safe At This Time during the past year weight has: decreased > 10 lbs Assistive Devices: Glasses Review of Systems Review of Systems: All systems reviewed & are unremarkable except as noted in HPI & below Physical Exam Physical Exam: General: ill appearing, cachectic, somnolent but arousable Skin: thin, no bruising HEENT: NC/AT, PERRL, EOMI, anicteric sclera, conjunctiva without injection, external ear normal to inspection and nontender, nares patent, dry mucus membranes, tongue tender, dentition intact, no oropharyngeal lesions, neck supple, trachea midline, no LAD, no thyromegaly, no JVD Heart: +S1/S2, regular, no m/r/g Lungs: equal air entry bilaterally, coarse breath sounds bilaterally with anterior crackles left, no wheeze Abd: +BS, soft, NT/ND, no masses/organomegaly/ascites Ext: warm, 2+ pulses in UE/LE bilaterally, no clubbing/cyanosis or edema Neuro: somnolent, arousable, generalized weakness, moving all extremities with equal strength Results & Data Results & Data ([facility]) Vital Signs (Past 12 Hours) Vital Signs Temp Pulse Pulse Resp BP BP Pulse Ox 04/25/22 23:32 95 H 24 107/58 L 100 04/25/22 23:25 96 04/25/22 22:32 36.4 C L 102 H 21 125/77 100 04/25/22 22:19 102 H 24 92 04/25/22 22:19 85 L 04/25/22 20:54 36.1 C L 97 H 26 H 106/58 L 98 O2 Del Method O2 Flow Rate 04/25/22 23:32 Aerosol Mask 04/25/22 23:25 Nasal Cannula 2 04/25/22 22:32 Oxymask 5 04/25/22 22:19 Oxymask 7 04/25/22 22:19 Room Air 0 04/25/22 20:54 Room Air Laboratory Results Laboratory Results WBC 16.64 K/ul (4.8-10.8) H 04/25/22 22:00 RBC 2.96 M/uL (3.93-5.22) L 04/25/22 22:00 Hgb 11.2 g/dl (12.0-16.0) L 04/25/22 22:00 Hct 30.5 % (34.1-44.9) L 04/25/22 22:00 MCV 103.0 fL (80.0-100.0) H 04/25/22 22:00 MCH 37.8 pg (25.0-34.0) H 04/25/22 22:00 MCHC 36.7 g/dL (32.0-36.0) H 04/25/22 22:00 RDW Std Deviation 73.0 fL (36.4-46.3) H 04/25/22 22:00 RDW Coeff of Marques 19.4 % (11.5-14.5) H 04/25/22 22:00 Plt Count 225 K/uL (130-400) 04/25/22 22:00 MPV 9.8 fL (9.4-12.3) 04/25/22 22:00 Immature Gran % (Auto) 4.8 % 04/25/22 22:00 Neut % (Auto) 87.5 % 04/25/22 22:00 Lymph % (Auto) 2.8 % 04/25/22 22:00 Brooks % (Auto) 4.3 % 04/25/22 22:00 Eos % (Auto) 0.1 % 04/25/22 22:00 Baso % (Auto) 0.5 % 04/25/22 22:00 Neut # (Auto) 14.58 K/uL (1.4-6.5) H 04/25/22 22:00 Lymph # (Auto) 0.46 K/uL (1.2-3.4) L 04/25/22 22:00 Brooks # (Auto) 0.71 K/uL (0.24-0.82) 04/25/22 22:00 Eos # (Auto) 0.01 K/uL (0-0.50) 04/25/22 22:00 Baso # (Auto) 0.08 K/uL (0-0.2) 04/25/22 22:00 Immature Gran # (Auto) 0.80 K/uL (0.00-0.02) H 04/25/22 22:00 Absolute Nucleated RBC 0.09 K/uL (0-0) H 04/25/22 22:00 Nucleated RBC % (auto) 0.5 % 04/25/22 22:00 Echinocytes 1+ 04/25/22 22:00 PT 13.5 Seconds (9.0-12.0) H 04/25/22 22:00 INR 1.3 (0.9-1.1) H 04/25/22 22:00 APTT 29.4 Seconds (21.0-31.0) 04/25/22 22:00 PTT Ratio 1.1 04/25/22 22:00 VBG pH 7.47 (7.36-7.41) H 04/25/22:44 VBG pCO2 46 mmHg (38-50) 04/25/22:44 VBG pO2 29 mmHg 04/25/22:44 VBG HCO3 34 mmol/L 04/25/22:44 VBG O2 Saturation < 60.0 % 04/25/22:44 VBG Base Excess 8.6 mEq/L 04/25/22:44 Sodium 134 mmol/L (136-145) L 04/25/22 22:00 Potassium 3.2 mmol/L (3.5-5.1) L 04/25/22 22:00 Chloride 93 mmol/L (98-107) L 04/25/22 22:00 Carbon Dioxide 31 mmol/L (21-32) 04/25/22 22:00 Anion Gap 10 (3-11) 04/25/22 22:00 BUN 59 mg/dl (6-23) H 04/25/22 22:00 Creatinine 0.97 mg/dl (0.6-1.2) 04/25/22 22:00 Est Cr Clr Drug Dosing 37.1 ml/min 04/25/22 22:00 Est GFR ( Amer) 64.4 ml/min 04/25/22 22:00 Est GFR (Non-Af Amer) 55.5 ml/min 04/25/22 22:00 BUN/Creatinine Ratio 60.8 (10-20) H 04/25/22 22:00 Glucose 97 mg/dl (70-99(Fasting)) 04/25/22 22:00 Calcium 9.0 mg/dl (8.5-10.1) 04/25/22 22:00 Magnesium 2.3 mg/dl (1.7-2.4) 04/25/22 22:00 Magnesium Cancelled 04/25/22 22:00 Total Bilirubin 1.4 mg/dl (0.2-1.0) H 04/25/22 22:00 AST 85 U/L (13-39) H 04/25/22 22:00 ALT 47 U/L (7-52) 04/25/22 22:00 Alkaline Phosphatase 163 U/L (34-104) H 04/25/22 22:00 Troponin I High Sens 20.6 pg/ml (0-14) H 04/26/22 01:00 B-Natriuretic Peptide 325 pg/ml (0-100) H 04/25/22 22:44 Total Protein 6.5 gm/dl (6.0-8.3) 04/25/22 22:00 Albumin 3.0 gm/dl (3.4-5.0) L 04/25/22 22:00 Globulin 3.5 gm/dl (2.5-4.0) 04/25/22 22:00 Albumin/Globulin Ratio 0.9 (0.9-2) 04/25/22 22:00 Procalcitonin 8.76 ng/ml (0-0.5) H 04/25/22 22:00 Adenovirus (PCR) Not Detected (NotDetected) 04/25/22 22:35 B. pertussis DNA (PCR) Not Detected (NotDetected) 04/25/22 22:35 B.parapertussis DNA PCR Not Detected (NotDetected) 04/25/22 22:35 C. pneumoniae DNA (PCR) Not Detected (NotDetected) 04/25/22 22:35 Coronavirus OC43 (PCR) Not Detected (NotDetected) 04/25/22 22:35 Coronavirus HKU1 (PCR) Not Detected (NotDetected) 04/25/22 22:35 Coronavirus 229E (PCR) Not Detected (NotDetected) 04/25/22 22:35 SARS-CoV-2 (PCR) Not Detected (NotDetected) 04/25/22 22:35 Coronavirus NL63 (PCR) Not Detected (NotDetected) 04/25/22 22:35 Human Metapneumovir PCR Not Detected (NotDetected) 04/25/22 22:35 Influenza Type A (PCR) Not Detected (NotDetected) 04/25/22 22:35 Influenza Type B (PCR) Not Detected (NotDetected) 04/25/22 22:35 M. pneumoniae (PCR) Not Detected (NotDetected) 04/25/22 22:35 Parainfluenza 1 (PCR) Not Detected (NotDetected) 04/25/22 22:35 Parainfluenza 2 (PCR) Not Detected (NotDetected) 04/25/22 22:35 Parainfluenza 3 (PCR) Not Detected (NotDetected) 04/25/22 22:35 Parainfluenza 4 (PCR) Not Detected (NotDetected) 04/25/22 22:35 RSV (PCR) Not Detected (NotDetected) 04/25/22 22:35 Entero/Rhino (PCR) Not Detected (NotDetected) 04/25/22 22:35 Impressions Chest X-Ray 04/25/22 21:02 SINGLE VIEW CHEST CLINICAL HISTORY: Dyspnea FINDINGS: An AP, portable, upright chest radiograph is compared to study dated 04/22/2022. Correlation is made with chest CT dated 01/29/2020. The examination is degraded by portable technique and patient rotation. The heart is enlarged noting atherosclerotic calcification of the thoracic aorta. The pulmonary vasculature is noncongested. Airspace consolidation is present in both lung bases. A small right pleural effusion is noted. No pneumothorax is seen. The skeletal structures are osteopenic. There are chronic rib fractures. A bile duct stent is noted in the right upper quadrant. IMPRESSION: 1. Bibasilar airspace consolidation is typical for pneumonia/aspiration pneumonitis. Clinical correlation will be required and radiographic follow-up to resolution is recommended. 2. Small right pleural effusion. 3. Cardiomegaly without radiographic evidence of congestive failure.. ACT 112: Negative or not required by law. Electronically signed by: iRshi Kwon M.D. 04/25/2022 10:43 PM Chest CTA 04/25/22 22:04 CT ANGIOGRAM OF THE CHEST CLINICAL HISTORY: Strokelike symptoms. Breast cancer. COMPARISON STUDY: Chest x-ray dated 04/25/2022. Chest CT dated 01/29/2020. PET/CT dated 05/01/2021. TECHNIQUE: Following the IV administration of 106 cc of Optiray 320, CT angiogram of the chest was performed from the upper abdomen to the thoracic inlet utilizing the pulmonary embolus protocol. Images are reviewed in the axial, sagittal, and coronal planes. 3-D MIPS images are created and assessed. IV contrast was administered without complication. A dose lowering technique was utilized adhering to the principles of ALARA. The examination is degraded by motion artifact. CT DOSE: 1103.06 mGy.cm FINDINGS: Thyroid: Normal in size and heterogeneous in attenuation. Thoracic aorta: There is moderate atherosclerotic calcification of the thoracic aorta, which is normal in caliber and demonstrates (arch anatomy. No dissection is seen. Pulmonary vasculature: The pulmonary trunk is normal in caliber. There are no filling defects identified in main, lobar, or segmental pulmonary branches to suggest pulmonary embolus. Evaluation of the peripheral branches is degraded by motion artifact. Heart: The heart is enlarged and without pericardial effusion. Lungs and pleural spaces: Evaluation of the lung parenchyma is significantly degraded by motion artifact. The trachea and central airways are clear. Dense airspace consolidation is seen at both lung bases, right greater than left. No pleural effusion is identified. Mediastinum: There is no mediastinal lymphadenopathy. Cynthia: Clear. Axillae: There is no axillary lymphadenopathy. Upper abdomen: Pneumobilia is noted. There is a large perfusion defect suggested in the central spleen. Metastatic disease is suggested in the right hepatic lobe. Skeletal structures: The skeletal structures are osteopenic. Degenerative change and hyperkyphosis is noted throughout the thoracic spine. Extensive osteolytic metastatic disease is noted. There is a moderate compression deformity of T11 which is new from previous. Soft tissues: The patient is cachectic. IMPRESSION: 1. There is no evidence of pulmonary embolus in the main, lobar, or segmental pulmonary arteries. 2. Multifocal airspace consolidation is seen at the lung bases, typical for pneumonia/aspiration pneumonitis. Clinical correlation will be required and radiographic follow-up to resolution is recommended. 3. 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 4. A compression deformity of T11 is new from previous and may be acute to subacute. Correlate for point tenderness. 5. There is evidence of right lobe hepatic metastatic disease. 6. A large perfusion defect in the central spleen is nonspecific and a splenic infarct is not excluded. 7. Cardiomegaly. 8. Additional findings as above. ACT 112: Negative or not required by law. Electronically signed by: Rishi Kwon M.D. 04/26/2022 12:[address] 04/25/22 22:[address] OF THE BRAIN; CT ANGIOGRAM OF THE BRAIN; CT ANGIOGRAM OF THE NECK CLINICAL HISTORY: Strokelike symptoms. COMPARISON STUDY: CT of the brain dated 01/29/2020. PET CT dated 05/01/2021. MR angiogram of the head and neck dated 04/15/2017. TECHNIQUE: Unenhanced axial CT scan of the brain is performed. Subsequently, following the IV administration of 106 of Optiray 320, CT angiogram of the head and neck was performed from the aortic arch to the vertex. Images are reviewed in the axial, sagittal, and coronal planes. 3-D MIPS images are created and assessed. IV contrast was administered without complication. All measurements were calculated based on NASCET criteria. A dose lowering technique was utilized adhering to the principles of ALARA. FINDINGS: Brain parenchyma: There is age-related involutional change noting mild subcortical and periventricular microangiopathic disease. There is no hemorrhage, mass effect, or evidence of acute territorial ischemia by CT criteria. There is no evidence of enhancing mass lesion on the angiogram phase images. The ventricles, sulci, and cisterns are normal in configuration. Myrick- white matter differentiation is preserved. No extra-axial fluid collection is seen. Thoracic aorta: Visualized portions of the thoracic aorta are normal in caliber. The aortic arch demonstrates standard 3-vessel anatomy. Right carotid arterial system: The right common carotid artery is widely patent, as are the right internal and external carotid arteries. Left carotid arterial system: The left common carotid artery is widely patent, as are the left internal and external carotid arteries. Minimal calcified plaque is seen in the carotid bulb. Vertebral arteries: The right vertebral artery is widely patent. The proximal and mid portions of the T11 are patent. 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 This is reconstituted at the skull base. Subclavian arteries: Widely patent bilaterally. Intracranial vasculature: The internal carotid arteries are patent at the skull base, as are the anterior and middle cerebral arteries bilaterally. The vertebrobasilar system and posterior cerebral arteries are widely patent. There are bilateral posterior communicating arteries. The right vertebral artery is dominant. There is no aneurysm, high-grade stenosis, or focal vessel cut off seen throughout the intracranial circulation. Jugular veins: Patent bilaterally. Dural sinuses: Patent. Lung apices: Partially visualized upper lobe lung parenchyma appears clear. Soft tissues: The visualized pharyngeal soft tissues are normal in appearance noting angiographic phase technique. The oropharyngeal airway appears widely patent. The thyroid gland is heterogeneous. The salivary glands are normal in appearance. No cervical lymphadenopathy is seen. Skeletal structures: The skeletal structures are osteopenic. The calvarium appears intact. The cervical spine is maintained noting moderate multilevel cervical spondylosis. There are numerous osteolytic foci throughout the calvarium and cervical spine which are new from previous and typical for bony metastatic disease. Orbits: The bony orbits are intact. Orbital contents are normal as visualized. Sinuses and mastoids: The paranasal sinuses are clear. The mastoid air cells are well pneumatized. IMPRESSION: 1. There is no hemorrhage, mass effect, or evidence of acute territorial ischemia by CT criteria. 2. Unremarkable CT angiogram of the brain. 3. 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 This is reconstituted at the skull base. 4. Otherwise unremarkable CT angiogram of the neck. The carotid arteries and right vertebral artery are widely patent. 5. 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 ACT 112: Negative or not required by law. Electronically signed by: Rishi Kwon M.D. 04/26/2022 12:12 AM Head CTA 04/25/22 22:[address] OF THE BRAIN; CT ANGIOGRAM OF THE BRAIN; CT ANGIOGRAM OF THE NECK CLINICAL HISTORY: Strokelike symptoms. COMPARISON STUDY: CT of the brain dated 01/29/2020. PET CT dated 05/01/2021. MR angiogram of the head and neck dated 04/15/2017. TECHNIQUE: Unenhanced axial CT scan of the brain is performed. Subsequently, following the IV administration of 106 of Optiray 320, CT angiogram of the head and neck was performed from the aortic arch to the vertex. Images are reviewed in the axial, sagittal, and coronal planes. 3-D MIPS images are created and assessed. IV contrast was administered without complication. All measurements were calculated based on NASCET criteria. A dose lowering technique was utilized adhering to the principles of ALARA. FINDINGS: Brain parenchyma: There is age-related involutional change noting mild subcortical and periventricular microangiopathic disease. There is no hemorrhage, mass effect, or evidence of acute territorial ischemia by CT criteria. There is no evidence of enhancing mass lesion on the angiogram phase images. The ventricles, sulci, and cisterns are normal in configuration. Myrick- white matter differentiation is preserved. No extra-axial fluid collection is seen. Thoracic aorta: Visualized portions of the thoracic aorta are normal in caliber. The aortic arch demonstrates standard 3-vessel anatomy. Right carotid arterial system: The right common carotid artery is widely patent, as are the right internal and external carotid arteries. Left carotid arterial system: The left common carotid artery is widely patent, as are the left internal and external carotid arteries. Minimal calcified plaque is seen in the carotid bulb. Vertebral arteries: The right vertebral artery is widely patent. The proximal and mid portions of the T11 are patent. 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 This is reconstituted at the skull base. Subclavian arteries: Widely patent bilaterally. Intracranial vasculature: The internal carotid arteries are patent at the skull base, as are the anterior and middle cerebral arteries bilaterally. The vert ebrobasilar system and posterior cerebral arteries are widely patent. There are bilateral posterior communicating arteries. The right vertebral artery is dominant. There is no aneurysm, high-grade stenosis, or focal vessel cut off seen throughout the intracranial circulation. Jugular veins: Patent bilaterally. Dural sinuses: Patent. Lung apices: Partially visualized upper lobe lung parenchyma appears clear. Soft tissues: The visualized pharyngeal soft tissues are normal in appearance noting angiographic phase technique. The oropharyngeal airway appears widely patent. The thyroid gland is heterogeneous. The salivary glands are normal in appearance. No cervical lymphadenopathy is seen. Skeletal structures: The skeletal structures are osteopenic. The calvarium appears intact. The cervical spine is maintained noting moderate multilevel cervical spondylosis. There are numerous osteolytic foci throughout the calvarium and cervical spine which are new from previous and typical for bony metastatic disease. Orbits: The bony orbits are intact. Orbital contents are normal as visualized. Sinuses and mastoids: The paranasal sinuses are clear. The mastoid air cells are well pneumatized. IMPRESSION: 1. There is no hemorrhage, mass effect, or evidence of acute territorial ischemia by CT criteria. 2. Unremarkable CT angiogram of the brain. 3. 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 This is reconstituted at the skull base. 4. Otherwise unremarkable CT angiogram of the neck. The carotid arteries and right vertebral artery are widely patent. 5. 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 ACT 112: Negative or not required by law. Electronically signed by: Rishi Kwon M.D. 04/26/2022 12:12 AM Neck CTA 04/25/22 22:[address] OF THE BRAIN; CT ANGIOGRAM OF THE BRAIN; CT ANGIOGRAM OF THE NECK CLINICAL HISTORY: Strokelike symptoms. COMPARISON STUDY: CT of the brain dated 01/29/2020. PET CT dated 05/01/2021. MR angiogram of the head and neck dated 04/15/2017. TECHNIQUE: Unenhanced axial CT scan of the brain is performed. Subsequently, following the IV administration of 106 of Optiray 320, CT angiogram of the head and neck was performed from the aortic arch to the vertex. Images are reviewed in the axial, sagittal, and coronal planes. 3-D MIPS images are created and assessed. IV contrast was administered without complication. All measurements were calculated based on NASCET criteria. A dose lowering technique was utilized adhering to the principles of ALARA. FINDINGS: Brain parenchyma: There is age-related involutional change noting mild subcortical and periventricular microangiopathic disease. There is no hemorrhage, mass effect, or evidence of acute territorial ischemia by CT criteria. There is no evidence of enhancing mass lesion on the angiogram phase images. The ventricles, sulci, and cisterns are normal in configuration. Myrick- white matter differentiation is preserved. No extra-axial fluid collection is seen. Thoracic aorta: Visualized portions of the thoracic aorta are normal in caliber. The aortic arch demonstrates standard 3-vessel anatomy. Right carotid arterial system: The right common carotid artery is widely patent, as are the right internal and external carotid arteries. Left carotid arterial system: The left common carotid artery is widely patent, as are the left internal and external carotid arteries. Minimal calcified plaque is seen in the carotid bulb. Vertebral arteries: The right vertebral artery is widely patent. The proximal and mid portions of the T11 are patent. 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 This is reconstituted at the skull base. Subclavian arteries: Widely patent bilaterally. Intracranial vasculature: The internal carotid arteries are patent at the skull base, as are the anterior and middle cerebral arteries bilaterally. The vertebrobasilar system and posterior cerebral arteries are widely patent. There are bilateral posterior communicating arteries. The right vertebral artery is dominant. There is no aneurysm, high-grade stenosis, or focal vessel cut off seen throughout the intracranial circulation. Jugular veins: Patent bilaterally. Dural sinuses: Patent. Lung apices: Partially visualized upper lobe lung parenchyma appears clear. Soft tissues: The visualized pharyngeal soft tissues are normal in appearance noting angiographic phase technique. The oropharyngeal airway appears widely patent. The thyroid gland is heterogeneous. The salivary glands are normal in appearance. No cervical lymphadenopathy is seen. Skeletal structures: The skeletal structures are osteopenic. The calvarium appears intact. The cervical spine is maintained noting moderate multilevel cervical spondylosis. There are numerous osteolytic foci throughout the calvarium and cervical spine which are new from previous and typical for bony metastatic disease. Orbits: The bony orbits are intact. Orbital contents are normal as visualized. Sinuses and mastoids: The paranasal sinuses are clear. The mastoid air cells are well pneumatized. IMPRESSION: 1. There is no hemorrhage, mass effect, or evidence of acute territorial ischemia by CT criteria. 2. Unremarkable CT angiogram of the brain. 3. 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 This is reconstituted at the skull base. 4. Otherwise unremarkable CT angiogram of the neck. The carotid arteries and right vertebral artery are widely patent. 5. 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 ACT 112: Negative or not required by law. Electronically signed by: Rishi Kwon M.D. 04/26/2022 12:12 AM Code Status & VTE Plan VTE Prophylaxis Plan VTE Prophylaxis will be ordered: Yes PG Care Time/CCT Total # of Minutes Spent Total Time Spent with Patient: Total time spent is greater than 50% in coordination of care (as documented) at patient's floor/unit and/or counseling patient: Coding Level of Care Code 11047 Initial Inpt Care Lvl 3 Diagnoses Pneumonia J18.9 Atrial fibrillation with rapid ventricular response I48.91 Elevated LFTs R79.89 History of right breast cancer Z85.3 Depression F32.A
--- NOTE | 2022-04-26 00:27 | CT Scan Report ---
CT ANGIOGRAM OF THE CHEST CLINICAL HISTORY: Strokelike symptoms. Breast cancer. COMPARISON STUDY: Chest x-ray dated 04/25/2022. Chest CT dated 01/29/2020. PET/CT dated 05/01/2021. TECHNIQUE: Following the IV administration of 106 cc of Optiray 320, CT angiogram of the chest was pe rformed from the upper abdomen to the thoracic inlet utilizing the pulmonary embolus protocol. Images are reviewed in the axial, sagittal, and coronal planes. 3-D MIPS images are created and assessed. I V contrast was administered without complication. A dose lowering technique was utilized adhering to the principles of ALARA. The examination is degraded by motion artifact. CT DOSE: 1103.06 mGy.cm FINDINGS: Thyroid: Normal in size and heterogeneous in attenuation. Thoracic aorta: There is moderate atherosclerotic calcification of the thoracic aorta, which is bentley l in caliber and demonstrates (arch anatomy. No dissection is seen. Pulmonary vasculature: The pulmonary trunk is normal in caliber. There are no filling defects identif ied in main, lobar, or segmental pulmonary branches to suggest pulmonary embolus. Evaluation of the p eripheral branches is degraded by motion artifact. Heart: The heart is enlarged and without pericardial effusion. Lungs and pleural spaces: Evaluation of the lung parenchyma is significantly degraded by motion artif act. The trachea and central airways are clear. Dense airspace consolidation is seen at both lung bas es, right greater than left. No pleural effusion is identified. Mediastinum: There is no mediastinal lymphadenopathy. Cynthia: Clear. Axillae: There is no axillary lymphadenopathy. Upper abdomen: Pneumobilia is noted. There is a large perfusion defect suggested in the central splee n. Metastatic disease is suggested in the right hepatic lobe. Skeletal structures: The skeletal structures are osteopenic. Degenerative change and hyperkyphosis is noted throughout the thoracic spine. Extensive osteolytic metastatic disease is noted. There is a mo derate compression deformity of T11 which is new from previous. Soft tissues: The patient is cachectic. IMPRESSION: 1. There is no evidence of pulmonary embolus in the main, lobar, or segmental pulmonary arteries. 2. Multifocal airspace consolidation is seen at the lung bases, typical for pneumonia/aspiration pneu monitis. Clinical correlation will be required and radiographic follow-up to resolution is recommende d. 3. 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 4. A compression deformity of T11 is new from previous and may be acute to subacute. Correlate for po int tenderness. 5. There is evidence of right lobe hepatic metastatic disease. 6. A large perfusion defect in the central spleen is nonspecific and a splenic infarct is not exclude d. 7. Cardiomegaly. 8. Additional findings as above. ACT 112: Negative or not required by law. Electronically signed by: Rishi Kwon M.D. 04/26/2022 12:25 AM
[2022-04-26] MEDS ORDERED: ALBUT/IPRATROP 3MG/0.5MG NEB 3 ML VIAL NEB STA (00:44)
[2022-04-26] MEDS ORDERED: SODIUM CHLORIDE 0.9% 1000ML 1,000 ML IV ONE (00:44)
[2022-04-26] MEDS ORDERED: dilTIAZem HCl 5 MG/ML 5 ML VIAL IV STA (00:51)
[2022-04-26] MEDS ORDERED: STAT IV Infusion **Titration per Protocol STA (01:03)
[2022-04-26] MEDS ORDERED: dilTIAZem HCL 125 MG in DEXTROSE 5% 100 ML IV SCH (01:15)
--- NOTE | 2022-04-26 01:47 | Emergency Department Note ---
History of Present Illness General Chief complaint: Shortness of Breath/Dyspnea Stated complaint: PNEUMONIA, SOB Time Seen by Provider: 04/25/22 22:01 History of Present Illness Maximum Pain Intensity: 5 This 81-year-old with known metastatic cancer presents to the ER complaining of worsening shortness of breath is been on Levaquin for pneumonia who has been acting more confused per family Location: Generalized Quality: Short of breath Severity: Moderate Duration: Past few days Timing: Started few days ago Context: Patient was concerned and came in Modifying factors: better with rest; worse with activity Patient denies of cough, congestion, shortness of breath and generalized illness. Daughter states has been acting more confused with slurred speech and not acting right. Patient is a full code. She is currently on chemotherapy for metastatic breast cancer. Home Medications Medication Instructions Recorded Confirmed Type aspirin 81 mg tablet,delayed 81 mg PO QAM 07/02/18 04/26/22 History release polyethylene glycol 3350 17 gram 17 g PO DAILY PRN constipation #30 04/10/21 04/26/22 Rx oral powder packet (Miralax) ea calcitonin (salmon) 200 1 spray intranasal (ALT) DAILY 04/25/22 04/26/22 History unit/actuation nasal spray duloxetine 60 mg capsule,delayed 60 mg PO DAILY 04/25/22 04/26/22 History release furosemide 40 mg tablet 80 mg PO QAM 04/25/22 04/26/22 History hydromorphone 2 mg tablet 2 - 4 mg PO Q4 PRN Pain 04/25/22 04/26/22 History levofloxacin 500 mg tablet 500 mg PO DAILY 04/25/22 04/26/22 History methadone 5 mg tablet 5 mg PO BID 04/25/22 04/26/22 History multivitamin-ferrous 1 tab PO DAILY 04/25/22 04/26/22 History fumarate-folic acid 18 mg-400 mcg tablet (Sentry) pantoprazole 40 mg tablet,delayed 40 mg PO DAILY 04/25/22 04/26/22 History release prochlorperazine maleate 5 mg 5 mg PO Q6 PRN Nausea 04/25/22 04/25/22 History tablet sennosides 8.6 mg tablet (senna) 17 mg PO BID 04/25/22 04/26/22 History vit C 250 mg-vit E 90 mg-zinc 40 1 tab PO BID 04/26/22 04/26/22 History mg-copper 1 [id number] capsule (PreserVision AREDS-2) vitamin B complex 1 tab PO DAILY 04/26/22 04/26/22 History Allergies Allergy/AdvReac Type Severity Reaction Status Date / Time amoxicillin Allergy Unknown . Verified 04/26/22 00:54 doxycycline Allergy Unknown . Verified 04/26/22 00:54 tetracycline Allergy Unknown Unknown Verified 04/26/22 00:54 prednisone AdvReac Mild LOSES HER Verified 04/26/22 00:54 TASTE Past Med/Surg History Medical History Acute anxiety Alcohol abuse Chronic back pain Chronic neuropathic pain Herniated disc History of right breast cancer S/P LUMPECTOMY, RADIATION Hyperlipidemia Marijuana abuse Osteoarthritis Spinal stenosis Severe at L4-5 Tinnitus Transient ischemic attack (TIA) X 2 (03/2017 & 09/2017) Surgical History History of breast biopsy History of colonoscopy History of dilatation and curettage Hx of lumpectomy RT BREAST Family History Aunt Breast cancer Social History Smoking Status: Former smoker Tobacco Type: Cigarettes Second Hand Exposure: No; Do You Dip or Chew Tobacco: No; Tobacco Cessation Education Requested by Patient: No Hx Alcohol Use: Yes Alcohol type: wine Hx Substance Use: Yes Last Used Substance Other:: 1 WEEK AGO Preferred Language: Jordanian Communication Ability: 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 Beliefs That Will Affect Care: None marital status: / Current Living Situation: Alone Current Living Situation Comment: HOUSEMATE How many Children do You have: 2 Other Information That Helps Us Care for You: No Feels Safe at Home: Yes Safety Concerns: Feels Safe At This Time during the past year weight has: decreased > 10 lbs Assistive Devices: Glasses Review of Systems A total of 10 systems reviewed and were otherwise negative Physical Exam Vital Signs Vital Signs - 24 hr 04/25/22 20:54 04/25/22 22:19 04/25/22 22:19 Temperature 36.1 C L Temperature Source Temporal Artery Scan Pulse Rate 97 H 102 H Pulse Rate [Apical] Pulse Rhythm [Apical] Pulse Strength [Apical] Respiratory Rate 26 H 24 Respiratory Effort / Characteristics Spontaneous Respiratory Depth Blood Pressure 106/58 L Blood Pressure [Left Arm] Blood Pressure Mean 74 Blood Pressure Mean [Left Arm] Pulse Oximetry 98 85 L 92 Oxygen Delivery Method Room Air Room Air Oxymask Oxygen Flow Rate 0 7 Sepsis New/Unexplained Change in Mental Status N/A Sepsis Action Taken by Nursing No Action Required Oxygen Flow Rate - Titration 2 Pulse Oximetry Post Tiitration 88 L 04/25/22 22:32 04/25/22 23:24 04/25/22 23:25 Temperature 36.4 C L Temperature Source Temporal Artery Scan Pulse Rate Pulse Rate [Apical] 102 H Pulse Rhythm [Apical] Pulse Strength [Apical] Respiratory Rate 21 Respiratory Effort / Characteristics Non-Labored Spontaneous Respiratory Depth Blood Pressure Blood Pressure [Left Arm] 125/77 Blood Pressure Mean Blood Pressure Mean [Left Arm] 93 Pulse Oximetry 100 96 Oxygen Delivery Method Oxymask Nasal Cannula Oxygen Flow Rate 5 2 Sepsis New/Unexplained Change in Mental Status Sepsis Action Taken by Nursing Oxygen Flow Rate - Titration Pulse Oximetry Post Tiitration 04/25/22 23:32 Temperature Temperature Source Pulse Rate Pulse Rate [Apical] 95 H Pulse Rhythm [Apical] Regular Pulse Strength [Apical] Normal Respiratory Rate 24 Respiratory Effort / Characteristics Non-Labored Spontaneous Respiratory Depth Normal Blood Pressure Blood Pressure [Left Arm] 107/58 L Blood Pressure Mean Blood Pressure Mean [Left Arm] 74 Pulse Oximetry 100 Oxygen Delivery Method Aerosol Mask Oxygen Flow Rate Sepsis New/Unexplained Change in Mental Status Sepsis Action Taken by Nursing Oxygen Flow Rate - Titration Pulse Oximetry Post Tiitration VITALS: Vitals are noted on the nurse's note and reviewed by myself. Vital signs respiratory rate 26, stable blood pressure GENERAL: Elderly female working to breathe, SKIN: The skin was without rashes, erythema, edema, or bruising. There is no tenting of the skin. Capillary reflex less than 2 seconds. HEAD: Normocephalic atraumatic. EARS: External auditory canals clear, tympanic membranes pearly myrick without erythema or effusion bilaterally. EYES: Pupils equal round and reactive to light and accommodation. Conjunctivae without injection, sclerae without icterus. Extraocular movements intact. NOSE: Patent, turbinates without inflammation or discharge. No sinus tenderness. MOUTH: Mucous membranes dry pharynx without erythema or exudate. Uvula midline. Airway patent. Tongue does not deviate. NECK: Supple without nuchal rigidity. No lymphadenopathy. No thyromegaly. Cervical spine is nontender. No JVD. HEART: Regular rate and rhythm LUNGS: Mild diffuse inspiratory and end expiratory wheezes, rales or rhonchi. No retractions or accessory muscle use. ABDOMEN: Positive bowel sounds x 4. Normal tympanic percussion. Soft, nontender, without masses or organomegaly. Huang sign negative. No guarding or rebound tenderness. No CVA tenderness MUSCULOSKELETAL: No muscle atrophy, erythema, or edema noted. NEURO: Patient was alert and oriented to person place and time. Normal s ensation to light and sharp touch. No focal neurological deficits. Course Administered Medications Aspirin (Aspirin 81 Mg Ectab) 81 mg PO QAM [facility] Stop: 05/26/22 08:59 Last Admin: 04/26/22 10:13 Dose: Not Given Documented By: MAYUR Calcitonin Atwood (Calcitonin Atwood Na 200 Iu/Ac 3.7 Ml Btl) 1 sprays NA BID [facility] Stop: 05/26/22 08:59 Last Admin: 04/26/22 21:26 Dose: 1 sprays Documented By: Admin: 04/26/22 09:25 Dose: 1 sprays Documented By: MAYUR Duloxetine HCl (Duloxetine Hcl 60 Mg Cap) 60 mg PO DAILY [facility] Stop: 05/26/22 08:59 Last Admin: 04/26/22 10:13 Dose: Not Given Documented By: MAYUR Enoxaparin Sodium (Enoxaparin Inj 30 Mg/0.3 Ml Syr) 30 mg SQ Q24H [facility] Stop: 05/26/22 05:59 Last Admin: 04/26/22 06:27 Dose: 30 mg Documented By: SISI Guaifenesin (Guaifenesin 600 Mg Tabcr) 600 mg PO Q12 [facility] Stop: 05/26/22 08:59 Last Admin: 04/26/22 22:18 Dose: Not Given Documented By: Admin: 04/26/22 10:13 Dose: Not Given Documented By: MAYUR Diltiazem HCl 125 mg/ Dextrose 125 mls @ 0 mls/hr IV .Q0M [facility]; Protocol Stop: 05/26/22 01:14 Last Titration: 04/26/22 05:48 Dose: 0 mg/hr, 0 mls/hr Documented By: SISI Co-signed By: MONICA Admin: 04/26/22 01:37 Dose: 5 mg/hr, 5 mls/hr Documented By: VALENTÍN Co-signed By: ASHLYN Ceftriaxone Sodium 1,000 mg/ (Dextrose) 50 mls @ 100 mls/hr IV Q24H [facility]; Protocol Stop: 05/03/22 03:14 Last Admin: 04/27/22 02:52 Dose: 100 mls/hr Documented By: Infusion: 04/26/22 03:56 Dose: 0 mls/hr Documented By: Admin: 04/26/22 03:26 Dose: 100 mls/hr Documented By: SISI Potassium Chloride/Sodium Chloride (Normal Saline W/20 Meq Kcl) 20 meq in 1,000 mls @ 100 mls/hr IV .Q10H [facility]; Protocol Stop: 05/26/22 08:14 Last Admin: 04/26/22 19:57 Dose: 100 mls/hr Documented By: Infusion: 04/26/22 19:55 Dose: 100 mls/hr Documented By: Admin: 04/26/22 09:55 Dose: 100 mls/hr Documented By: MAYUR Methadone HCl (Methadone Hcl 5 Mg Tab) 5 mg PO BID [facility] Stop: 05/10/22 08:59 Last Admin: 04/26/22 21:30 Dose: 5 mg Documented By: Admin: 04/26/22 10:13 Dose: Not Given Documented By: MAYUR Multi-Ingredient Mouthwash/Gargle (First - Mouthwash Blm 119 Ml) 5 ml PO TID [facility] Stop: 05/26/22 08:59 Last Admin: 04/26/22 21:30 Dose: 5 ml Documented By: Admin: 04/26/22 12:40 Dose: 5 ml Documented By: Admin: 04/26/22 10:13 Dose: Not Given Documented By: MAYUR Pantoprazole Sodium (Pantoprazole 40 Mg Tab) 40 mg PO DAILY [facility] Stop: 05/26/22 08:59 Last Admin: 04/26/22 10:13 Dose: Not Given Documented By: MAYUR Discontinued Medications Albuterol (Albut/Ipratrop 3mg/0.5mg Neb 3 Ml Vial) 3 ml NEB NOW STA; Protocol Stop: 04/25/22 22:34 Last Admin: 04/25/22 22:41 Dose: 3 ml Documented By: ISREAL Albuterol (Albut/Ipratrop 3mg/0.5mg Neb 3 Ml Vial) 3 ml NEB NOW STA; Protocol Stop: 04/26/22 00:45 Last Admin: 04/26/22 00:58 Dose: 3 ml Documented By: ROS Diltiazem HCl (Diltiazem Hcl 5 Mg/Ml 5 Ml Vial) 10 mg IV NOW STA Stop: 04/26/22 00:52 Last Admin: 04/26/22 00:55 Dose: 5 mg Documented By: VALENTÍN Co-signed By: CORINNE Meropenem 1,000 mg/ Syringe 20 mls @ 2 mls/min IV NOW STA; Protocol Stop: 04/25/22 22:13 Last Admin: 04/25/22 23:31 Dose: 2 mls/min Documented By: VALENTÍN Sodium Chloride (Nss) 500 mls @ 999 mls/hr IV .Q31M ONE Stop: 04/25/22 22:51 Last Infusion: 04/25/22 23:47 Dose: 0 mls/hr Documented By: Admin: 04/25/22 22:35 Dose: 999 mls/hr Documented By: ISREAL Sodium Chloride (Nss 1000ml) 1,000 mls @ 999 mls/hr IV .Q1H1M ONE Stop: 04/26/22 01:44 Last Infusion: 04/26/22 01:39 Dose: 0 mls/hr Documented By: Admin: 04/26/22 01:09 Dose: 999 mls/hr Documented By: VALENTÍN Potassium Chloride 20 meq/ (Lactated Ringer's) 1,010 mls @ 100 mls/hr IV .Q10H6M [facility] Stop: 04/26/22 23:05 Last Infusion: 04/26/22 10:14 Dose: 0 mls/hr Documented By: Admin: 04/26/22 03:26 Dose: 100 mls/hr Documented By: SISI Azithromycin 500 mg/ Dextrose 255 mls @ 127.5 mls/hr IV NOW ONE Stop: 04/26/22 05:29 Last Infusion: 04/26/22 05:26 Dose: 0 mls/hr Documented By: Admin: 04/26/22 03:26 Dose: 127.5 mls/hr Documented By: SISI Sodium Chloride (Nss 1000ml) 250 mls @ 999 mls/hr IV .Q16M ONE Stop: 04/26/22 08:27 Last Infusion: 04/26/22 10:14 Dose: 0 mls/hr Documented By: Admin: 04/26/22 09:20 Dose: 999 mls/hr Documented By: MAYUR Ioversol (Optiray 320 500ml) 106 ml IV ONCE ONE Stop: 04/25/22 23:14 Last Admin: 04/25/22 23:13 Dose: 106 ml Documented By: DELORES Miscellaneous (Stat Iv Infusion Titration Per Protocol) 1 each N/A NOW STA Stop: 04/26/22 01:04 Last Admin: 04/26/22 02:00 Dose: 1 each Documented By: VALENTÍN Critical Care Time I have personally spent 35 minutes of critical care time in the direct management of this patient. This includes bedside care, interpretation of diagnostic studies, and testing, discussion with consultants, patient, and family members, and other required patient management activities. This 35 minutes is in excess of all separately billable procedures. Medical Decision Making Medical Records Attestation: I reviewed the patient's medical records. Home Medications Current Medication List: was personally reviewed by me Laboratory Data Attestation: I reviewed the patient's lab results. Result diagrams: 04/25/22 22:00 04/25/22 22:00 Lab Results 04/25/22 04/25/22 04/25/22 Range/Units 22:00 22:00 22:00 WBC 16.64 H (4.8-10.8) K/ul RBC 2.96 L (3.93-5.22) M/uL Hgb 11.2 L (12.0-16.0) g/dl Hct 30.5 L (34.1-44.9) % MCV 103.0 H (80.0-100.0) fL MCH 37.8 H (25.0-34.0) pg MCHC 36.7 H (32.0-36.0) g/dL RDW Std Deviation 73.0 H (36.4-46.3) fL RDW Coeff of Marques 19.4 H (11.5-14.5) % Plt Count 225 (130-400) K/uL MPV 9.8 (9.4-12.3) fL Immature Gran % (Auto) 4.8 % Neut % (Auto) 87.5 % Lymph % (Auto) 2.8 % [place] % (Auto) 4.3 % Eos % (Auto) 0.1 % Baso % (Auto) 0.5 % Neut # (Auto) 14.58 H (1.4-6.5) K/uL Lymph # (Auto) 0.46 L (1.2-3.4) K/uL [place] # (Auto) 0.71 (0.24-0.82) K/uL Eos # (Auto) 0.01 (0-0.50) K/uL Baso # (Auto) 0.08 (0-0.2) K/uL Immature Gran # (Auto) 0.80 H (0.00-0.02) K/uL Absolute Nucleated RBC 0.09 H (0-0) K/uL Nucleated RBC % (auto) 0.5 % Echinocytes 1+ PT 13.5 H (9.0-12.0) Seconds INR 1.3 H (0.9-1.1) APTT 29.4 (21.0-31.0) Seconds PTT Ratio 1.1 VBG pH (7.36-7.41) VBG pCO2 (38-50) mmHg VBG pO2 mmHg VBG HCO3 mmol/L VBG O2 Saturation % VBG Base Excess mEq/L Sodium 134 L (136-145) mmol/L Potassium 3.2 L (3.5-5.1) mmol/L Chloride 93 L (98-107) mmol/L Carbon Dioxide 31 (21-32) mmol/L Anion Gap 10 (3-11) BUN 59 H (6-23) mg/dl Creatinine 0.97 (0.6-1.2) mg/dl Est Cr Clr Drug Dosing 37.1 ml/min Est GFR ( Amer) 64.4 ml/min Est GFR (Non-Af Amer) 55.5 ml/min BUN/Creatinine Ratio 60.8 H (10-20) Glucose 97 (70-99(Fasting)) mg/dl Calcium 9.0 (8.5-10.1) mg/dl Magnesium 2.3 (1.7-2.4) mg/dl Total Bilirubin 1.4 H (0.2-1.0) mg/dl AST 85 H (13-39) U/L ALT 47 (7-52) U/L Alkaline Phosphatase 163 H (34-104) U/L Troponin I High Sens (0-14) pg/ml B-Natriuretic Peptide (0-100) pg/ml Total Protein 6.5 (6.0-8.3) gm/dl Albumin 3.0 L (3.4-5.0) gm/dl Globulin 3.5 (2.5-4.0) gm/dl Albumin/Globulin Ratio 0.9 (0.9-2) Procalcitonin (0-0.5) ng/ml Adenovirus (PCR) (NotDetected) B. pertussis DNA (PCR) (NotDetected) B.parapertussis DNA PCR (NotDetected) C. pneumoniae DNA (PCR) (NotDetected) Coronavirus OC43 (PCR) (NotDetected) Coronavirus HKU1 (PCR) (NotDetected) Coronavirus 229E (PCR) (NotDetected) SARS-CoV-2 (PCR) (NotDetected) Coronavirus NL63 (PCR) (NotDetected) Human Metapneumovir PCR (NotDetected) Influenza Type A (PCR) (NotDetected) Influenza Type B (PCR) (NotDetected) M. pneumoniae (PCR) (NotDetected) Parainfluenza 1 (PCR) (NotDetected) Parainfluenza 2 (PCR) (NotDetected) Parainfluenza 3 (PCR) (NotDetected) Parainfluenza 4 (PCR) (NotDetected) RSV (PCR) (NotDetected) Entero/Rhino (PCR) (NotDetected) 04/25/22 04/25/22 04/25/22 Range/Units 22:00 22:00 22:35 WBC (4.8-10.8) K/ul RBC (3.93-5.22) M/uL Hgb (12.0-16.0) g/dl Hct (34.1-44.9) % MCV (80.0-100.0) fL MCH (25.0-34.0) pg MCHC (32.0-36.0) g/dL RDW Std Deviation (36.4-46.3) fL RDW Coeff of Marques (11.5-14.5) % Plt Count (130-400) K/uL MPV (9.4-12.3) fL Immature Gran % (Auto) % Neut % (Auto) % Lymph % (Auto) % [place] % (Auto) % Eos % (Auto) % Baso % (Auto) % Neut # (Auto) (1.4-6.5) K/uL Lymph # (Auto) (1.2-3.4) K/uL [place] # (Auto) (0.24-0.82) K/uL Eos # (Auto) (0-0.50) K/uL Baso # (Auto) (0-0.2) K/uL Immature Gran # (Auto) (0.00-0.02) K/uL Absolute Nucleated RBC (0-0) K/uL Nucleated RBC % (auto) % Echinocytes PT (9.0-12.0) Seconds INR (0.9-1.1) APTT (21.0-31.0) Seconds PTT Ratio VBG pH (7.36-7.41) VBG pCO2 (38-50) mmHg VBG pO2 mmHg VBG HCO3 mmol/L VBG O2 Saturation % VBG Base Excess mEq/L Sodium (136-145) mmol/L Potassium (3.5-5.1) mmol/L Chloride (98-107) mmol/L Carbon Dioxide (21-32) mmol/L Anion Gap (3-11) BUN (6-23) mg/dl Creatinine (0.6-1.2) mg/dl Est Cr Clr Drug Dosing ml/min Est GFR ( Amer) ml/min Est GFR (Non-Af Amer) ml/min BUN/Creatinine Ratio (10-20) Glucose (70-99(Fasting)) mg/dl Calcium (8.5-10.1) mg/dl Magnesium Cancelled (1.7-2.4) mg/dl Total Bilirubin (0.2-1.0) mg/dl AST (13-39) U/L ALT (7-52) U/L Alkaline Phosphatase (34-104) U/L Troponin I High Sens (0-14) pg/ml B-Natriuretic Peptide (0-100) pg/ml Total Protein (6.0-8.3) gm/dl Albumin (3.4-5.0) gm/dl Globulin (2.5-4.0) gm/dl Albumin/Globulin Ratio (0.9-2) Procalcitonin 8.76 H (0-0.5) ng/ml Adenovirus (PCR) Not Detected (NotDetected) B. pertussis DNA (PCR) Not Detected (NotDetected) B.parapertussis DNA PCR Not Detected (NotDetected) C. pneumoniae DNA (PCR) Not Detected (NotDetected) Coronavirus OC43 (PCR) Not Detected (NotDetected) Coronavirus HKU1 (PCR) Not Detected (NotDetected) Coronavirus 229E (PCR) Not Detected (NotDetected) SARS-CoV-2 (PCR) Not Detected (NotDetected) Coronavirus NL63 (PCR) Not Detected (NotDetected) Human Metapneumovir PCR Not Detected (NotDetected) Influenza Type A (PCR) Not Detected (NotDetected) Influenza Type B (PCR) Not Detected (NotDetected) M. pneumoniae (PCR) Not Detected (NotDetected) Parainfluenza 1 (PCR) Not Detected (NotDetected) Parainfluenza 2 (PCR) Not Detected (NotDetected) Parainfluenza 3 (PCR) Not Detected (NotDetected) Parainfluenza 4 (PCR) Not Detected (NotDetected) RSV (PCR) Not Detected (NotDetected) Entero/Rhino (PCR) Not Detected (NotDetected) 04/25/22 04/25/22 04/25/22 Range/Units 22:44 22:44 22:44 WBC (4.8-10.8) K/ul RBC (3.93-5.22) M/uL Hgb (12.0-16.0) g/dl Hct (34.1-44.9) % MCV (80.0-100.0) fL MCH (25.0-34.0) pg MCHC (32.0-36.0) g/dL RDW Std Deviation (36.4-46.3) fL RDW Coeff of Marques (11.5-14.5) % Plt Count (130-400) K/uL MPV (9.4-12.3) fL Immature Gran % (Auto) % Neut % (Auto) % Lymph % (Auto) % [place] % (Auto) % Eos % (Auto) % Baso % (Auto) % Neut # (Auto) (1.4-6.5) K/uL Lymph # (Auto) (1.2-3.4) K/uL [place] # (Auto) (0.24-0.82) K/uL Eos # (Auto) (0-0.50) K/uL Baso # (Auto) (0-0.2) K/uL Immature Gran # (Auto) (0.00-0.02) K/uL Absolute Nucleated RBC (0-0) K/uL Nucleated RBC % (auto) % Echinocytes PT (9.0-12.0) Seconds INR (0.9-1.1) APTT (21.0-31.0) Seconds PTT Ratio VBG pH 7.47 H (7.36-7.41) VBG pCO2 46 (38-50) mmHg VBG pO2 29 mmHg VBG HCO3 34 mmol/L VBG O2 Saturation < 60.0 % VBG Base Excess 8.6 mEq/L Sodium (136-145) mmol/L Potassium (3.5-5.1) mmol/L Chloride (98-107) mmol/L Carbon Dioxide (21-32) mmol/L Anion Gap (3-11) BUN (6-23) mg/dl Creatinine (0.6-1.2) mg/dl Est Cr Clr Drug Dosing ml/min Est GFR ( Amer) ml/min Est GFR (Non-Af Amer) ml/min BUN/Creatinine Ratio (10-20) Glucose (70-99(Fasting)) mg/dl Calcium (8.5-10.1) mg/dl Magnesium (1.7-2.4) mg/dl Total Bilirubin (0.2-1.0) mg/dl AST (13-39) U/L ALT (7-52) U/L Alkaline Phosphatase (34-104) U/L Troponin I High Sens 18.4 H (0-14) pg/ml B-Natriuretic Peptide 325 H (0-100) pg/ml Total Protein (6.0-8.3) gm/dl Albumin (3.4-5.0) gm/dl Globulin (2.5-4.0) gm/dl Albumin/Globulin Ratio (0.9-2) Procalcitonin (0-0.5) ng/ml Adenovirus (PCR) (NotDetected) B. pertussis DNA (PCR) (NotDetected) B.parapertussis DNA PCR (NotDetected) C. pneumoniae DNA (PCR) (NotDetected) Coronavirus OC43 (PCR) (NotDetected) Coronavirus HKU1 (PCR) (NotDetected) Coronavirus 229E (PCR) (NotDetected) SARS-CoV-2 (PCR) (NotDetected) Coronavirus NL63 (PCR) (NotDetected) Human Metapneumovir PCR (NotDetected) Influenza Type A (PCR) (NotDetected) Influenza Type B (PCR) (NotDetected) M. pneumoniae (PCR) (NotDetected) Parainfluenza 1 (PCR) (NotDetected) Parainfluenza 2 (PCR) (NotDetected) Parainfluenza 3 (PCR) (NotDetected) Parainfluenza 4 (PCR) (NotDetected) RSV (PCR) (NotDetected) Entero/Rhino (PCR) (NotDetected) Imaging Data Attestation: I personally reviewed and interpreted this imaging study as follows: Radiologist's Impression: Chest X-Ray 04/25/22 21:02 SINGLE VIEW CHEST CLINICAL HISTORY: Dyspnea FINDINGS: An AP, portable, upright chest radiograph is compared to study dated 04/22/2022. Correlation is made with chest CT dated 01/29/2020. The examination is degraded by portable technique and patient rotation. The heart is enlarged noting atherosclerotic calcification of the thoracic aorta. The pulmonary vasculature is noncongested. Airspace consolidation is present in both lung bases. A small right pleural effusion is noted. No pneumothorax is seen. The skeletal structures are osteopenic. There are chronic rib fractures. A bile duct stent is noted in the right upper quadrant. IMPRESSION: 1. Bibasilar airspace consolidation is typical for pneumonia/aspiration pneumonitis. Clinical correlation will be required and radiographic follow-up to resolution is recommended. 2. Small right pleural effusion. 3. Cardiomegaly without radiographic evidence of congestive failure.. ACT 112: Negative or not required by law. Electronically signed by: Rishi Kwon M.D. 04/25/2022 10:43 PM Chest CTA 04/25/22 22:04 CT ANGIOGRAM OF THE CHEST CLINICAL HISTORY: Strokelike symptoms. Breast cancer. COMPARISON STUDY: Chest x-ray dated 04/25/2022. Chest CT dated 01/29/2020. PET/CT dated 05/01/2021. TECHNIQUE: Following the IV administration of 106 cc of Optiray 320, CT a ngiogram of the chest was performed from the upper abdomen to the thoracic inlet utilizing the pulmonary embolus protocol. Images are reviewed in the axial, sagittal, and coronal planes. 3-D MIPS images are created and assessed. IV contrast was administered without complication. A dose lowering technique was utilized adhering to the principles of ALARA. The examination is degraded by motion artifact. CT DOSE: 1103.06 mGy.cm FINDINGS: Thyroid: Normal in size and heterogeneous in attenuation. Thoracic aorta: There is moderate atherosclerotic calcification of the thoracic aorta, which is normal in caliber and demonstrates (arch anatomy. No dissection is seen. Pulmonary vasculature: The pulmonary trunk is normal in caliber. There are no filling defects identified in main, lobar, or segmental pulmonary branches to suggest pulmonary embolus. Evaluation of the peripheral branches is degraded by motion artifact. Heart: The heart is enlarged and without pericardial effusion. Lungs and pleural spaces: Evaluation of the lung parenchyma is significantly degraded by motion artifact. The trachea and central airways are clear. Dense airspace consolidation is seen at both lung bases, right greater than left. No pleural effusion is identified. Mediastinum: There is no mediastinal lymphadenopathy. Cynthia: Clear. Axillae: There is no axillary lymphadenopathy. Upper abdomen: Pneumobilia is noted. There is a large perfusion defect suggested in the central spleen. Metastatic disease is suggested in the right hepatic lobe. Skeletal structures: The skeletal structures are osteopenic. Degenerative change and hyperkyphosis is noted throughout the thoracic spine. Extensive osteolytic metastatic disease is noted. There is a moderate compression deformity of T11 which is new from previous. Soft tissues: The patient is cachectic. IMPRESSION: 1. There is no evidence of pulmonary embolus in the main, lobar, or segmental pulmonary arteries. 2. Multifocal airspace consolidation is seen at the lung bases, typical for pneumonia/aspiration pneumonitis. Clinical correlation will be required and radiographic follow-up to resolution is recommended. 3. 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 4. A compression deformity of T11 is new from previous and may be acute to subacute. Correlate for point tenderness. 5. There is evidence of right lobe hepatic metastatic disease. 6. A large perfusion defect in the central spleen is nonspecific and a splenic infarct is not excluded. 7. Cardiomegaly. 8. Additional findings as above. ACT 112: Negative or not required by law. Electronically signed by: Rishi Kwon M.D. 04/26/2022 12:[address] 04/25/22 22:[address] OF THE BRAIN; CT ANGIOGRAM OF THE BRAIN; CT ANGIOGRAM OF THE NECK CLINICAL HISTORY: Strokelike symptoms. COMPARISON STUDY: CT of the brain dated 01/29/2020. PET CT dated 05/01/2021. MR angiogram of the head and neck dated 04/15/2017. TECHNIQUE: Unenhanced axial CT scan of the brain is performed. Subsequently, following the IV administration of 106 of Optiray 320, CT angiogram of the head and neck was performed from the aortic arch to the vertex. Images are reviewed in the axial, sagittal, and coronal planes. 3-D MIPS images are created and assessed. IV contrast was administered without complication. All measurements were calculated based on NASCET criteria. A dose lowering technique was utilized adhering to the principles of ALARA. FINDINGS: Brain parenchyma: There is age-related involutional change noting mild subcortical and periventricular microangiopathic disease. There is no hemorrhage , mass effect, or evidence of acute territorial ischemia by CT criteria. There is no evidence of enhancing mass lesion on the angiogram phase images. The ventricles, sulci, and cisterns are normal in configuration. Myrick-white matter differentiation is preserved. No extra-axial fluid collection is seen. Thoracic aorta: Visualized portions of the thoracic aorta are normal in caliber. The aortic arch demonstrates standard 3-vessel anatomy. Right carotid arterial system: The right common carotid artery is widely patent, as are the right internal and external carotid arteries. Left carotid arterial system: The left common carotid artery is widely patent, as are the left internal and external carotid arteries. Minimal calcified plaque is seen in the carotid bulb. Vertebral arteries: The right vertebral artery is widely patent. The proximal and mid portions of the T11 are patent. 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 This is reconstituted at the skull base. Subclavian arteries: Widely patent bilaterally. Intracranial vasculature: The internal carotid arteries are patent at the skull base, as are the anterior and middle cerebral arteries bilaterally. The vertebrobasilar system and posterior cerebral arteries are widely patent. There are bilateral posterior communicating arteries. The right vertebral artery is dominant. There is no aneurysm, high-grade stenosis, or focal vessel cut off seen throughout the intracranial circulation. Jugular veins: Patent bilaterally. Dural sinuses: Patent. Lung apices: Partially visualized upper lobe lung parenchyma appears clear. Soft tissues: The visualized pharyngeal soft tissues are normal in appearance noting angiographic phase technique. The oropharyngeal airway appears widely patent. The thyroid gland is heterogeneous. The salivary glands are normal in appearance. No cervical lymphadenopathy is seen. Skeletal structures: The skeletal structures are osteopenic. The calvarium appears intact. The cervical spine is maintained noting moderate multilevel c ervical spondylosis. There are numerous osteolytic foci throughout the calvarium and cervical spine which are new from previous and typical for bony metastatic disease. Orbits: The bony orbits are intact. Orbital contents are normal as visualized. Sinuses and mastoids: The paranasal sinuses are clear. The mastoid air cells are well pneumatized. IMPRESSION: 1. There is no hemorrhage, mass effect, or evidence of acute territorial ischemia by CT criteria. 2. Unremarkable CT angiogram of the brain. 3. 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 This is reconstituted at the skull base. 4. Otherwise unremarkable CT angiogram of the neck. The carotid arteries and right vertebral artery are widely patent. 5. 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 ACT 112: Negative or not required by law. Electronically signed by: Rishi Kwon M.D. 04/26/2022 12:12 AM Head CTA 04/25/22 22:[address] OF THE BRAIN; CT ANGIOGRAM OF THE BRAIN; CT ANGIOGRAM OF THE NECK CLINICAL HISTORY: Strokelike symptoms. COMPARISON STUDY: CT of the brain dated 01/29/2020. PET CT dated 05/01/2021. MR angiogram of the head and neck dated 04/15/2017. TECHNIQUE: Unenhanced axial CT scan of the brain is performed. Subsequently, following the IV administration of 106 of Optiray 320, CT angiogram of the head and neck was performed from the aortic arch to the vertex. Images are reviewed in the axial, sagittal, and coronal planes. 3-D MIPS images are created and assessed. IV contrast was administered without complication. All measurements were calculated based on NASCET criteria. A dose lowering technique was utilized adhering to the principles of ALARA. FINDINGS: Brain parenchyma: There is age-related involutional change noting mild sub cortical and periventricular microangiopathic disease. There is no hemorrhage, mass effect, or evidence of acute territorial ischemia by CT criteria. There is no evidence of enhancing mass lesion on the angiogram phase images. The ventricles, sulci, and cisterns are normal in configuration. Myrick-white matter differentiation is preserved. No extra-axial fluid collection is seen. Thoracic aorta: Visualized portions of the thoracic aorta are normal in caliber. The aortic arch demonstrates standard 3-vessel anatomy. Right carotid arterial system: The right common carotid artery is widely patent, as are the right internal and external carotid arteries. Left carotid arterial system: The left common carotid artery is widely patent, as are the left internal and external carotid arteries. Minimal calcified plaque is seen in the carotid bulb. Vertebral arteries: The right vertebral artery is widely patent. The proximal and mid portions of the T11 are patent. 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 This is reconstituted at the skull base. Subclavian arteries: Widely patent bilaterally. Intracranial vasculature: The internal carotid arteries are patent at the skull base, as are the anterior and middle cerebral arteries bilaterally. The ve rtebrobasilar system and posterior cerebral arteries are widely patent. There are bilateral posterior communicating arteries. The right vertebral artery is dominant. There is no aneurysm, high-grade stenosis, or focal vessel cut off seen throughout the intracranial circulation. Jugular veins: Patent bilaterally. Dural sinuses: Patent. Lung apices: Partially visualized upper lobe lung parenchyma appears clear. Soft tissues: The visualized pharyngeal soft tissues are normal in appearance noting angiographic phase technique. The oropharyngeal airway appears widely patent. The thyroid gland is heterogeneous. The salivary glands are normal in appearance. No cervical lymphadenopathy is seen. Skeletal structures: The skeletal structures are osteopenic. The calvarium appears intact. The cervical spine is maintained noting moderate multilevel cervical spondylosis. There are numerous osteolytic foci throughout the calvarium and cervical spine which are new from previous and typical for bony metastatic disease. Orbits: The bony orbits are intact. Orbital contents are normal as visualized. Sinuses and mastoids: The paranasal sinuses are clear. The mastoid air cells are well pneumatized. IMPRESSION: 1. There is no hemorrhage, mass effect, or evidence of acute territorial ischemia by CT criteria. 2. Unremarkable CT angiogram of the brain. 3. 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 This is reconstituted at the skull base. 4. Otherwise unremarkable CT angiogram of the neck. The carotid arteries and right vertebral artery are widely patent. 5. 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 ACT 112: Negative or not required by law. Electronically signed by: Rishi Kwon M.D. 04/26/2022 12:12 AM Neck CTA 04/25/22 22:[address] OF THE BRAIN; CT ANGIOGRAM OF THE BRAIN; CT ANGIOGRAM OF THE NECK CLINICAL HISTORY: Strokelike symptoms. COMPARISON STUDY: CT of the brain dated 01/29/2020. PET CT dated 05/01/2021. MR angiogram of the head and neck dated 04/15/2017. TECHNIQUE: Unenhanced axial CT scan of the brain is performed. Subsequently, following the IV administration of 106 of Optiray 320, CT angiogram of the head and neck was performed from the aortic arch to the vertex. Images are reviewed in the axial, sagittal, and coronal planes. 3-D MIPS images are created and assessed. IV contrast was administered without complication. All measurements were calculated based on NASCET criteria. A dose lowering technique was utili zed adhering to the principles of ALARA. FINDINGS: Brain parenchyma: There is age-related involutional change noting mild subcortical and periventricular microangiopathic disease. There is no hemorrhage, mass effect, or evidence of acute territorial ischemia by CT criteria. There is no evidence of enhancing mass lesion on the angiogram phase images. The ventricles, sulci, and cisterns are normal in configuration. Myrick- white matter differentiation is preserved. No extra-axial fluid collection is seen. Thoracic aorta: Visualized portions of the thoracic aorta are normal in caliber. The aortic arch demonstrates standard 3-vessel anatomy. Right carotid arterial system: The right common carotid artery is widely patent, as are the right internal and external carotid arteries. Left carotid arterial system: The left common carotid artery is widely patent, as are the left internal and external carotid arteries. Minimal calcified plaque is seen in the carotid bulb. Vertebral arteries: The right vertebral artery is widely patent. The proximal and mid portions of the T11 are patent. 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 This is reconstituted at the skull base. Subclavian arteries: Widely patent bilaterally. Intracranial vasculature: The internal carotid arteries are patent at the skull base, as are the anterior and middle cerebral arteries bilaterally. The vertebrobasilar system and posterior cerebral arteries are widely patent. There are bilateral posterior communicating arteries. The right vertebral artery is dominant. There is no aneurysm, high-grade stenosis, or focal vessel cut off seen throughout the intracranial circulation. Jugular veins: Patent bilaterally. Dural sinuses: Patent. Lung apices: Partially visualized upper lobe lung parenchyma appears clear. Soft tissues: The visualized pharyngeal soft tissues are normal in appearance noting angiographic phase technique. The oropharyngeal airway appears widely patent. The thyroid gland is heterogeneous. The salivary glands are normal in appearance. No cervical lymphadenopathy is seen. Skeletal structures: The skeletal structures are osteopenic. The calvarium appears intact. The cervical spine is maintained noting moderate multilevel cervical spondylosis. There are numerous osteolytic foci throughout the calvarium and cervical spine which are new from previous and typical for bony metastatic disease. Orbits: The bony orbits are intact. Orbital contents are normal as visualized. Sinuses and mastoids: The paranasal sinuses are clear. The mastoid air cells are well pneumatized. IMPRESSION: 1. There is no hemorrhage, mass effect, or evidence of acute territorial ischemia by CT criteria. 2. Unremarkable CT angiogram of the brain. 3. 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 This is reconstituted at the skull base. 4. Otherwise unremarkable CT angiogram of the neck. The carotid arteries and right vertebral artery are widely patent. 5. Multifocal osteolytic metastatic disease throughout the calvarium and ce rvical spine has significantly progressed from prior examinations. ACT 112: Negative or not required by law. Electronically signed by: Rishi Kwon M.D. 04/26/2022 12:12 AM MDM Narrative Prior records/ancillary studies reviewed. Triage Nursing notes reviewed. Additional history obtained from the family. The patient's history was concerning for respiratory difficulties. Differential diagnosis: Etiologies such as infections, reactive airway disease, pneumonia, pneumothorax , COPD, CHF, cardiac ischemia, pulmonary embolism, musculoskeletal, gastrointestinal, as well as others were entertained. Physical examination: As above. ER treatment provided: An order was placed for continuous cardiac monitoring. The monitor shows a rate of 60-1 80 with a sinus rhythm that switched to A. fib while in the ER. IV fluids, meropenem, Cardizem, nebulizer, BiPAP On reassessment the patient felt better. Diagnostic interpretation by me: #1 the electrocardiogram was ordered for dyspnea EKG: Normal sinus, poor baseline, left axis, rate of 102. Impression sinus tachycardia with left axis deviation interpreted by myself I think arrhythmia is unlikely. EKG shows normal sinus rhythm with no interval abnormalities such as QT prolongation or WPW. There are no findings to suggest Brugada syndrome. Cardiac monitoring in the emergency department reveals no tachycardic or bradycardic dysrhythmia. Hypertrophic cardiomyopathy was considered but there are no clear historical elements pointing toward this. EKG is not suggestive. The QRS voltage is not extremely large EKG #2 ordered for tachycardia EKG: Poor baseline, irregularly irregular,Rate of 126. Impression A. fib with RVR rate is 126 interpreted by myself The labs revealed leukocytosis, elevated procalcitonin, VBG reviewed Elevated troponin and repeat was ordered. Imaging studies: Imaging as above Consultation: A consultation was placed with the hospitalist. The case was discussed and diagnostics were reviewed. The patient was evaluated in the ER for further treatment. This appears to be consistent with pneumonia with sepsis who went into A. fib with RVR and acute respiratory distress while in the ER who was placed on BiPAP. Patient was reassessed multiple times. While in the ER she deco mpensated while she was getting her antibiotics and was placed on BiPAP. She was started on Cardizem which improved her blood pressure and heart rate improved. 2 IV lines were placed. She was medicated as above. Patient greatly improved. She was admitted to the medical service. By the evaluation outlined above emergent etiologies such as CHF, cardiac ischemia, pulmonary embolism, reactive airway disease, pneumothorax, musculoskeletal, as well as others were deemed relatively unlikely. The pt/daughter informed about the findings as listed above. All questions were answered and pleased with the treatment. The chart was completed utilizing [employer] voice recognition software. Grammatical errors, random word insertions, pronoun errors, and incomplete sentences are an occassional consequence of this system due to software limitations, ambient noise, and hardware issues. Any formal questions or concerns about the content, text, or information contained within the body of this dictation should be directly addressed to the physician photographer assistant for clarification. Impression & Plan Sepsis, Pneumonia, Atrial fibrillation with rapid ventricular response Discharge Plan Visit Data Chief Complaint: Shortness of Breath/Dyspnea Stated Complaint: PNEUMONIA, SOB ED Provider: [facility] ED Midlevel Provider: Dori Mccurdy Discharge Problem: Sepsis, Pneumonia, Atrial fibrillation with rapid ventricular response Patient Disposition: Admitted As Inpatient Condition: Fair Discharge Instructions Interventions: ED Discharge Assessment Last Done: 04/26/22 02:55 Addendum April 27, 2022 03:11 HPI: The patient is a 81-year-old woman with a past medical history of metastatic breast cancer who presented to the emergency department for jer luation of worsening shortness of breath in setting of being treated for pneumonia with Levaquin and with concern for increased confusion. A/P: Initial EKG demonstrates sinus tachycardia without overt ST elevation or depression. CXR demonstrates bibasilar airspace consolidation consistent with pneumonia. WBC 16.6K with left shift. H/H approximate to prior values. Platelets within normal limits. Chemistry without metabolic acidosis. LFTs similar to prior. High-sensitivity troponin 18.4, nonspecific. BNP 325, nonspecific. Procalcitonin is elevated at 8.7. CTA of the chest was performed and was negative for PE. Note is made of multi focal airspace opacities consistent with pneumonia. Additional note is made of the patient's known metastatic disease that has progressed. There is question of a perfusion defect in the central spleen that may be consistent with splenic infarct. The patient did experience respiratory failure following admission for pneumonia. BiPAP initiated. Cardizem drip initiated for development of atrial fibrillation with RVR. IVF, Broad-spectrum antibiotics. I was consulted by the Advanced Practice Provider.I performed a substantive portion of the visit.This includes aspects of the HPI, MDM, diagnostic interpretations, and disposition/plan. I discussed the case with the DAT, and agree with the findings and plan as documented in DAT Mccurdy's note. : Sepsis Qualifiers: Sepsis type: sepsis due to unspecified organism Sepsis acute organ dysfunction status: unspecified Qualified Code(s): A41.9 - Sepsis, unspecified organism
[2022-04-26] MEDS ORDERED: ALBUTEROL 0.083% NEBU SOLN 3 ML VIAL NEB PRN (02:54)
[2022-04-26] MEDS ORDERED: ONDANSETRON INJ 2 MG/ML 2 ML VIAL IV PRN (02:54)
[2022-04-26] MEDS ORDERED: ACETAMINOPHEN 325 MG TAB PO PRN (02:54)
[2022-04-26] MEDS ORDERED: HYDROmorphone HCL 2 MG TAB PO PRN (02:54)
[2022-04-26] MEDS ORDERED: POTASSIUM CHLORIDE 20 MEQ in LACTATED RINGER'S 1,000 ML IV SCH (02:54)
[2022-04-26] MEDS ORDERED: PROCHLORPERAZINE MALEATE 5 MG TAB PO PRN (02:54)
[2022-04-26] MEDS: cefTRIAXone SODIUM 1,000 MG in DEXTROSE 5% AD-VAN 50 ML IV SCH (03:26)
[2022-04-26] MEDS ORDERED: AZITHROMYCIN 500 MG in DEXTROSE 5% 250 ML IV ONE (03:30)
[2022-04-26] MEDS: ENOXAPARIN INJ 30 MG/0.3 ML SYR SQ SCH (06:27)
[2022-04-26] MEDS ORDERED: SODIUM CHLORIDE 0.9% 1000ML 250 ML IV ONE (08:12)
[2022-04-26] MEDS: CALCITONIN SALMON NA 200 IU/AC 3.7 ML BTL SCH ×2 (09:25→21:26)
[2022-04-26] MEDS: NSS + 20MEQ KCL 20 MEQ/1,000 ML BAG IV SCH ×2 (09:55→19:57)
[2022-04-26 10:02] LABS: Vitamin B12 > 1500 pg/ml (180-914)
[2022-04-26] MEDS: guaiFENesin 600 MG TABCR PO SCH ×2 (10:13→22:18)
[2022-04-26] MEDS: PANTOprazole 40 MG TAB PO SCH (10:13)
[2022-04-26] MEDS: METHADONE HCL 5 MG TAB PO SCH ×2 (10:13→21:30)
[2022-04-26] MEDS: FIRST - Mouthwash BLM 119 ML PO SCH ×3 (10:13→21:30)
[2022-04-26] MEDS: DULoxetine HCL 60 MG CAP PO SCH (10:13)
[2022-04-26] MEDS: ASPIRIN 81 MG ECTAB PO SCH (10:13)
--- NOTE | 2022-04-26 14:37 | Electrocardiogram Report ---
Test Reason : Blood Pressure : / mmHG Vent. Rate : 102 BPM Atrial Rate : 102 BPM P-R Int : 154 ms QRS Dur : 100 ms QT Int : 340 ms P-R-T Axes : 049 -32 069 degrees QTc Int : 443 ms Poor data quality, interpretation may be adversely affected Sinus tachycardia Possible Left atrial enlargement Left axis deviation Septal infarct , age undetermined Abnormal ECG When compared with ECG of 08-APR-2021 17:30, Septal infarct is now Present T wave inversion no longer evident in Inferior leads Nonspecific T wave abnormality now evident in Lateral leads Confirmed by Cosmo Kim ([id number]) on 04/26/2022 2:36:36 PM Referred By: REFERRED SELF Confirmed By:Cosmo Kim
--- NOTE | 2022-04-26 14:38 | Electrocardiogram Report ---
Test Reason : Blood Pressure : / mmHG Vent. Rate : 126 BPM Atrial Rate : 115 BPM P-R Int : 000 ms QRS Dur : 102 ms QT Int : 334 ms P-R-T Axes : 000 -32 088 degrees QTc Int : 483 ms Poor data quality, interpretation may be adversely affected Atrial fibrillation with rapid ventricular response Left axis deviation Nonspecific ST and T wave abnormality Abnormal ECG When compared with ECG of 25-APR-2022 21:22, (unconfirmed) Atrial fibrillation has replaced Sinus rhythm T wave amplitude has increased in Anterior leads Confirmed by Cosmo iKm ([id number]) on 04/26/2022 2:37:50 PM Referred By: REFERRED SELF Confirmed By:Cosmo Kim
--- NOTE | 2022-04-26 15:37 | Hospitalist Progress Note ---
Date of Service April 26, 2022 Assessment & Plan (1) Pneumonia: Plan: She remains on intravenous Rocephin and azithromycin, day 1. We will obtain sputum culture if sputum is produced. Blood cultures and urine cultures pending. Serial chest x-ray. (2) Atrial fibrillation with rapid ventricular response: Plan: Patient with atrial fibrillation with RVR s/p diltiazem bolus and gtt started in the ED. HR now controlled. Continue Diltiazem. Telemetry monitoring (3) Elevated LFTs: Plan: Patient with known liver metastases. Not significantly worse than prior. Serial labs. (4) History of right breast cancer: Plan: History of metastatic breast cancer with involvement of liver and spine as well as skull. No brain mets to the knowledge of patient's daughter. Xeloda on hold while being treated for active infection. Currently on Methadone 5mg po BID for pain control. Consider MRI brain to evaluate for metastatic disease . (5) Depression: Plan: Chronic. Continue Duloxetine 60mg po daily. DVT Ppx - Lovenox 30mg daily Code - Full. Consider palliative Care consultation. Plan To be determined Admission and Anticipated Discharge Date Admission Date: April 26, 2022 Subjective Alert and oriented. No acute distress. Borderline low blood pressure earlier today responded to intravenous fluids. Blood culture results are pending. She remains on intravenous Rocephin and azithromycin, day 1. Potassium replacement underway. She remains on supplemental oxygen per nasal cannula. Review of Systems Review of Systems: Constitutional-no fever or chills ENT-no blurred vision, no double vision, no epistaxis, no sore throat Respiratory-nonproductive cough. No wheezing, no shortness of breath Cardiac-no palpitations, no chest pain, no syncope GI-no nausea, vomiting, diarrhea, melena, hematochezia -no urinary retention, no urinary incontinence, no dysuria, no hematuria Musculoskeletal-no joint pain, no muscle tenderness Skin-no bruising, no rashes, no pruritus Neuro-no isolated weakness, no paresthesia, no weakness Psych-no depression, no anxiety Physical Exam Physical Exam: General-alert and oriented x3, no fevers, no chills HEENT-head atraumatic and normocephalic, pupils equal and reactive to light, extraocular muscles intact Neck-no lymphadenopathy or thyromegaly, trachea midline Chest-clear to auscultation percussion. No rales wheezing or rhonchi Cardiac-regular rate and rhythm, normal S1 and S2 Abdomen-normal bowel sounds, nontender, no hepatosplenomegaly Extremities-no cyanosis, clubbing, or edema Neuro-cranial nerves II through XII intact, motor and sensory function within normal limits, strength symmetrical , no focal deficits Psych-normal affect, normal mood Results & Data Results & Data ([facility]) Vital Signs (Past 12 Hours) Vital Signs Temp Pulse Pulse Resp BP Pulse Ox O2 Del Method 04/26/22 15:25 37.1 C 96 H 22 117/71 93 Nasal Cannula 04/26/22 11:07 37.1 C 96 H 17 117/71 93 Nasal Cannula 04/26/22 07:50 77 04/26/22 07:50 Nasal Cannula 04/26/22 07:33 36.6 C 78 16 89/45 L 95 Nasal Cannula 04/26/22 06:20 78 91/45 L 04/26/22 06:04 77 91/51 L 04/26/22 05:47 78 87/42 L 04/26/22 05:00 78 93/55 L 04/26/22 04:31 83 04/26/22 04:25 Oxymask 04/26/22 04:21 80 22 96/54 L 97 Oxymask 04/26/22 03:36 83 91/48 L O2 Flow Rate 04/26/22 15:25 8 04/26/22 11:07 10 04/26/22 07:50 04/26/22 07:50 6 04/26/22 07:33 6 04/26/22 06:20 04/26/22 06:04 04/26/22 05:47 04/26/22 05:00 04/26/22 04:31 04/26/22 04:25 6 04/26/22 04:21 10 04/26/22 03:36 Laboratory Results 04/25/22 22:00 04/25/22 22:00 PG Care Time/CCT Total # of Minutes Spent Total Time Spent with Patient: Total time spent is greater than 50% in coordination of care (as documented) at patient's floor/unit and/or counseling patient: Coding Level of Care Code 82334 Subseq Hosp Care Lvl 3 Diagnoses Pneumonia J18.9 Atrial fibrillation with rapid ventricular response I48.91 Elevated LFTs R79.89 History of right breast cancer Z85.3 Depression F32.A
[2022-04-27] MEDS: cefTRIAXone SODIUM 1,000 MG in DEXTROSE 5% AD-VAN 50 ML IV SCH (02:52)
[2022-04-27] MEDS: AZITHROMYCIN 250 MG in DEXTROSE 5% 250 ML IV SCH (03:32)
[2022-04-27] MEDS: NSS + 20MEQ KCL 20 MEQ/1,000 ML BAG IV SCH ×2 (05:16→16:13)
[2022-04-27] MEDS: ENOXAPARIN INJ 30 MG/0.3 ML SYR SQ SCH (06:14)
[2022-04-27 06:23] LABS: Hematocrit (blood only) 23.7 % (34.1-44.9); Hemoglobin 8.6 g/dl (12.0-16.0); Mean Corpuscular Hemoglobin 37.1 pg (25.0-34.0); Mean Corpuscular Hgb Conc 36.3 g/dL (32.0-36.0); Mean Corpuscular Volume 102.2 fL (80.0-100.0); Mean Platelet Volume 9.7 fL (9.4-12.3); Nucleated RBC # (auto) 0.11 K/uL (0-0); Nucleated RBC % (auto) 0.6 %; Platelet Count 155 K/uL (130-400); RDW Coefficient of Variation 20.4 % (11.5-14.5); RDW Standard Deviation 74.5 fL (36.4-46.3); Red Blood Count 2.32 M/uL (3.93-5.22); White Blood Count 18.51 K/ul (4.8-10.8)
[2022-04-27 06:57] LABS: Albumin Level 2.2 gm/dl (3.4-5.0); BUN Creatinine Ratio 52.9 (10-20); Bilirubin Direct 0.4 mg/dl (0-0.2); Bilirubin,Total 0.8 mg/dl (0.2-1.0); Calcium 7.3 mg/dl (8.5-10.1); Creatinine Clr Calc Pharmacy 71.3 ml/min; Est GFR (Non-African American) 91.5 ml/min; Potassium 3.2 mmol/L (3.5-5.1); Total Protein 4.7 gm/dl (6.0-8.3)
[2022-04-27] MEDS: ASPIRIN 81 MG ECTAB PO SCH (09:06)
[2022-04-27] MEDS: guaiFENesin 600 MG TABCR PO SCH ×2 (09:07→20:00)
[2022-04-27] MEDS: PANTOprazole 40 MG TAB PO SCH (09:07)
[2022-04-27] MEDS: DULoxetine HCL 60 MG CAP PO SCH (09:07)
[2022-04-27] MEDS: FIRST - Mouthwash BLM 119 ML PO SCH ×3 (09:07→20:07)
[2022-04-27] MEDS: CALCITONIN SALMON NA 200 IU/AC 3.7 ML BTL SCH ×2 (09:07→20:01)
[2022-04-27] MEDS: METHADONE HCL 5 MG TAB PO SCH ×2 (09:14→20:06)
[2022-04-27] MEDS ORDERED: dilTIAZem HCL 30 MG TAB PO STA (09:21)
[2022-04-27] MEDS ORDERED: ENOXAPARIN 1 MG/KG SC SCH (09:30)
[2022-04-27] MEDS: POTASSIUM CHLORIDE CRTAB 20 MEQ TABCR PO SCH ×2 (10:13→20:00)
--- NOTE | 2022-04-27 10:54 | XRay Report ---
XR chest 1V portable HISTORY: Shortness of breath. pneumonia COMPARISON: Chest 04/25/2022. FINDINGS: There are low lung volumes. No pneumothorax. The heart remains mildly enlarged. There are s mall bilateral pleural effusions with bibasilar airspace opacities consistent with a pneumonia. This is similar to the prior study. The upper lung zones remain clear. No evidence for pulmonary edema. IMPRESSION: Redemonstration of the bibasilar airspace opacities with small bilateral pleural effusions. This like ly represents a pneumonia. ACT 112: Negative or not required by law. Electronically signed by: Rizwan Hilario M.D. 04/27/2022 10:52 AM
--- NOTE | 2022-04-27 14:11 | Hospitalist Progress Note ---
Date of Service April 27, 2022 Assessment & Plan (1) Pneumonia: Plan: She remains on intravenous Rocephin and azithromycin, day 2. We will obtain sputum culture if sputum is produced. Blood cultures and urine cultures are negative to date. Repeat portable chest x-ray today, April 27, is unchanged. Serial chest x-ray until clear (2) Atrial fibrillation with rapid ventricular response: Plan: Patient with atrial fibrillation with RVR s/p diltiazem bolus and gtt started in the ED. HR now controlled. Continue Diltiazem. IV dosing switched to oral dosing today, April 27. She is now on Lovenox 1 mg/kg subcutaneously every 12 hours. Telemetry monitoring (3) Elevated LFTs: Plan: Patient with known liver metastases. Not significantly worse than prior. Serial labs. (4) History of right breast cancer: Plan: History of metastatic breast cancer with involvement of liver and spine as well as skull. No brain mets to the knowledge of patient's daughter. Xeloda on hold while being treated for active infection. Currently on Methadone 5mg po BID for pain control. Consider MRI brain to evaluate for metastatic disease . (5) Depression: Plan: Chronic. Continue Duloxetine 60mg po daily. DVT Ppx - Lovenox 1 mg/kg subcutaneously every 12 hours for atrial fibrillation Code - Full. (6) Hypokalemia: Plan: Oral replacement. Serial labs Plan To be determined Admission and Anticipated Discharge Date Admission Date: April 26, 2022 Subjective Alert and oriented. No new problems. Repeat portable chest x-ray today, April 27, reveals no significant changes. She has been started on Lovenox 1 mg/kg subcutaneously every 12 hours. IV fluids further taper down. Oral potassium supplementation started. Intravenous diltiazem drip switched to oral dosing. Review of Systems Review of Systems: Constitutional-no fever or chills ENT-no blurred vision, no double vision, no epistaxis, no sore throat Respiratory-nonproductive cough. No wheezing, no shortness of breath Cardiac-no palpitations, no chest pain, no syncope GI-no nausea, vomiting, diarrhea, melena, hematochezia -no urinary retention, no urinary incontinence, no dysuria, no hematuria Musculoskeletal-no joint pain, no muscle tenderness Skin-no bruising, no rashes, no pruritus Neuro-no isolated weakness, no paresthesia, no weakness Psych-no depression, no anxiety Physical Exam Physical Exam: General-alert and oriented x3, no fevers, no chills HEENT-head atraumatic and normocephalic, pupils equal and reactive to light, extraocular muscles intact Neck-no lymphadenopathy or thyromegaly, trachea midline Chest-clear to auscultation percussion. No rales wheezing or rhonchi Cardiac-irregular rhythm. Controlled rate. Normal S1 and S2 Abdomen-normal bowel sounds, nontender, no hepatosplenomegaly Extremities-no cyanosis, clubbing, or edema Neuro-cranial nerves II through XII intact, motor and sensory function within normal limits, strength symmetrical , no focal deficits Psych-normal affect, normal mood Results & Data Results & Data ([facility]) Vital Signs (Past 12 Hours) Vital Signs Temp Pulse Pulse Resp BP Pulse Ox O2 Del Method 04/27/22 11:09 84 20 94 Nasal Cannula 04/27/22 10:48 36.4 C L 82 20 109/62 94 Nasal Cannula 04/27/22 08:30 79 04/27/22 08:30 Nasal Cannula 04/27/22 08:07 36.4 C L 91 H 18 126/70 96 Nasal Cannula 04/27/22 03:02 36.2 C L 86 18 117/67 96 Nasal Cannula O2 Flow Rate 04/27/22 11:09 8 04/27/22 10:48 9 04/27/22 08:30 04/27/22 08:30 8 04/27/22 08:07 9 04/27/22 03:02 8 Laboratory Results 04/27/22 05:56 04/27/22 05:56 PG Care Time/CCT Total # of Minutes Spent Total Time Spent with Patient: Total time spent is greater than 50% in coordination of care (as documented) at patient's floor/unit and/or counseling patient: Coding Level of Care Code 41663 Subseq Hosp Care Lvl 3 Diagnoses Pneumonia J18.9 Atrial fibrillation with rapid ventricular response I48.91 Elevated LFTs R79.89 History of right breast cancer Z85.3 Depression F32.A Hypokalemia E87.6
[2022-04-27] MEDS ORDERED: ENOXAPARIN INJ 60 MG/0.6 ML SYR SQ SCH (18:00)
[2022-04-27] MEDS: ENOXAPARIN INJ 60 MG/0.6 ML SYR SQ SCH (18:04)
[2022-04-28] MEDS ORDERED: HYDROmorphone INJ 0.5 MG/0.5 ML SYR IV STA (02:45)
[2022-04-28] MEDS: cefTRIAXone SODIUM 1,000 MG in DEXTROSE 5% AD-VAN 50 ML IV SCH (03:05)
[2022-04-28] MEDS: AZITHROMYCIN 250 MG in DEXTROSE 5% 250 ML IV SCH (03:32)
[2022-04-28 04:44] LABS: Base Excess VBG 3.4 mEq/L; HCO3 VBG 27 mmol/L; Oxygen Saturation VBG 94.7 %; PCO2 VBG 36 mmHg (38-50); PO2 VBG 62 mmHg; pH VBG 7.48 (7.36-7.41)
[2022-04-28 04:45] LABS: Hematocrit (blood only) 24.4 % (34.1-44.9); Hemoglobin 8.7 g/dl (12.0-16.0); Mean Corpuscular Hemoglobin 37.5 pg (25.0-34.0); Mean Corpuscular Hgb Conc 35.7 g/dL (32.0-36.0); Mean Corpuscular Volume 105.2 fL (80.0-100.0); Mean Platelet Volume 10.1 fL (9.4-12.3); Nucleated RBC # (auto) 0.04 K/uL (0-0); Nucleated RBC % (auto) 0.2 %; Platelet Count 136 K/uL (130-400); RDW Coefficient of Variation 21.9 % (11.5-14.5); RDW Standard Deviation 82.3 fL (36.4-46.3); Red Blood Count 2.32 M/uL (3.93-5.22); White Blood Count 18.54 K/ul (4.8-10.8)
[2022-04-28] MEDS ORDERED: ACETAMINOPHEN 10MG/ML Custom 500 MG in EMPTY BAG 0 ML IV STA (04:59)
[2022-04-28 05:05] LABS: Anisocytosis Present; Basophils # (auto) 0.04 K/uL (0-0.2); Basophils % (auto) 0.2 %; Eosinophils # (auto) 0.01 K/uL (0-0.50); Eosinophils % (auto) 0.1 %; Immature Granulocytes # (auto) 0.97 K/uL (0.00-0.02); Immature Granulocytes % (auto) 5.2 %; Lymphocytes # (auto) 0.59 K/uL (1.2-3.4); Lymphocytes % (auto) 3.2 %; Monocytes # (auto) 0.46 K/uL (0.24-0.82); Monocytes % (auto) 2.5 %; Neutrophils # (auto) 16.47 K/uL (1.4-6.5); Neutrophils % (auto) 88.8 %; Polychromasia 1+; Target Cells 1+
[2022-04-28 05:11] LABS: BUN Creatinine Ratio 51.2 (10-20); Calcium 7.3 mg/dl (8.5-10.1); Creatinine Clr Calc Pharmacy 88.7 ml/min; Est GFR (African American) 113.9 ml/min; Est GFR (Non-African American) 98.3 ml/min; Potassium 3.4 mmol/L (3.5-5.1)
[2022-04-28] MEDS: ENOXAPARIN INJ 60 MG/0.6 ML SYR SQ SCH ×2 (05:11→17:26)
[2022-04-28] MEDS: NSS + 20MEQ KCL 20 MEQ/1,000 ML BAG IV SCH (08:52)
[2022-04-28] MEDS: ASPIRIN 81 MG ECTAB PO SCH (09:03)
[2022-04-28] MEDS: CALCITONIN SALMON NA 200 IU/AC 3.7 ML BTL SCH ×2 (09:06→21:07)
[2022-04-28] MEDS: FIRST - Mouthwash BLM 119 ML PO SCH ×3 (09:06→21:08)
[2022-04-28] MEDS: METHADONE HCL 5 MG TAB PO SCH ×2 (09:06→21:11)
[2022-04-28] MEDS: guaiFENesin 600 MG TABCR PO SCH ×2 (09:06→21:05)
[2022-04-28] MEDS: PANTOprazole 40 MG TAB PO SCH (09:06)
[2022-04-28] MEDS: DULoxetine HCL 60 MG CAP PO SCH (09:06)
[2022-04-28] MEDS: POTASSIUM CHLORIDE CRTAB 20 MEQ TABCR PO SCH ×2 (09:07→21:06)
--- NOTE | 2022-04-28 15:06 | Hospitalist Progress Note ---
Date of Service April 28, 2022 Assessment & Plan (1) Pneumonia: Plan: Admitted on account of functional decline Found to have lobar PNA on Chest xray She remains on intravenous Rocephin and azithromycin, day 3. We will obtain sputum culture if sputum is produced. Blood cultures and urine cultures are negative to date. Repeat portable chest x-ray April 27, is unchanged. (2) Atrial fibrillation with rapid ventricular response: Plan: Patient with atrial fibrillation with RVR s/p diltiazem bolus and gtt started in the ED. HR now controlled. Continue Diltiazem. IV dosing switched to oral dosing April 27. She is now on Lovenox 1 mg/kg subcutaneously every 12 hours. Telemetry monitoring (3) Elevated LFTs: Plan: Patient with known liver metastases. Not significantly worse than prior. Serial labs. (4) History of right breast cancer: Plan: History of metastatic breast cancer with involvement of liver and spine as well as skull. No brain mets to the knowledge of patient's daughter. Xeloda on hold while being treated for active infection. Currently on Methadone 5mg po BID for pain control. CT scan shows worsening bone mets Will consult palliative services (5) Depression: Plan: Chronic. Continue Duloxetine 60mg po daily. DVT Ppx - Lovenox 1 mg/kg subcutaneously every 12 hours for atrial fibrillation Code - Full. (6) Hypokalemia: Plan: Oral replacement. Serial labs Plan continue hospitalization Admission and Anticipated Discharge Date Admission Date: April 26, 2022 Subjective patient seen and examined, very lethargic, unable to answer questions, son in law and daughter by the bedside. according to them, she has been declining over the past ew days Review of Systems Review of Systems: unable to obtain Physical Exam Physical Exam: The patient is awake, lethargic, chronically ill looking HEENT--PERRL, EOMI, mucous membranes and oropharynx mildly dry Neck--supple. No JVD. No bruits. Thyroid normal, trachea midline, no adenopathy. Heart--normal S1 and S2. No murmurs, rubs or gallops. Lungs--reduced air entry Abdomen--normal bowel sounds and soft. Mild epigastric and left sided abdominal pain Extremities--no cyanosis or clubbing. No edema. Dermatologic--normal skin turgor, normal color, no abnormal lymph nodes, no rash. Neurologic--cranial nerves II through XII grossly intact. Rheumatologic--normal range of motion. Psychiatric--normal affect. Results & Data Results & Data ([facility]) Vital Signs (Past 12 Hours) Vital Signs Temp Pulse Pulse Resp BP Pulse Ox O2 Del Method 04/28/22 11:31 97.5 F L 98 H 18 138/80 95 Oxymask 04/28/22 08:30 78 04/28/22 08:30 Oxymask 04/28/22 07:32 97.9 F 89 24 141/75 H 97 Oxymask O2 Flow Rate 04/28/22 11:31 6 04/28/22 08:30 04/28/22 08:30 6 04/28/22 07:32 6 PG Care Time/CCT Total # of Minutes Spent Total Time Spent with Patient: Total time spent is greater than 50% in coordination of care (as documented) at patient's floor/unit and/or counseling patient: Coding Level of Care Code 70745 Subseq Hosp Care Lvl 2 Diagnoses Pneumonia J18.9 Atrial fibrillation with rapid ventricular response I48.91 Elevated LFTs R79.89 History of right breast cancer Z85.3 Depression F32.A Hypokalemia E87.6 Time Spent (min) 35
--- NOTE | 2022-04-28 15:29 | Palliative Care Consultation ---
Date of Consultation April 28, 2022 Assessment & Plan (1) Palliative care encounter: Patient seen at bedside together with her daughter Lulú and son-in-law. Daughter and son-in-law provide much of the history as patient was initially sleeping and then somewhat agitated and pursued getting a drink and getting out of bed. Daughter shares that patient just recently returned from [place] where she had been for the better part of a year pursuing cancer directed therapy. Daughter notes the patient is followed by palliative medicine at [facility]. Daughter shares that patient had some disease progression and in the recent weeks to months her chemotherapy was changed to Xeloda. She is unable to tell me an ything further about the status of her cancer what discussions of any had been held with patient and family with regards to prognosis. Lulú asks what the next steps will be as far as cancer directed therapy and states they have decided to transfer patient's care here to [place], because she has not been happy having to reside with family member in [facility]. During the time of patient's ongoing cancer treatment in this past year, she resided at the home of her daughter Marilou in [facility]. Here in [place], patient has her own home and prefers to be in her own space. (2) Advanced care planning/counseling discussion: Family and I briefly discussed patient's CODE STATUS. We spoke outside of the room for approximately 18 minutes were daughter shared that when patient had arrived in the emergency room she was asked about resuscitation preferences and elected full code. Family is not sure what her actual wishes are in terms of a long-term answer to the question about wanting to be resuscitated and daughter inquired as to the potential outcomes of CPR. I reviewed with her that in- hospital CPR for patient's in [place] situation with advanced age, frailty, terminal cancer and metastatic disease to the bone would be a low survival probability of less than 10 to 15%. I also advised her that that survival would, at a significantly lower performance status certainly lower than what patient is demonstrating at this time of acute admission. That would then also alter where patient would go as the next step from hospital to beyond i.e. it is unlikely she could return to home for independent living. I gave patient's daughter Lulú some talking labs to use with patient to begin opening up a dialogue about advanced care planning and to try and clarify what patient's wishes are in the long-term. It is less clear at this time as patient has had these conversations prior, but I have asked Lulú to obtain the [facility] records for us to review with particular attention to oncology and palliative medicine notes. (3) Dyspnea and respiratory abnormalities: Patient cystine at this time is controlled with her oxygen mask and antibiotics continue for treatment of her pneumonia and sepsis. (4) Acute hypoxemic respiratory failure: (5) Sepsis: Sepsis acute organ dysfunction status: unspecified Sepsis type: sepsis due to unspecified organism Qualified Code(s): A41.9 - Sepsis, unspecified organism (6) Pneumonia: (7) Metastatic breast cancer: Patient has stage IV terminal breast cancer. There is progression of osteolytic lesions noted of the cervical spine from prior imaging done approximately 1 year ago. During this 1 year interval, patient has been on cancer directed therapies at the [facility] in [place]. Spite of this she has had disease progression suggesting that her cancer is likely worsening and may be resistant to further treatment. Daughter Lulú would like a formal oncology consultation while patient is in-house. I have notified primary team. For Oncology Patients: Patient's Palliative Prognostic Score (PaP) Score = 13.5 points/Interpretation:30-day survival probability <30% [email or web address]/mgxwfzgoeu-[email or web address] Patient's Palliative Prognostic Index (PPI) Score = 14 points/Note:If the PPI is greater than 6.0, survival is less than three weeks (Sensitivity - 80%; Specificity - 85%). [email or web address]://www.mdapp.co/rjhpiytnzq-[email or web address] (8) Bone metastases: Plan * Patient's palliative prognostic score suggest a high 30-day mortality with current acute condition. This may need recalculation after her acute resp iratory failure resolves, which hopefully it will continue to show some improvement with therapy over the next few days. Overall, I suspect patient's prognosis is fairly limited. She is frail, cachectic, growing weakness, worsening performance status and significant disease progression while on therapy. Of note is her disease progression to the cervical spine which may be contributing to her current issues with swallowing and secretion clearance. We will ask speech therapy to evaluate patient to better determine if she is able to safely take p.o. * Oncology consult requested by family, primary team notified. * Will attempt a discussion regarding goals of care with patient in the next few days as her mentation continues to clear and she is more able to have a focused conversation. Today she was having moments of clarity but remained very insistent about getting out of bed and having something to drink. She was not able to fully engage in ongoing dialogue. Shelli Araiza DNP Clinical Director, Palliative Medicine History of Present Illness Reason for Consultation: "goals of care" Attending Physician: Fan Sultana MD History of Present Illness Alexsandra Griffin is a 81-year-old female who presents from home with complaint of confusion/somnolence, shortness of breath and found to be in hypoxic respiratory failure, with room air SPO2 85%. She was started on a 5 L oxygen mask. She was found to be tachycardic, with leukocytosis and tachypnea and a diagnosis of sepsis was made. Procalcitonin was elevated at 8.76 and a chest x-ray confirmed a multifocal pneumonia. She has been requiring supplemental oxygen and a brief BiPAP use. At the time of my evaluation, she is lying in bed asleep wearing on oxygen mask with her daughter and son-in-law at the bedside. She has been started on ceftriaxone 1 g daily. She had a dose of azithromycin in the ER. She is getting Mucinex twice daily, Tylenol as needed along with albuterol nebulizers as needed. She has a history of atrial fibrill ation with RVR for which she is on diltiazem. Her LFTs are noted to be high but this is consistent with her known liver mets. She has a history of right breast cancer with involvement of the liver, spine and skull. She has had worsening gait imbalance and speech deficits per her daughter at the bedside. Her breast cancer is diagnosed approximately 1 year ago at which time her family decided to transfer her care to the [facility] in [place], where she resided with her other daughter. Through the past year she has been treated for her breast cancer and is currently on Xeloda which is now on hold due to the active infection. She was followed by pain management at [facility] who initiated therapy with methadone 5 mg p.o. twice daily, Dilaudid 2 mg p.o. every 4 hours for breakthrough paindaughter states this is rarely used, she also takes Compazine as needed for nausea Zofran as needed for nausea, Magic mouthwash for oral discomfort, and calcitonin nasal spray twice daily. Patient has a history of longstanding depression for which she is on chronic duloxetine. Chart review indicates an oncology consultation done 04/09/[address] Jack in [facility]. At the time of that visit, patient shared with the doctor that she had an early stage breast cancer diagnosed in 2007 or 2008 for which she underwent a lumpectomy with Dr. Nader Felton who has since retired. She recalls having adjuvant radiation therapy but at that time reported not having received any chemo or endocrine therapy. 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 Metastatic disease was estrogen receptor positive progesterone receptor negative and HER2/eduardo negative. At the time of her follow-up outpatient [facility] clinic on 04/23/2021, she was advised that she had stage IV disease which is considered terminal. She had not been on any prior chemotherapeutic regimens. Patient at that time decided to pursue treatment at the [facility], residing with her daughter. We do not have the records at this time to review but the daughter present at the bedside is the one who lives here in [place], a few miles away from patient's home, and she states patient's chemo was recently changed to Xeloda because she had disease progression and could no longer continue the other chemotherapy. I have asked her daughter to contact the [facility] oncology team to have patient's records sent up here for review. At the time of my evaluation, patient is lying in bed with the Oxy mask in place. She is asleep when I came to visit but arose easily when asked. She is somewhat agitated and requesting something cold to drink. She then wanted to get her pillows adjusted, a blanket wrapped around her shoulders, and then out of bed to urinate. As the visit continued, patient did seem to become more awake and alert. She was given initially a mouth swab but then insisted on having a cold glass of water to drink. Daughter held a cup of water to her lips and patient was able to take several big sips however it is noted that she sounded a bit gurgly at the time and her speech sounded very wet. Patient denies any acute pain at the time of this visit. She denies any respiratory distress. Her primary complaint is that she wants to get out of bed, put her clothes on and have something to drink. Extensive chart review indicates a PMH of: alcohol abuse, chronic back pain, chronic neuropathic pain, herniated disk, right-sided breast cancer, hyperlipidemia, marijuana abuse, osteoarthritis, spinal stenosis, tinnitus, and TIA x2. Allergies Allergy/AdvReac Type Severity Reaction Status Date / Time amoxicillin Allergy Unknown . Verified 04/26/22 00:54 doxycycline Allergy Unknown . Verified 04/26/22 00:54 tetracycline Allergy Unknown Unknown Verified 04/26/22 00:54 prednisone AdvReac Mild LOSES HER Verified 04/26/22 00:54 TASTE Home Medications Medication Instructions Recorded Confirmed Type aspirin 81 mg tablet,delayed 81 mg PO QAM 07/02/18 04/26/22 History release polyethylene glycol 3350 17 gram 17 g PO DAILY PRN constipation #30 04/10/21 04/26/22 Rx oral powder packet (Miralax) ea calcitonin (salmon) 200 1 spray intranasal (ALT) DAILY 04/25/22 04/26/22 History unit/actuation nasal spray duloxetine 60 mg capsule,delayed 60 mg PO DAILY 04/25/22 04/26/22 History release furosemide 40 mg tablet 80 mg PO QAM 04/25/22 04/26/22 History hydromorphone 2 mg tablet 2 - 4 mg PO Q4 PRN Pain 04/25/22 04/26/22 History levofloxacin 500 mg tablet 500 mg PO DAILY 04/25/22 04/26/22 History methadone 5 mg tablet 5 mg PO BID 04/25/22 04/26/22 History multivitamin-ferrous 1 tab PO DAILY 04/25/22 04/26/22 History fumarate-folic acid 18 mg-400 mcg tablet (Sentry) pantoprazole 40 mg tablet,delayed 40 mg PO DAILY 04/25/22 04/26/22 History release prochlorperazine maleate 5 mg 5 mg PO Q6 PRN Nausea 04/25/22 04/25/22 History tablet sennosides 8.6 mg tablet (senna) 17 mg PO BID 04/25/22 04/26/22 History vit C 250 mg-vit E 90 mg-zinc 40 1 tab PO BID 04/26/22 04/26/22 History mg-copper 1 [id number]-zxvvkr capsule (PreserVision AREDS-2) vitamin B complex 1 tab PO DAILY 04/26/22 04/26/22 History Patient History Medical History Acute anxiety Alcohol abuse Chronic back pain Chronic neuropathic pain Herniated disc History of right breast cancer S/P LUMPECTOMY, RADIATION Hyperlipidemia Marijuana abuse Osteoarthritis Spinal stenosis Severe at L4-5 Tinnitus Transient ischemic attack (TIA) X 2 (03/2017 & 09/2017) Surgical History History of breast biopsy History of colonoscopy History of dilatation and curettage Hx of lumpectomy RT BREAST Family History Aunt Breast cancer Social History Smoking Status: Former smoker Tobacco Type: Cigarettes Second Hand Exposure: No; Do You Dip or Chew Tobacco: No; Tobacco Cessation Education Requested by Patient: No Hx Alcohol Use: Yes Alcohol type: wine Hx Substance Use: Yes Last Used Substance Other:: 1 WEEK AGO Preferred Language: Palestinian Communication Ability: Effective Supervisor Carding Required: No Beliefs That Will Affect Care: None marital status: / Current Living Situation: Alone Current Living Situation Comment: [facility] How many Children do You have: 2 Other Information That Helps Us Care for You: No Feels Safe at Home: Yes Safety Concerns: Feels Safe At This Time during the past year weight has: decreased > 10 lbs Assistive Devices: Cane and Walker Review of Systems Review of Systems: All systems reviewed & are unremarkable except as noted in Subjective Physical Exam Physical Exam: Frail elderly female, lying in bed at the time of my visit. She does appear slightly older than stated age. She is cachectic and very frail appearing. Color is extremely pale. Her skin is cool to touch. She is using some accessory muscles to breathe. She is short of breath with any continued or prolonged conversation. She is arousable, awake and able to follow very simple commands. She answers questions very briefly. There is some mild JVD noted. Anterior lung exam indicates coarse rhonchi without any gross wheezing. Posteriorly she has diffuse rhonchi, faint crackles at the bases. Her abdomen is scaphoid. Bowel sounds are diminished. Extremities show some generalized weakness. Results & Data ([facility]) Vital Signs (Past 12 Hours) Vital Signs Temp Pulse Pulse Resp BP Pulse Ox O2 Del Method 04/28/22 11:31 36.4 C L 98 H 18 138/80 95 Oxymask 04/28/22 08:30 78 04/28/22 08:30 Oxymask 04/28/22 07:32 36.6 C 89 24 141/75 H 97 Oxymask 04/28/22 03:00 36.7 C 87 32 H 127/72 93 Oxymask O2 Flow Rate 04/28/22 11:31 6 04/28/22 08:30 04/28/22 08:30 6 04/28/22 07:32 6 04/28/22 03:00 6 Laboratory Results Labs and imaging reviewed. Diagnostic Findings Chest x-ray today shows redemonstration of the bibasilar airspace opacities with small bilateral pleural effusions consistent with a pneumonia. CTA of neck done 04/25/2022 demonstrates no hemorrhage, mass-effect or evidence of acute territorial ischemia. Unremarkable CT angio. 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 This is reconstituted at the skull base. There are multifocal osteolytic metastatic disease through the calvarium and cervical spine which has significantly progressed from prior examinations. CT angio chest demonstrates no evidence for pulmonary embolus in the main, lobar or segmental pulmonary arteries. There is multifocal airspace consolidation at the bases, consistent with pneumonia or aspiration pneumonitis. There is multifocal osteolytic metastatic disease which is progressed from prior examinations. There is a compression deformity at T11 which is new from previous and may be acute to subacute. There is evidence of right lobe hepatic metastatic disease. Large perfusion defect in the central spleen is nonspecific but a splenic infarct is not excluded. There is cardiomegaly. PET/CT done 05/01/2021: Hypermetabolic irregular right breast mass measuring up to 3.6 cm has increased in size from 01/29/2020. Dermal thickening of the right breast and periareolar tissues is suggestive of disease extension. Additionally the mass abuts the adjacent pectoralis musculature suspicious for chest wall invasion. There is multifocal hypermetabolic hepatic metastatic cyst. Soft tissue fullness with hypermetabolic activity within the third portion of the duodenum suspicious for metastatic involvement. There is multifocal osseous metastatic disease. There is increased nonspecific tracer activity within the vaginal introitus which could be correlated with pelvic examination findings. PG Care Time/CCT Total # of Minutes Spent Total Time Spent: 78 Total Time Spent with Patient: Total time spent is greater than 50% in coordination of care (as documented) at patient's floor/unit and/or counseling patient: I spent 78 minutes overall addressing this case: 15 in medical data review/discussion with referring provider(s) and/or preparation for the visit 25 in direct interaction with the patient and/or family 18 Advance Care Planning/Goals of Care discussions as detailed above in note (must be >16min) 5 in subsequent review and synthesis of assessment and plan 15 in communicating with other providers regarding the patient's case: [] Advanced Care Planning 15995 Advanced Care Planning 30 [place] [address] Inpt Consult Level 5 Patient Type New History Comprehensive Exam Comprehensive Medical Decision Making High Complexity Diagnoses Palliative care encounter Z51.5 Advanced care planning/counseling discussion Z71.89 Dyspnea and respiratory abnormalities R06.00; R06.89 Acute hypoxemic respiratory failure J96.01 Sepsis A41.9 Sepsis acute organ dysfunction status: unspecified Sepsis type: sepsis due to unspecified organism Pneumonia J18.9 Metastatic breast cancer C50.919 Bone metastases C79.51 Additional Codes Advanced Care Planning - 35395 Advanced Care Planning 30 Min: 46727 Advanced Care Planning 30 Min ([id number])
[2022-04-28] MEDS ORDERED: ALPRAZolam 0.25 MG TABLET PO STA (17:47)
[2022-04-28] MEDS: POLYETHYLENE (MIRALAX) 17 GM PACK PO SCH (21:05)
[2022-04-29] MEDS: NSS + 20MEQ KCL 20 MEQ/1,000 ML BAG IV SCH ×2 (00:02→16:35)
[2022-04-29] MEDS: cefTRIAXone SODIUM 1,000 MG in DEXTROSE 5% AD-VAN 50 ML IV SCH (04:25)
[2022-04-29] MEDS: AZITHROMYCIN 250 MG in DEXTROSE 5% 250 ML IV SCH (04:54)
[2022-04-29] MEDS: ENOXAPARIN INJ 60 MG/0.6 ML SYR SQ SCH ×2 (05:53→17:49)
[2022-04-29 06:50] LABS: Hematocrit (blood only) 30.4 % (34.1-44.9); Hemoglobin 10.3 g/dl (12.0-16.0); Mean Corpuscular Hemoglobin 36.9 pg (25.0-34.0); Mean Corpuscular Hgb Conc 33.9 g/dL (32.0-36.0); Mean Platelet Volume 10.9 fL (9.4-12.3); Nucleated RBC # (auto) 0.04 K/uL (0-0); Nucleated RBC % (auto) 0.2 %; Platelet Count 130 K/uL (130-400); RDW Coefficient of Variation 21.9 % (11.5-14.5); RDW Standard Deviation 86.5 fL (36.4-46.3); Red Blood Count 2.79 M/uL (3.93-5.22); White Blood Count 23.47 K/ul (4.8-10.8)
[2022-04-29 07:17] LABS: BUN Creatinine Ratio 47.4 (10-20); Calcium 7.7 mg/dl (8.5-10.1); Creatinine Clr Calc Pharmacy 108.4 ml/min; Est GFR (African American) 116.8 ml/min; Est GFR (Non-African American) 100.8 ml/min; Potassium 4.5 mmol/L (3.5-5.1)
[2022-04-29 07:20] LABS: Anisocytosis Present; Basophils # (auto) 0.08 K/uL (0-0.2); Basophils % (auto) 0.3 %; Eosinophils # (auto) 0.05 K/uL (0-0.50); Eosinophils % (auto) 0.2 %; Immature Granulocytes # (auto) 0.71 K/uL (0.00-0.02); Lymphocytes # (auto) 0.57 K/uL (1.2-3.4); Lymphocytes % (auto) 2.4 %; Monocytes # (auto) 0.48 K/uL (0.24-0.82); Neutrophils # (auto) 21.58 K/uL (1.4-6.5); Neutrophils % (auto) 92.1 %; Polychromasia 1+; Tear Drop Cells 1+
[2022-04-29] MEDS: METHADONE HCL 5 MG TAB PO SCH ×2 (08:47→22:12)
[2022-04-29] MEDS: CALCITONIN SALMON NA 200 IU/AC 3.7 ML BTL SCH ×2 (08:48→22:13)
[2022-04-29] MEDS: POTASSIUM CHLORIDE CRTAB 20 MEQ TABCR PO SCH ×2 (08:48→22:13)
[2022-04-29] MEDS: PANTOprazole 40 MG TAB PO SCH (08:48)
[2022-04-29] MEDS: guaiFENesin 600 MG TABCR PO SCH ×2 (08:48→22:13)
[2022-04-29] MEDS: FIRST - Mouthwash BLM 119 ML PO SCH ×3 (08:48→22:18)
[2022-04-29] MEDS: DULoxetine HCL 60 MG CAP PO SCH (08:48)
--- NOTE | 2022-04-29 08:50 | Palliative Care Progress Note ---
Date of Service April 29, 2022 Assessment & Plan (1) Palliative care encounter: Plan: * Terminal breast cancer, pt with continued decline * Speech eval +demonstrating overt s/s of aspiration; I had a detailed with patient and son in law re permissive aspiration. Pt wants to take PO as she tolerates for comfort and pleasure. She accepts the risks/potential complications of aspiration at this terminal stage, (2) Cancer related pain: Plan: Patient's pain is managed with methadone 5 mg p.o. twice daily. Her admission EKG was reviewed with a QTC noted to be 483. We will continue methadone for no w, as patient has been on this therapy for some time with good relief of her chronic and severe cancer related pain. Present on Admission?: Yes (3) Advanced care planning/counseling discussion: Plan: Met with pt and her son in law, Sebas, at bedside for 30 min to discuss goals of care and ACP. Pt says she has felt herself worsening for some time and "I have struggled to convey this to my doctors in [place], I have not been saying things as clearly as I wanted to. I know what's happening, I feel it in every bone and I am tired. I just want to be at home, comfortable and with my family." She does not want any aggressive care. She wants to go home with hospice. She does not want more cancer directed care. I have provided education about the hospice benefit. Hospice is an interdisciplinary program offered by nurses, nurses aides, social workers, chaplains and a regional medical director for patients with a terminal condition and a life expectancy of less than 6 months. The goal would be to improve the quality of life of the patient in their home setting (home, custodial, inpatient hospice setting) by providing symptoms management, psychosocial and spiritual support. However, they cannot offer 24 hours care and if the family is unable to provide that care, they will have to consider personal care with out of pocket cost vs. custodial placement. 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 * I have added Roxanol 5 mg p.o. every 30 minutes as needed to relieve air hunger or breakthrough pain. I have not changed her methadone 5 mg p.o. twice daily. (5) Acute hypoxemic respiratory failure: (6) Metastatic breast cancer: Present on Admission?: Yes (7) Bone metastases: Plan: Progression of osteolytic lesions noted in the cervical spine. Present on Admission?: Yes Plan * After extensive discussion with patient and her son-in-law at the bedside, patient elected a discharge plan of home with hospice. She does not wish to linger in the hospital. She does not want further cancer directed therapies. She does not want any aggressive or invasive interventions. She states that she has a dance recital to attend on Thursday in which all 3 grandchildren are performing. She wants to be able to attend this and insist that we let her go as soon as possible so that she may prepare. I discussed with her my concerns about her current oxygen level requiring 15 L via OxyMask. I advised her we will work to de-escalate her oxygen therapy to get her to a 10 L range which can be accommodated with both the home-based concentrator as well as portable oxygen which will help enable her to be present for the dance recital on Thursday if she is able to tolerate. * I have asked care management to submit the referral to hospice. Patient and family will need to select the hospice agency of their preference. She would like her daughter Lulú to manage those arrangements. * Patient's request, I called her daughter Lulú to provide the update of our discussions above. Lulú shares that she had a very similar conversation with patient at the bedside yesterday at which time patient expressed a clear desire to return home and not pursue any further aggressive therapies. She states that patient also told her she was feeling tired of this fight and just wanted to be home with her family. She also indicated to her daughter she did not wish to be on life support or have anything prolong the dying process. I advised Lulú patient reiterated the same concerns to me. I also advised Lulú I discussed with patient the options for going home with the addition of hospice which would enable us to have a team coming to the home to help care for patient and support the family and they are caring of the patient while assuring she continues to have symptom management and quality of life. * I provided education about the hospice benefit. * Patient's other daughter, Rosi, is driving from [place] today. She will arrive sometime later this afternoon/early evening. I have scheduled a family meeting in the room at patient's bedside tomorrow morning at 1030 to review the disposition plan as well as update the family when they are all together. Lulú was in agreement and appreciative of this. All questions were answered to her apparent satisfaction. She verbalized understanding and is in agreement with the plan of care as outlined above, noting that this is what her mother also expressed to her last night. Shelli Araiza [facility] Clinical Director, Palliative Medicine Admission and Anticipated Discharge Date Admission Date: April 26, 2022 Subjective 81yo female with terminal breast cancer, progression of disease while on therapy. Patient was receiving cancer care at [facility] and has now decided to transfer care to [facility], she wants to resume living in her own home. She has been followed by [facility] pall med who have been managing her cancer related pain and symptoms. For pain she is using Methadone 5mg BID and Dilaudid for BTP EKG this admission: Vent. Rate : 126 BPM Atrial Rate : 115 BPM P-R Int : 000 ms QRS Dur : 102 ms QT Int : 334 ms P-R-T Axes : 000 -32 088 degrees QTc Int : 483 ms still requiring Oxymask support at 15lpm, SpO2 last measures 81%/tachy 104bpm/RR30 at 818AM. Nursing reports she desat to 60's while taking PO. Pt peña snot like face mask very much, often removing it or pulling it away from her face. she remains SOB at rest. She is much more awake and alert today. She is mentating clearly, following commands and answering all questions appropriately. Appetite is poor. She is desiring ice chips more than anything else. Occ appleasauce. Speech eval noted and appreciated. Patient demonstrating overt s/s of aspiration Last night and this morning, pt verbalized to staff "I don't want to do this anymore. I just want to go home." When daughter Lulú was present last night pt expressed desire to return home, focus on comfort and acknowledged feeling her time was nearing its end and she did not want to spend it in the hospital or on machines. The other daughter Marilou is en route from [place], ETA this evening. Review of Systems Review of Systems: All systems reviewed & are unremarkable except as noted in Subjective Physical Exam Physical Exam: Frail elderly female, sitting at edge of bed; alert/awake, remains cachectic and very frail appearing. Color is extremely pale. Her skin is cool to touch. She is using accessory muscles to breathe. She is short of breath with any continued or prolonged conversation. She is able to follow very simple commands. She answers questions very briefly. There is some mild JVD noted. Anterior lung exam indicates coarse rhonchi without any gross wheezing. Posteriorly she has diffuse rhonchi, faint crackles at the bases. Her abdomen is scaphoid, BS diminished. Extremities with generalized weakness. Results & Data ([facility]) Vital Signs (Past 12 Hours) Vital Signs Temp Pulse Pulse Resp BP Pulse Ox Pulse Ox 04/29/22 08:18 36.6 C 104 H 30 H 143/80 H 81 L 04/29/22 04:01 36.6 C 87 18 130/79 93 04/29/22 03:45 88 04/29/22 02:00 93 04/29/22 00:36 36.6 C 83 20 147/82 H 93 04/28/22 22:31 96 04/28/22 22:12 04/28/22 21:00 36.7 C 88 18 142/82 H 96 O2 Del Method O2 Del Method O2 Flow Rate O2 Flow Rate 04/29/22 08:18 Oxymask 15.0 04/29/22 04:01 Oxymask 15 04/29/22 03:45 04/29/22 02:00 Oxymask 6 04/29/22 00:36 Oxymask 15 04/28/22 22:31 Oxymask 6 04/28/22 22:12 Oxymask 12 04/28/22 21:00 Oxymask 12 Laboratory Results Labs and imaging reviewed Diagnostic Findings Labs and imaging reviewed PG Care Time/CCT Total # of Minutes Spent Total Time Spent: 85 Total Time Spent with Patient: Total time spent is greater than 50% in coordination of care (as documented) at patient's floor/unit and/or counseling patient: I spent 85 minutes overall addressing this case: 5 in medical data review/discussion with referring provider(s) and/or preparation for the visit incl d/w Dr Good/Dennys re ?XRT for bone lesions 45 in direct interaction with the patient and son in law at bedside + 15min on phone with sue Chino 20 Advance Care Planning/Goals of Care discussions as detailed above in note (must be >16min) 5 in subsequent review and synthesis of assessment and plan 10 in communicating with other providers regarding the patient's case: [] Prolonged Care Time Prolonged Care Time: Yes [place] [address] Subseq Hosp Care Lvl 3 Patient Type Established History Comprehensive Exam Comprehensive Medical Decision Making Moderate Complexity Diagnoses Palliative care encounter Z51.5 Cancer related pain G89.3 Advanced care planning/counseling discussion Z71.89 Dyspnea and respiratory abnormalities R06.00; R06.89 Acute hypoxemic respiratory failure J96.01 Metastatic breast cancer C50.919 Bone metastases C79.51 Additional Codes Prolonged Care Time - Prolonged Care Time: Yes ([id number])
[2022-04-29] MEDS: POLYETHYLENE (MIRALAX) 17 GM PACK PO SCH (08:52)
[2022-04-29] MEDS: ASPIRIN 81 MG ECTAB PO SCH (09:13)
--- NOTE | 2022-04-29 12:53 | Hospitalist Progress Note ---
Date of Service April 29, 2022 Assessment & Plan (1) Pneumonia: Plan: Admitted on account of functional decline Found to have lobar PNA on Chest xray She remains on intravenous Rocephin and azithromycin, day 4. Blood cultures and urine cultures are negative to date. Repeat portable chest x-ray April 27, is unchanged. Although she says she feels a little better (2) Atrial fibrillation with rapid ventricular response: Plan: Patient with atrial fibrillation with RVR s/p diltiazem bolus and gtt started in the ED. HR now controlled. Continue Diltiazem. IV dosing switched to oral dosing April 27. She is now on Lovenox 1 mg/kg subcutaneously every 12 hours. Telemetry monitoring (3) Elevated LFTs: Plan: Patient with known liver metastases. Not significantly worse than prior. Serial labs. (4) History of right breast cancer: Plan: History of metastatic breast cancer with involvement of liver and spine as well as skull. No brain mets to the knowledge of patient's daughter. Xeloda on hold while being treated for active infection. Currently on Methadone 5mg po BID for pain control. CT scan shows worsening bone mets Patient now wants home with hospice, no more chemo (5) Depression: Plan: Chronic. Continue Duloxetine 60mg po daily. DVT Ppx - Lovenox 1 mg/kg subcutaneously every 12 hours for atrial fibrillation Code - Full. (6) Hypokalemia: Plan: Oral replacement. Serial labs Plan Home when home hospice is set up Admission and Anticipated Discharge Date Admission Date: April 26, 2022 Subjective patient seen and examined, more awake and alert today, sitting up by the bedside, says she wants to go home with hospice Review of Systems Review of Systems: All systems reviewed are negative, apart from the ones contained in the history. Physical Exam Physical Exam: The patient is awake, lethargic, chronically ill looking HEENT--PERRL, EOMI, mucous membranes and oropharynx mildly dry Neck--supple. No JVD. No bruits. Thyroid normal, trachea midline, no adenopathy. Heart--normal S1 and S2. No murmurs, rubs or gallops. Lungs--reduced air entry Abdomen--normal bowel sounds and soft. Mild epigastric and left sided abdominal pain Extremities--no cyanosis or clubbing. No edema. Dermatologic--normal skin turgor, normal color, no abnormal lymph nodes, no rash. Neurologic--cranial nerves II through XII grossly intact. Rheumatologic--normal range of motion. Psychiatric--normal affect. Results & Data Results & Data ([facility]) Vital Signs (Past 12 Hours) Vital Signs Temp Pulse Pulse Resp BP Pulse Ox Pulse Ox 04/29/22 08:00 91 H 04/29/22 08:00 04/29/22 09:03 24 94 04/29/22 08:18 97.9 F 104 H 30 H 143/80 H 81 L 04/29/22 04:01 97.9 F 87 18 130/79 93 04/29/22 03:45 88 04/29/22 02:00 93 O2 Del Method O2 Del Method O2 Flow Rate O2 Flow Rate 04/29/22 08:00 04/29/22 08:00 Oxymask 15 04/29/22 09:03 Oxymask 15 04/29/22 08:18 Oxymask 15.0 04/29/22 04:01 Oxymask 15 04/29/22 03:45 04/29/22 02:00 Oxymask 6 PG Care Time/CCT Total # of Minutes Spent Total Time Spent with Patient: Total time spent is greater than 50% in coordination of care (as documented) at patient's floor/unit and/or counseling patient: Coding Level of Care Code 36030 Subseq Hosp Care Lvl 2 Diagnoses Pneumonia J18.9 Atrial fibrillation with rapid ventricular response I48.91 Elevated LFTs R79.89 History of right breast cancer Z85.3 Depression F32.A Hypokalemia E87.6 Time Spent (min) 35
--- NOTE | 2022-04-29 19:57 | Consultation ---
Date of Consultation April 29, 2022 Assessment & Plan (1) Metastatic breast cancer: Breast cancer with metastases to bone and liver. I have requested more specific information from the [facility] to document treatment to date. Certainly we need to hold chemotherapy treatment for now and focus acutely on diagnostic and therapeutic intervention for her widespread pulmonary infiltrates which seem to be above and beyond her previous metastases. Certainly sepsis treatment seems appropriate and there is some attention to the possibility for aspiration issues. Capecitabine does not typically cause pulmonary toxicity as monotherapy though may can cause lung problems in conjunction with oxaliplatin more lapatinib, neither of which she has apparently received. Palliative care note indicates the patient had expressed a desire to go home on hospice without further oncologic therapy but this evening she actually seems to be intent on preserving the possibility for resuming capecitabine if/as her situation stabilizes. I have indicated we need to see to what degree she recovers specific good organ function (especially heart, lung and kidney) as well as general performance status and then can reassess her options eventually with consideration of an alternate schedule of capecitabine if we were to restart that. (2) Dyspnea and respiratory abnormalities: Widespread pulmonary lesions and marked respiratory deterioration seem to represent infection superimposed on her previous pulmonary metastases and/or significant aspiration. 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 She did present with atrial fibrillation and could well have a cardiac source for the latter, the former is more suggestive of an in situ thrombosis associated with atherosclerosis. She is currently on combination of low-dose aspirin and therapeutic dose enoxaparin. We will need to watch closely for bleeding issues. Plan Immediate management is focused on addressing possible infectious pneumonitis though work-up for recurrent aspiration may also be worthwhile. Additionally, with atrial fibrillation she needs rate control and, especially with the possible vertebral vein and splenic thromboses, ongoing anticoagulation. Additional aspirin may increase the bleeding risk but help to deal with any atherosclerotic related thrombosis that may be present. Beyond palliative care discussions and symptom management there is no otherewise role for immediate further chemotherapy treatment of her breast cancer until the above are completely stabilized. We will readdress her options based on specific organ function, performance test, but also philosophical orientation to discuss whether or not we would resume chemotherapy versus continuing on in a more pure palliative care vein History of Present Illness Reason for Consultation: Metastatic breast cancer admitted with an widespread pulmonary infiltrates Attending Physician: Fan Sultana MD History of Present Illness Apparent early stage breast cancer in approximately 2010 treated with lumpectomy, radiation, endocrine adjuvant therapy who recurred with metastatic breast cancer diagnosed in March, presenting with liver and bone metastases. She was seen here briefly but transition to [facility] and the [facility] where she was apparently treated with a series of endocrine options, apeleisb given a PIK3CA mutation, but most recently has received approximately 4 cycles of hydroxyurea on a 14-day on, 7-day off regimen. She apparently had been getting somewhat better on that regimen initially but is now admitted with precipitous decline in respiratory status and widespread multifocal pulmonary infiltrates She also had presented with atrial fibrillation and rapid ventricular response. Initial imaging suggests thrombosis in the distal left vetrebral artery with reconstitution skull base and as well a possible splenic infarct. Allergies Allergy/AdvReac Type Severity Reaction Status Date / Time amoxicillin Allergy Unknown . Verified 04/26/22 00:54 doxycycline Allergy Unknown . Verified 04/26/22 00:54 tetracycline Allergy Unknown Unknown Verified 04/26/22 00:54 prednisone AdvReac Mild LOSES HER Verified 04/26/22 00:54 TASTE Home Medications Medication Instructions Recorded Confirmed Type aspirin 81 mg tablet,delayed 81 mg PO QAM 07/02/18 04/26/22 History release polyethylene glycol 3350 17 gram 17 g PO DAILY PRN constipation #30 04/10/21 04/26/22 Rx oral powder packet (Miralax) ea calcitonin (salmon) 200 1 spray intranasal (ALT) DAILY 04/25/22 04/26/22 History unit/actuation nasal spray duloxetine 60 mg capsule,delayed 60 mg PO DAILY 04/25/22 04/26/22 History release furosemide 40 mg tablet 80 mg PO QAM 04/25/22 04/26/22 History hydromorphone 2 mg tablet 2 - 4 mg PO Q4 PRN Pain 04/25/22 04/26/22 History levofloxacin 500 mg tablet 500 mg PO DAILY 04/25/22 04/26/22 History methadone 5 mg tablet 5 mg PO BID 04/25/22 04/26/22 History multivitamin-ferrous 1 tab PO DAILY 04/25/22 04/26/22 History fumarate-folic acid 18 mg-400 mcg tablet (Sentry) pantoprazole 40 mg tablet,delayed 40 mg PO DAILY 04/25/22 04/26/22 History release prochlorperazine maleate 5 mg 5 mg PO Q6 PRN Nausea 04/25/22 04/25/22 History tablet sennosides 8.6 mg tablet (senna) 17 mg PO BID 04/25/22 04/26/22 History vit C 250 mg-vit E 90 mg-zinc 40 1 tab PO BID 04/26/22 04/26/22 History mg-copper 1 [id number] capsule (PreserVision AREDS-2) vitamin B complex 1 tab PO DAILY 04/26/22 04/26/22 History Patient History Medical History (Updated 04/29/22 @ 20:02 by Rupert Haq MD) Acute anxiety Alcohol abuse Cancer related pain Chronic back pain Chronic neuropathic pain Herniated disc History of right breast cancer S/P LUMPECTOMY, RADIATION Hyperlipidemia Marijuana abuse Osteoarthritis Spinal stenosis Severe at L4-5 Tinnitus Transient ischemic attack (TIA) X 2 (03/2017 & 09/2017) Surgical History History of breast biopsy History of colonoscopy History of dilatation and curettage Hx of lumpectomy RT BREAST Family History Aunt Breast cancer Social History Smoking Status: Former smoker Tobacco Type: Cigarettes Second Hand Exposure: No; Do You Dip or Chew Tobacco: No; Tobacco Cessation Education Requested by Patient: No Hx Alcohol Use: Yes Alcohol type: wine Hx Substance Use: Yes Last Used Substance Other:: 1 WEEK AGO Preferred Language: Colombian Communication Ability: Effective Rn Care Manager Required: No Beliefs That Will Affect Care: Restorationist marital status: / Current Living Situation: Alone Current Living Situation Comment: HOUSEMATE How many Children do You have: 2 Other Information That Helps Us Care for You: No Feels Safe at Home: Yes Safety Concerns: Feels Safe At This Time during the past year weight has: decreased > 10 lbs Assistive Devices: Cane and Walker Physical Exam Physical Exam: Currently with only mild tachycardia and stable blood pressure. She is afebrile with a temperature of 36.6. She is wearing an oxygen mask and seems to be struggling a bit with her respirations. She does seem to be alert and appropriate with mental status though because of her respiratory difficulty she has difficulty talking for more than a word or 2 at a time. Results & Data ([facility]) Vital Signs (Past 12 Hours) Vital Signs Temp Pulse Pulse Resp BP Pulse Ox O2 Del Method 04/29/22 08:00 91 H 04/29/22 08:00 Oxymask 04/29/22 09:03 24 94 Oxymask 04/29/22 08:18 36.6 C 104 H 30 H 143/80 H 81 L Oxymask O2 Flow Rate 04/29/22 08:00 04/29/22 08:00 15 04/29/22 09:03 15 04/29/22 08:18 15.0 Laboratory Results Abnormal lab results 04/29/22 04/29/22 Range/Units 06:18 06:18 WBC 23.47 H (4.8-10.8) K/ul RBC 2.79 L (3.93-5.22) M/uL Hgb 10.3 L (12.0-16.0) g/dl Hct 30.4 L (34.1-44.9) % MCV 109.0 H (80.0-100.0) fL MCH 36.9 H (25.0-34.0) pg RDW Std Deviation 86.5 H (36.4-46.3) fL RDW Coeff of Marques 21.9 H (11.5-14.5) % Neut # (Auto) 21.58 H (1.4-6.5) K/uL Lymph # (Auto) 0.57 L (1.2-3.4) K/uL Immature Gran # (Auto) 0.71 H (0.00-0.02) K/uL Absolute Nucleated RBC 0.04 H (0-0) K/uL Chloride 112 H (98-107) mmol/L Creatinine 0.38 L (0.6-1.2) mg/dl BUN/Creatinine Ratio 47.4 H (10-20) Glucose 115 H (70-99(Fasting)) mg/dl Calcium 7.7 L (8.5-10.1) mg/dl Diagnostic Findings Chest X-Ray 04/25/22 21:02 SINGLE VIEW CHEST CLINICAL HISTORY: Dyspnea FINDINGS: An AP, portable, upright chest radiograph is compared to study dated 04/22/2022. Correlation is made with chest CT dated 01/29/2020. The examination is degraded by portable technique and patient rotation. The heart is enlarged noting atherosclerotic calcification of the thoracic aorta. The pulmonary vasculature is noncongested. Airspace consolidation is present in both lung bases. A small right pleural effusion is noted. No pneumothorax is seen. The skeletal structures are osteopenic. There are chronic rib fractures. A bile duct stent is noted in the right upper quadrant. IMPRESSION: 1. Bibasilar airspace consolidation is typical for pneumonia/aspiration pneumonitis. Clinical correlation will be required and radiographic follow-up to resolution is recommended. 2. Small right pleural effusion. 3. Cardiomegaly without radiographic evidence of congestive failure.. ACT 112: Negative or not required by law. Electronically signed by: Rishi Kwon M.D. 04/25/2022 10:43 PM Chest CTA 04/25/22 22:04 CT ANGIOGRAM OF THE CHEST CLINICAL HISTORY: Strokelike symptoms. Breast cancer. COMPARISON STUDY: Chest x-ray dated 04/25/2022. Chest CT dated 01/29/2020. PET/CT dated 05/01/2021. TECHNIQUE: Following the IV administration of 106 cc of Optiray 320, CT angiogram of the chest was performed from the upper abdomen to the thoracic inlet utilizing the pulmonary embolus protocol. Images are reviewed in the axial, sagittal, and coronal planes. 3-D MIPS images are created and assessed. IV contrast was administered without complication. A dose lowering technique was utilized adhering to the principles of ALARA. The examination is degraded by motion artifact. CT DOSE: 1103.06 mGy.cm FINDINGS: Thyroid: Normal in size and heterogeneous in attenuation. Thoracic aorta: There is moderate atherosclerotic calcification of the thoracic aorta, which is normal in caliber and demonstrates (arch anatomy. No dissection is seen. Pulmonary vasculature: The pulmonary trunk is normal in caliber. There are no filling defects identified in main, lobar, or segmental pulmonary branches to suggest pulmonary embolus. Evaluation of the peripheral branches is degraded by motion artifact. Heart: The heart is enlarged and without pericardial effusion. Lungs and pleural spaces: Evaluation of the lung parenchyma is significantly degraded by motion artifact. The trachea and central airways are clear. Dense airspace consolidation is seen at both lung bases, right greater than left. No pleural effusion is identified. Mediastinum: There is no mediastinal lymphadenopathy. Cynthia: Clear. Axillae: There is no axillary lymphadenopathy. Upper abdomen: Pneumobilia is noted. There is a large perfusion defect suggested in the central spleen. Metastatic disease is suggested in the right hepatic lobe. Skeletal structures: The skeletal structures are osteopenic. Degenerative change and hyperkyphosis is noted throughout the thoracic spine. Extensive osteolytic metastatic disease is noted. There is a moderate compression deformity of T11 which is new from previous. Soft tissues: The patient is cachectic. IMPRESSION: 1. There is no evidence of pulmonary embolus in the main, lobar, or segmental pulmonary arteries. 2. Multifocal airspace consolidation is seen at the lung bases, typical for pneumonia/aspiration pneumonitis. Clinical correlation will be required and radiographic follow-up to resolution is recommended. 3. 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 4. A compression deformity of T11 is new from previous and may be acute to subacute. Correlate for point tenderness. 5. There is evidence of right lobe hepatic metastatic disease. 6. A large perfusion defect in the central spleen is nonspecific and a splenic infarct is not excluded. 7. Cardiomegaly. 8. Additional findings as above. ACT 112: Negative or not required by law. Electronically signed by: Rishi Kwon M.D. 04/26/2022 12:[address] 04/25/22 22:[address] OF THE BRAIN; CT ANGIOGRAM OF THE BRAIN; CT ANGIOGRAM OF THE NECK CLINICAL HISTORY: Strokelike symptoms. COMPARISON STUDY: CT of the brain dated 01/29/2020. PET CT dated 05/01/2021. MR angiogram of the head and neck dated 04/15/2017. TECHNIQUE: Unenhanced axial CT scan of the brain is performed. Subsequently, following the IV administration of 106 of Optiray 320, CT angiogram of the head and neck was performed from the aortic arch to the vertex. Images are reviewed in the axial, sagittal, and coronal planes. 3-D MIPS images are created and assessed. IV contrast was administered without complication. All measurements were calculated based on NASCET criteria. A dose lowering technique was utilized adhering to the principles of ALARA. FINDINGS: Brain parenchyma: There is age-related involutional change noting mild subcortical and periventricular microangiopathic disease. There is no hemorrhage, mass effect, or evidence of acute territorial ischemia by CT criteria. There is no evidence of enhancing mass lesion on the angiogram phase images. The ventricles, sulci, and cisterns are normal in configuration. Myrick- white matter differentiation is preserved. No extra-axial fluid collection is seen. Thoracic aorta: Visualized portions of the thoracic aorta are normal in caliber. The aortic arch demonstrates standard 3-vessel anatomy. Right carotid arterial system: The right common carotid artery is widely patent, as are the right internal and external carotid arteries. Left carotid arterial system: The left common carotid artery is widely patent, as are the left internal and external carotid arteries. Minimal calcified plaque is seen in the carotid bulb. Vertebral arteries: The right vertebral artery is widely patent. The proximal and mid portions of the T11 are patent. 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 This is reconstituted at the skull base. Subclavian arteries: Widely patent bilaterally. Intracranial vasculature: The internal carotid arteries are patent at the skull base, as are the anterior and middle cerebral arteries bilaterally. The vertebrobasilar system and posterior cerebral arteries are widely patent. There are bilateral posterior communicating arteries. The right vertebral artery is dominant. There is no aneurysm, high-grade stenosis, or focal vessel cut off seen throughout the intracranial circulation. Jugular veins: Patent bilaterally. Dural sinuses: Patent. Lung apices: Partially visualized upper lobe lung parenchyma appears clear. Soft tissues: The visualized pharyngeal soft tissues are normal in appearance noting angiographic phase technique. The oropharyngeal airway appears widely patent. The thyroid gland is heterogeneous. The salivary glands are normal in appearance. No cervical lymphadenopathy is seen. Skeletal structures: The skeletal structures are osteopenic. The calvarium appears intact. The cervical spine is maintained noting moderate multilevel cervical spondylosis. There are numerous osteolytic foci throughout the calvarium and cervical spine which are new from previous and typical for bony metastatic disease. Orbits: The bony orbits are intact. Orbital contents are normal as visualized. Sinuses and mastoids: The paranasal sinuses are clear. The mastoid air cells are well pneumatized. IMPRESSION: 1. There is no hemorrhage, mass effect, or evidence of acute territorial isch emia by CT criteria. 2. Unremarkable CT angiogram of the brain. 3. 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 This is reconstituted at the skull base. 4. Otherwise unremarkable CT angiogram of the neck. The carotid arteries and right vertebral artery are widely patent. 5. Multifocal osteolytic metastatic disease throughout the calvarium and cervic al spine has significantly progressed from prior examinations. ACT 112: Negative or not required by law. Electronically signed by: Rishi Kwon M.D. 04/26/2022 12:12 AM Head CTA 04/25/22 22:[address] OF THE BRAIN; CT ANGIOGRAM OF THE BRAIN; CT ANGIOGRAM OF THE NECK CLINICAL HISTORY: Strokelike symptoms. COMPARISON STUDY: CT of the brain dated 01/29/2020. PET CT dated 05/01/2021. MR angiogram of the head and neck dated 04/15/2017. TECHNIQUE: Unenhanced axial CT scan of the brain is performed. Subsequently, following the IV administration of 106 of Optiray 320, CT angiogram of the head and neck was performed from the aortic arch to the vertex. Images are reviewed in the axial, sagittal, and coronal planes. 3-D MIPS images are created and assessed. IV contrast was administered without complication. All measurements were calculated based on NASCET criteria. A dose lowering technique was utilized adhering to the principles of ALARA. FINDINGS: Brain parenchyma: There is age-related involutional change noting mild subcortical and periventricular microangiopathic disease. There is no hemorrhage, mass effect, or evidence of acute territorial ischemia by CT criteria. There is no evidence of enhancing mass lesion on the angiogram phase images. The ventricles, sulci, and cisterns are normal in configuration. Myrick- white matter differentiation is preserved. No extra-axial fluid collection is seen. Thoracic aorta: Visualized portions of the thoracic aorta are normal in caliber. The aortic arch demonstrates standard 3-vessel anatomy. Right carotid arterial system: The right common carotid artery is widely patent, as are the right internal and external carotid arteries. Left carotid arterial system: The left common carotid artery is widely patent, as are the left internal and external carotid arteries. Minimal calcified plaque is seen in the carotid bulb. Vertebral arteries: The right vertebral artery is widely patent. The proximal and mid portions of the T11 are patent. 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 This is reconstituted at the skull base. Subclavian arteries: Widely patent bilaterally. Intracranial vasculature: The internal carotid arteries are patent at the skull base, as are the anterior and middle cerebral arteries bilaterally. The vertebrobasilar system and posterior cerebral arteries are widely patent. There are bilateral posterior communicating arteries. The right vertebral artery is d ominant. There is no aneurysm, high-grade stenosis, or focal vessel cut off seen throughout the intracranial circulation. Jugular veins: Patent bilaterally. Dural sinuses: Patent. Lung apices: Partially visualized upper lobe lung parenchyma appears clear. Soft tissues: The visualized pharyngeal soft tissues are normal in appearance noting angiographic phase technique. The oropharyngeal airway appears widely patent. The thyroid gland is heterogeneous. The salivary glands are normal in appearance. No cervical lymphadenopathy is seen. Skeletal structures: The skeletal structures are osteopenic. The calvarium appears intact. The cervical spine is maintained noting moderate multilevel cervical spondylosis. There are numerous osteolytic foci throughout the calvarium and cervical spine which are new from previous and typical for bony metastatic disease. Orbits: The bony orbits are intact. Orbital contents are normal as visualized. Sinuses and mastoids: The paranasal sinuses are clear. The mastoid air cells are well pneumatized. IMPRESSION: 1. There is no hemorrhage, mass effect, or evidence of acute territorial ischemia by CT criteria. 2. Unremarkable CT angiogram of the brain. 3. 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 This is reconstituted at the skull base. 4. Otherwise unremarkable CT angiogram of the neck. The carotid arteries and right vertebral artery are widely patent. 5. 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 ACT 112: Negative or not required by law. Electronically signed by: Rishi Kwon M.D. 04/26/2022 12:12 AM Neck CTA 04/25/22 22:[address] OF THE BRAIN; CT ANGIOGRAM OF THE BRAIN; CT ANGIOGRAM OF THE NECK CLINICAL HISTORY: Strokelike symptoms. COMPARISON STUDY: CT of the brain dated 01/29/2020. PET CT dated 05/01/2021. MR angiogram of the head and neck dated 04/15/2017. TECHNIQUE: Unenhanced axial CT scan of the brain is performed. Subsequently, following the IV administration of 106 of Optiray 320, CT angiogram of the head and neck was performed from the aortic arch to the vertex. Images are reviewed in the axial, sagittal, and coronal planes. 3-D MIPS images are created and assessed. IV contrast was administered without complication. All measurements were calculated based on NASCET criteria. A dose lowering technique was utilized adhering to the principles of ALARA. FINDINGS: Brain parenchyma: There is age-related involutional change noting mild subcortical and periventricular microangiopathic disease. There is no hemorrhage, mass effect, or evidence of acute territorial ischemia by CT criteria. There is no evidence of enhancing mass lesion on the angiogram phase images. The ventricles, sulci, and cisterns are normal in configuration. Myrick- white matter differentiation is preserved. No extra-axial fluid collection is seen. Thoracic aorta: Visualized portions of the thoracic aorta are normal in caliber. The aortic arch demonstrates standard 3-vessel anatomy. Right carotid arterial system: The right common carotid artery is widely patent, as are the right internal and external carotid arteries. Left carotid arterial system: The left common carotid artery is widely patent, as are the left internal and external carotid arteries. Minimal calcified plaque is seen in the carotid bulb. Vertebral arteries: The right vertebral artery is widely patent. The proximal and mid portions of the T11 are patent. 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 This is reconstituted at the skull base. Subclavian arteries: Widely patent bilaterally. Intracranial vasculature: The internal carotid arteries are patent at the skull base, as are the anterior and middle cerebral arteries bilaterally. The vertebrobasilar system and posterior cerebral arteries are widely patent. There are bilateral posterior communicating arteries. The right vertebral artery is dominant. There is no aneurysm, high-grade stenosis, or focal vessel cut off seen throughout the intracranial circulation. Jugular veins: Patent bilaterally. Dural sinuses: Patent. Lung apices: Partially visualized upper lobe lung parenchyma appears clear. Soft tissues: The visualized pharyngeal soft tissues are normal in appearance noting angiographic phase technique. The oropharyngeal airway appears widely patent. The thyroid gland is heterogeneous. The salivary glands are normal in appearance. No cervical lymphadenopathy is seen. Skeletal structures: The skeletal structures are osteopenic. The calvarium appears intact. The cervical spine is maintained noting moderate multilevel cervical spondylosis. There are numerous osteolytic foci throughout the calvarium and cervical spine which are new from previous and typical for bony metastatic disease. Orbits: The bony orbits are intact. Orbital contents are normal as visualized. Sinuses and mastoids: The paranasal sinuses are clear. The mastoid air cells are well pneumatized. IMPRESSION: 1. There is no hemorrhage, mass effect, or evidence of acute territorial ischemia by CT criteria. 2. Unremarkable CT angiogram of the brain. 3. 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 This is reconstituted at the skull base. 4. Otherwise unremarkable CT angiogram of the neck. The carotid arteries and right vertebral artery are widely patent. 5. 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 ACT 112: Negative or not required by law. Electronically signed by: Rishi Kwon M.D. 04/26/2022 12:12 AM Chest X-Ray 04/27/22 09:22 XR chest 1V portable HISTORY: Shortness of breath. pneumonia COMPARISON: Chest 04/25/2022. FINDINGS: There are low lung volumes. No pneumothorax. The heart remains mildly enlarged. There are small bilateral pleural effusions with bibasilar airspace opacities consistent with a pneumonia. This is similar to the prior study. The upper lung zones remain clear. No evidence for pulmonary edema. IMPRESSION: Redemonstration of the bibasilar airspace opacities with small bilateral pleural effusions. This likely represents a pneumonia. ACT 112: Negative or not required by law. Electronically signed by: Rizwan Hilario M.D. 04/27/2022 10:52 AM PG Care Time/CCT Total # of Minutes Spent Total Time Spent with Patient: Total time spent is greater than 50% in coordination of care (as documented) at patient's floor/unit and/or counseling patient: [place] [address] Inpt Consult Level 4 Patient Type New History Expanded Problem Focused Exam Expanded Problem Focused Medical Decision Making High Complexity Diagnoses Metastatic breast cancer C50.919 Dyspnea and respiratory abnormalities R06.00; R06.89 Thrombosis I82.90
[2022-04-30] MEDS: MoRPHine SULFATE 5 MG/0.25 ML UDP PO PRN ×8 (00:45→13:37)
[2022-04-30] MEDS: LORazepam 1 MG in SYRINGE 0 ML IV PRN ×4 (00:52→12:11)
[2022-04-30] MEDS: cefTRIAXone SODIUM 1,000 MG in DEXTROSE 5% AD-VAN 50 ML IV SCH (03:17)
[2022-04-30] MEDS: AZITHROMYCIN 250 MG in DEXTROSE 5% 250 ML IV SCH (04:21)
[2022-04-30] MEDS: ENOXAPARIN INJ 60 MG/0.6 ML SYR SQ SCH (06:22)
[2022-04-30] MEDS: FIRST - Mouthwash BLM 119 ML PO SCH ×3 (08:12→21:20)
[2022-04-30] MEDS ORDERED: MoRPHine SULFATE 5 MG/0.25 ML UDP PO PRN (14:02)
[2022-04-30] MEDS ORDERED: HYDROmorphone PCA 30 MG/30 ML IV PRN (14:10)
[2022-04-30] MEDS ORDERED: MoRPHine SULFATE 10 MG/0.5 ML UDP PO PRN (14:13)
--- NOTE | 2022-04-30 14:44 | Hospitalist Progress Note ---
Date of Service April 30, 2022 Assessment & Plan (1) Pneumonia: Plan: Admitted on account of functional decline Found to have lobar PNA on Chest xray She was on intravenous Rocephin and azithromycin for 5 days, but patient continued to decline clinically Repeat chest x ray was unchanged Family decided to sign up for hopsice All meds now discontinued in the spirit of comfort care (2) History of right breast cancer: Plan: History of metastatic breast cancer with involvement of liver and spine as well as skull. No brain mets to the knowledge of patient's daughter. Xeloda on hold while being treated for active infection. CT scan shows worsening bone mets and worsening cancer burden on the lungs Oncology did not see any benefit of chemotherapy palliative on board, family opted for comfort care and home with hospice However, patient still on 15L oxygen, hospice are only able to work with 10L She continues to decline, she is now not responding to stimuli (3) Atrial fibrillation with rapid ventricular response: Plan: Patient with atrial fibrillation with RVR s/p diltiazem bolus and gtt started in the ED. Meds now discontinued in the spirit of comfort care (4) Elevated LFTs: Plan: Patient with known liver metastases. Not significantly worse than prior. Serial labs. (5) Depression: (6) Hypokalemia: Plan: Oral replacement. Serial labs Plan Home with hospice if we are able to wean her oxygen down to 10L Admission and Anticipated Discharge Date Admission Date: April 26, 2022 Subjective patient seen and examined, on high oxygen, not responsive, son in law by the bedside Review of Systems Review of Systems: unable to obtain Physical Exam Physical Exam: The patient is unresponsive, labored breathing HEENT--PERRL, EOMI, mucous membranes and oropharynx mildly dry Neck--No JVD Heart--normal S1 and S2. No murmurs, rubs or gallops. Lungs--reduced air entry Abdomen--normal bowel sounds and soft. Mild epigastric and left sided abdominal pain Extremities--poor muscle tone Dermatologic--normal skin turgor, normal color, no abnormal lymph nodes, no rash. Neurologic--labored breathing, unresponsive Rheumatologic--normal range of motion. Psychiatric--unable to assess Results & Data Results & Data ([facility]) Vital Signs (Past 12 Hours) Vital Signs O2 Del Method O2 Flow Rate 04/30/22 08:00 Oxymask 15 PG Care Time/CCT Total # of Minutes Spent Total Time Spent with Patient: Total time spent is greater than 50% in coordination of care (as documented) at patient's floor/unit and/or counseling patient: Coding Level of Care Code 99725 Subseq Hosp Care Lvl 2 Diagnoses Pneumonia J18.9 History of right breast cancer Z85.3 Atrial fibrillation with rapid ventricular response I48.91 Elevated LFTs R79.89 Depression F32.A Hypokalemia E87.6 Time Spent (min) 35
--- NOTE | 2022-04-30 14:49 | Palliative Family Discussion ---
Date of Service April 30, 2022 Patient Directed Conference Patient seen and family meeting held at bedside with her daughters x2 and son-in-law. Her nurse Jannette was able to join us as well. Patient is overall trending on the decline. Her respiratory distress has increased and she is requiring multiple doses of Roxanol. These helped for a short while but did not seem to last. Later this afternoon it was determined that she has not been able to take her methadone due to her weakness and continued decline. Because she has been on methadone for a long period of time and there is a risk of withdrawal, I will move her to a Dilaudid infusion with as needed Dilaudid ordered to be administered every 15 minutes as needed for breakthrough symptoms. Family in agreement with plan. I have updated the primary team. Orders for Dilaudid BAIT MAKER have been written and reviewed with pharmacy. I have stopped her methadone and oral Roxanol solution. I have advised the family we will work hard to continue to try and titrate the oxygen down. Time of this note she remains on oxime mask at 15 L/min. Until he r oxygen is at a 10 L flow rate she will not be able to go home with hospice was concentrators max at the 10 L flow. I have asked nursing to work on titrating oxygen down as her respiratory distress becomes more controlled. I have asked him to also use the as needed Dilaudid as needed until the BAIT MAKER started to assure that she is more comfortable. As needed Dilaudid may be administered every 15 m inutes as needed for this end-stage terminal breast cancer patient with respiratory failure.
[2022-04-30] MEDS: SODIUM CHLORIDE 0.9% 1000ML 1,000 ML IV SCH (15:15)
[2022-04-30] MEDS: HYDROmorphone Bolus from PCA IV PRN (15:16)
--- NOTE | 2022-05-01 06:46 | Hospitalist Progress Note ---
Date of Service April 30, 2022 Assessment & Plan (1) Metastatic breast cancer: Plan: Dramatic further deterioration unfortunately unequivocally excludes any further treatment beyond palliative/terminal care with no apparent hope for any significant recovery. Her daughters have accepted this and are constructively working with hospitalist and palliative care teams to optimize her comfort during her final hours. Plan No further oncologic intervention beyond comfort measures and terminal care would be appropriate. We will sign off, please reconsult if new questions arise. I will check informally with the patient and family from time to time while she remains hospitalized Admission and Anticipated Discharge Date Admission Date: April 26, 2022 Subjective Patient is moribund but seems reasonably comfortable. Her 2 daughters are at the bedside and certainly seem to understand the situation and are dealing with it as best one could expect Physical Exam Physical Exam: Wearing oxygen with some labored respirations but she does not seem to be in severe distress. Patient is unresponsive Results & Data Results & Data ([facility]) Vital Signs (Past 12 Hours) Vital Signs O2 Del Method O2 Flow Rate 04/30/22 23:00 Oxymask 15 PG Care Time/CCT Total # of Minutes Spent Total Time Spent with Patient: Total time spent is greater than 50% in coordination of care (as documented) at patient's floor/unit and/or counseling patient: Coding Level of Care Code 48230 Subseq Hosp Care Lvl 1 Diagnoses Metastatic breast cancer C50.919
[2022-05-01] MEDS: FIRST - Mouthwash BLM 119 ML PO SCH ×3 (07:54→22:18)
[2022-05-01] MEDS: HYDROmorphone Bolus from PCA IV PRN ×2 (11:33→16:54)
--- NOTE | 2022-05-01 15:56 | Hospitalist Progress Note ---
Date of Service May 01, 2022 Assessment & Plan (1) Pneumonia: Plan: Admitted on account of functional decline Found to have lobar PNA on Chest xray She was on intravenous Rocephin and azithromycin for 5 days, but patient continued to decline clinically Repeat chest x ray was unchanged Family decided to sign up for hopsice All meds now discontinued in the spirit of comfort care and hospice currently on comfort medications (2) History of right breast cancer: Plan: History of metastatic breast cancer with involvement of liver and spine as well as skull. No brain mets to the knowledge of patient's daughter. Xeloda on hold while being treated for active infection. CT scan shows worsening bone mets and worsening cancer burden on the lungs Oncology did not see any benefit of chemotherapy palliative on board, family opted for comfort care and home with hospice She continues to decline, she is now not responding to stimuli Now on comfort care, for home hospice tomorrow (3) Atrial fibrillation with rapid ventricular response: Plan: Patient with atrial fibrillation with RVR s/p diltiazem bolus and gtt started in the ED. Meds now discontinued in the spirit of comfort care (4) Elevated LFTs: Plan: Patient with known liver metastases. Not significantly worse than prior. Serial labs. (5) Depression: (6) Hypokalemia: Plan: Oral replacement. Serial labs Plan Home with hospice tomorrow Admission and Anticipated Discharge Date Admission Date: April 26, 2022 Subjective patient seen and examined, son in law by the bedside, she is not responsive, appears comfortable Review of Systems Review of Systems: unable to obtain Physical Exam Physical Exam: The patient is unresponsive, labored breathing HEENT--PERRL, EOMI, mucous membranes and oropharynx mildly dry Neck--No JVD Heart--normal S1 and S2. No murmurs, rubs or gallops. Lungs--reduced air entry Abdomen--normal bowel sounds and soft. Mild epigastric and left sided abdominal pain Extremities--poor muscle tone Dermatologic--normal skin turgor, normal color, no abnormal lymph nodes, no rash. Neurologic--labored breathing, unresponsive Rheumatologic--normal range of motion. Psychiatric--unable to assess Results & Data Results & Data ([facility]) Vital Signs (Past 12 Hours) Vital Signs O2 Del Method O2 Flow Rate 05/01/22 08:00 Oxymask 15 PG Care Time/CCT Total # of Minutes Spent Total Time Spent with Patient: Total time spent is greater than 50% in coordination of care (as documented) at patient's floor/unit and/or counseling patient: Coding Level of Care Code 08663 Subseq Hosp Care Lvl 2 Diagnoses Pneumonia J18.9 History of right breast cancer Z85.3 Atrial fibrillation with rapid ventricular response I48.91 Elevated LFTs R79.89 Depression F32.A Hypokalemia E87.6 Time Spent (min) 35
[2022-05-01] MEDS: SODIUM CHLORIDE 0.9% 1000ML 1,000 ML IV SCH (16:20)
--- NOTE | 2022-05-01 16:24 | Palliative Care Progress Note ---
Date of Service May 01, 2022 Assessment & Plan (1) Palliative care encounter: Plan: * Terminal breast cancer, pt with continued decline * Home with hospice on dilaudid infusion, confirmed with Wilton the hospice pharmacist at [phone] (2) Cancer related pain: Plan: Patient's pain is managed with methadone 5 mg p.o. twice daily. she can no longer take PO, so dilaudid infusion was started at 0.4mg per hour, no WOOD ROOM HAND as pt cannot operate it. she has not needed any BTP opioids since infusion started. no change at this time. Present on Admission?: Yes (3) Advanced care planning/counseling discussion: Plan: Met with family at bedside Additional hospice related questions answered. They are peaceful with the plan to honor her wish to be at home, hospice has delivered all DME. Of note, asked about his upcoming endoscopy - it is a procedure or surgery, says this si bc he has a hernia - I have advised him to contact his endo provider for more assistance. 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 (5) Acute hypoxemic respiratory failure: Plan: terminal resp failure, on hospice (6) Metastatic breast cancer: Present on Admission?: Yes (7) Bone metastases: Plan: Progression of osteolytic lesions noted in the cervical spine. Present on Admission?: Yes Plan * I have written order for dilaudid infusion and provided this to care management to submit the referral to hospice. * I have confirmed order with hospice pharmacist. * likely dc to home with hospice tomorrow Shelli Araiza DNP Clinical Director, Palliative Medicine Admission and Anticipated Discharge Date Admission Date: April 26, 2022 Subjective pt seed bedside with dtJEANINE garcia and today, pt was present. the dilaudid infusion has helped improve patient's resp distress and oxygen was able to be reduced to NC 6lpm, which she remains at comfortably. there is no distress, she has not required overnight BTP meds but just prior to my visit some ativan was used for restlessness. she has just been repositioned and appears to be resting peacefully. patient is no longer interactive. she is occasionally arousable but sleeping most of the time. family would like to honor her wish to come home - care mgt is working on this Review of Systems Review of Systems: Unobtainable due to cognitive status Physical Exam Physical Exam: deferred, pt is resting peacefully/see HPI Results & Data ([facility]) Vital Signs (Past 12 Hours) Vital Signs O2 Del Method O2 Flow Rate 05/01/22 08:00 Oxymask 15 Laboratory Results reviewed Diagnostic Findings reviewed PG Care Time/CCT Total # of Minutes Spent Total Time Spent: 90 Total Time Spent with Patient: Total time spent is greater than 50% in coordination of care (as documented) at patient's floor/unit and/or counseling patient:I spent 90 minutes overall addressing this case: 10 in medical data review/discussion with referring provider(s) and/or preparation for the visit 45 in direct interaction with the patient and family, CM and primary team 15 in subsequent review and synthesis of assessment and plan 20 in communicating with other providers regarding the patient's case: multile discussions, calls and messgaing with hospice pharmacy, CM, nursing, primary team [place] [address] Subseq Hosp Care Lvl 3 Patient Type Established History Detailed Exam Detailed Medical Decision Making Moderate Complexity Diagnoses Palliative care encounter Z51.5 Cancer related pain G89.3 Advanced care planning/counseling discussion Z71.89 Dyspnea and respiratory abnormalities R06.00; R06.89 Acute hypoxemic respiratory failure J96.01 Metastatic breast cancer C50.919 Bone metastases C79.51
[2022-05-01] MEDS: LORazepam 1 MG in SYRINGE 0 ML IV PRN (17:21)
[2022-05-02] MEDS: FIRST - Mouthwash BLM 119 ML PO SCH ×2 (08:05→13:37)
[2022-05-02] MEDS: LORazepam 1 MG in SYRINGE 0 ML IV PRN (11:59)
--- NOTE | 2022-05-02 13:11 | Palliative Care Progress Note ---
Date of Service May 02, 2022 Assessment & Plan (1) Palliative care encounter: Plan: Pt has transitioned to a more active dying phase, anticipate survival in hours to days. Daughter Marilou and son in law Sebas at bedside. They want to try to honor patient's wishes to be home for EOL care and ask if she can be dc home, hospice has delivered equipment and they are ready to accept pt at home, the grandchildren want to see pt and have their opportunity for final goodbyes. (2) Dyspnea and respiratory abnormalities: (3) Acute hypoxemic respiratory failure: (4) Metastatic breast cancer: (5) Bone metastases: (6) Cancer related pain: Plan * Met with family at bedside together with Lizbeth SHIPLEY * Family strongly desire home hospice dc * CM has transport arranged for 1700. We will work to try getting pt home and I have advised Marilou and her brother in law Sebas that if anything changes/declines between now and transport time, we reserve the right to cancel the dc. Family in agreement. * Primary teams updated. * Hospice meds Ativan and Roxanol sent to [facility]. Admission and Anticipated Discharge Date Admission Date: April 26, 2022 Mira Upton remains on comfort care she is less responsive daughters have noted some mild apnea lasting up to 3 sec she is not arousable today Review of Systems Review of Systems: Unobtainable due to reduced consciousness Physical Exam Physical Exam: Frail elderly female, resting in bed, asleep/non responsive. remains cachectic and very frail appearing. Color is extremely pale. Her skin is warm to touch. She is using accessory muscles to breathe, +abd breathing noted and +JVD noted. Lung sounds diminished with coarse rhonchi, scattered rales, no wheezing. Posteriorly she has diffuse rhonchi, faint crackles at the bases. slight apnea of 2-3 sec. no snoring. no flaring nostrils. remain on nasal cannula 3lpm. Her abdomen is scaphoid, BS diminished. She is non responsive. Results & Data ([facility]) Vital Signs (Past 12 Hours) Vital Signs Temp Pulse Resp BP BP Pulse Ox O2 Del Method 05/02/22 12:49 36.6 C 104 H 24 117/71 143/80 H 94 05/02/22 08:00 Nasal Cannula O2 Flow Rate 05/02/22 12:49 05/02/22 08:00 3 PG Care Time/CCT Total # of Minutes Spent Total Time Spent: 68 Total Time Spent with Patient: Total time spent is greater than 50% in coordination of care (as documented) at patient's floor/unit and/or counseling yespatient: Prolonged Care Time Prolonged Care Time: Yes Coding [place] [address] Subseq Hosp Care Lvl 3 Patient Type Established History Detailed Exam Detailed Medical Decision Making Moderate Complexity Diagnoses Palliative care encounter Z51.5 Dyspnea and respiratory abnormalities R06.00; R06.89 Acute hypoxemic respiratory failure J96.01 Metastatic breast cancer C50.919 Bone metastases C79.51 Cancer related pain G89.3 Additional Codes Prolonged Care Time - Prolonged Care Time: Yes ([id number])
--- NOTE | 2022-05-02 14:41 | Discharge Summary ---
Date of Service May 02, 2022 Admission HPI Per Admitting Provider Alexsandra Griffin is a 81yo female with metastatic breast cancer with involvement of the liver and spine. Patient receives her cancer care at [place]. She has received XRT to spinal lesions in her thoracic as well as cervical spine. She is on Xeloda currently. Patient was seen by her PCP several days ago with complaint of imbalance and difficulty with speech ongoing for the last several weeks. She has had progressive decline in her balance and ambulation, however, daughter notes a marked decline over the last week. She also has difficulty speaking. She was told that she has PNA and was started on Levaquin on 04/23. Her Xeloda was held during acute infection. This evening patient developed shortness of breath. Also with some confusion and somnolence. She has not had fever or chills. No cough. No complaint of abdominal pain, nausea, vomiting. She did have a loose stool x 1, otherwise no GI complaints. No additional complaints at this time. In the ER she is tachycardic, hypoxic to 85% on room air. She was placed on 5L Oxymask. Patient had an episode of atrial fibrillation and decline in saturation. She was given Cardizem bolus and started on a drip and placed on Bi PAP. ER Course: Azithromycin 500mg IV Ceftriaxone 1gm IV LR + KCl Diltiazem 10mg IV then gtt Albuterol neb NSS x 1.5L Meropenem x 1 gm Principal Diagnosis metastatic breast cancer Discharge Exam The patient is unresponsive, labored breathing HEENT--PERRL, EOMI, mucous membranes and oropharynx mildly dry Neck--No JVD Heart--normal S1 and S2. No murmurs, rubs or gallops. Lungs--reduced air entry Abdomen--normal bowel sounds and soft. Mild epigastric and left sided abdominal pain Extremities--poor muscle tone Dermatologic--normal skin turgor, normal color, no abnormal lymph nodes, no rash. Neurologic--labored breathing, unresponsive Rheumatologic--normal range of motion. Psychiatric--unable to assess Discharge Data Allergies Allergy/AdvReac Type Severity Reaction Status Date / Time amoxicillin Allergy Unknown . Verified 04/26/22 00:54 doxycycline Allergy Unknown . Verified 04/26/22 00:54 tetracycline Allergy Unknown Unknown Verified 04/26/22 00:54 prednisone AdvReac Mild LOSES HER Verified 04/26/22 00:54 TASTE Consultations 04/26/22 00:06 ED Decision to Admit Stat 04/28/22 10:58 Consult Palliative Care Routine 04/29/22 07:51 Consult Oncology Routine Ordered Studies 04/25/22 22:04 CT angio chest PE protocol Urgent 04/25/22 22:21 CT angio head w con Urgent CT angio neck with con Urgent CT head/brain wo con Urgent Hospital Course (1) Pneumonia: Admitted on account of functional decline Found to have lobar PNA on Chest xray She was on intravenous Rocephin and azithromycin for 5 days, but patient continued to decline clinically Repeat chest x ray was unchanged Family decided to sign up for hopsice All meds now discontinued in the spirit of comfort care and hospice currently on comfort medications (2) History of right breast cancer: History of metastatic breast cancer with involvement of liver and spine as well as skull. No brain mets to the knowledge of patient's daughter. Xeloda on hold while being treated for active infection. CT scan shows worsening bone mets and worsening cancer burden on the lungs Oncology did not see any benefit of chemotherapy palliative on board, family opted for comfort care and home with hospice She continues to decline, she is now not responding to stimuli Now on comfort care, for home hospice tomorrow (3) Atrial fibrillation with rapid ventricular response: Patient with atrial fibrillation with RVR s/p diltiazem bolus and gtt started in the ED. Meds now discontinued in the spirit of comfort care (4) Elevated LFTs: Patient with known liver metastases. Not significantly worse than prior. Serial labs. (5) Depression: (6) Hypokalemia: Oral replacement. Serial labs Plan Home with hospice today Total Time Total Time Spent Total Time Spent (In Minutes): 35 Discharge Plan Discharge Items Patient Disposition: Hospice - Home Reason For Visit: PNEUMONIA Discharge Diagnosis: meatstatic breast cancer Goals: comfort care end of life Activity: Resume your previous activity Lifting: None Bathing: No limitations Exercise/Sports: None Non-emergency contact: Primary Care Provider Call non-emergency contact if: you have any medication questions Follow-up/Referrals: Ange Cohen DO [Primary Care Provider] - Diet: Regular Addtl Attending Provider Instructions: please follow up with your home hospice team Pending Studies at Discharge: No Stand-Alone Forms: [email or web address] Medications and DC Order Prescriptions: New morphine 10 mg/5 mL solution 10 mg buccal Q15M MDD 40mg PRN (Reason: dyspnea) 30 Days Qty: 30 0RF Rx Instructions: 5ml buccal q15min as needed for air hunger, eol cancer pain lorazepam [Ativan] 1 mg tablet 1 mg buccal DAILY PRN (Reason: sedation) 30 Days Qty: 20 0RF Discontinued aspirin 81 mg Tablet,Delayed Release (Dr/Ec) 81 mg PO QAM prochlorperazine maleate 5 mg tablet 5 mg PO Q6 PRN (Reason: Nausea) levofloxacin 500 mg tablet 500 mg PO DAILY Rx Instructions: ordered 04/23/22 for 10 days furosemide 40 mg tablet 80 mg PO QAM sennosides [senna] 8.6 mg tablet 17 mg PO BID Sentry 18-400 mg-mcg tablet 1 tab PO DAILY calcitonin (salmon) 200 unit/actuation spray,non-aerosol 1 spray intranasal (ALT) DAILY pantoprazole 40 mg tablet,delayed release (DR/EC) 40 mg PO DAILY duloxetine 60 mg capsule,delayed release(DR/EC) 60 mg PO DAILY hydromorphone 2 mg tablet 2 - 4 mg PO Q4 PRN (Reason: Pain) methadone 5 mg tablet 5 mg PO BID vitamin B complex Tablet 1 tab PO DAILY PreserVision AREDS-2 250-90-40-1 mg Capsule 1 tab PO BID polyethylene glycol 3350 [Miralax] 17 gram Powder In Packet 17 g PO DAILY PRN (Reason: constipation) Qty: 30 0RF Discharge Orders: Discharge Order (Routine); Ordered 05/02/22 Ordered By: Fan Sultana Admission Data Admit Date/Time: 04/26/22 00:16 Attending Provider: Fan Sultana Admit Provider: Alexsandra Moran Primary Care Provider: Ange Cohen Other Providers: Alexsandra Moran ; Christal Leiva ; Rupert Haq ; [facility] Other Interventions: Discharge Summary Assessment (RN) Last Done: 05/02/22 12:49 Coding Level of Care Code D/C DAY MANAGEMENT >30 MINS Diagnoses Pneumonia J18.9 History of right breast cancer Z85.3 Atrial fibrillation with rapid ventricular response I48.91 Elevated LFTs R79.89 Depression F32.A Hypokalemia E87.6 Time Spent (min) 35
== END 2022-05-02 17:00 | disposition hospice, home (50) | DRG 871 ==
LOC: ED 20:50 → SUATTDRO 04-26 00:16 → 2S 04-26 00:16 → 3W 04-30 21:37